=== PATIENT | male | born 1955 | race Caucasian/White ===

== ENCOUNTER 2017-11-23 18:38 | Inpatient (IN) | payer MEDICAID ==
[2017-11-23 19:18] LABS: MEAN PLATELET VOLUME 7.8 fl; RED BLOOD COUNT 3.59 Mil/cmm (4.30-5.70)
[2017-11-23 19:23] LABS: HEMATOCRIT 27.3 % (41.0-60); HEMOGLOBIN 8.9 gm/dL (12-16); MEAN CELL VOLUME 76.2 fl (80-99); MEAN CORPUSCULAR HEMOGLOBIN 24.8 pg (26.0-30.0); MEAN CORPUSCULAR HGB CONC 32.5 pg (28.0-36.0); PLATELET COUNT 473 Th/cmm (150-400); RED CELL DISTRIBUTION WIDTH 15.6 % (11.5-20.0)
--- NOTE | 2017-11-23 19:23 | ED Physician Chart ---
ED Chief Complaint/HPI - Patient Information Date Seen:: 11/23/17 Time Seen:: 18:55 Chief Complaint:: ALOC History of Present Illness:: onset x one day of ALOC, AMS, and weakness; no report of trauma, H/As, S/T, neck pain, C/P, SOB, Abd. Pain, A/N/V/D/C, fever, chills, or urinary s/s; pt's last tetanus shot: < 5 years; UTD Allergies:: Allergies Allergy/AdvReac Type Severity Reaction Status Date / Time UNOBTN - Unobtainable Allergy Verified 11/23/17 18:57 Vitals:: Vital Signs - 8 hr 11/23/17 18:57 Temp 97.9 F HR 80 RR 22 BP 109/49 O2 Sat % 96 Historian:: Patient, EMS Review:: Nurse's Note Reviewed, Old Chart Reviewed, EMS run form Reviewed <Alec Stout - Last Filed: 11/23/17 19:20> - Patient Information Allergies:: Allergies Allergy/AdvReac Type Severity Reaction Status Date / Time UNOBTN - Unobtainable Allergy Verified 11/23/17 18:57 Vitals:: Vital Signs - 8 hr 11/23/17 18:57 Temp 97.9 F HR 80 RR 22 BP 109/49 O2 Sat % 96 <Long Saini - Last Filed: 11/23/17 22:19> ED Review of Systems - Review of Systems General/Constitutional: Fever, No chills, No weight loss, Weakness, No diaphoresis, No edema, No loss of appetite Skin: No skin lesions, No rash, No bruising Head: No headache, No light-headedness Eyes: No loss of vision, No pain, No diplopia ENT: No earache, No nasal drainage, No sore throat, No tinnitus Neck: No neck pain, No swelling, No thyromegaly, No stiffness, No mass noted Cardio Vascular: No chest pain, No palpitations, No PND, No orthopnea, No edema Pulmonary: No SOB, No cough, No sputum, No wheezing GI: No nausea, No vomiting, No diarrhea, No pain, No melena, No hematochezia, No constipation, No hematemesis G/U: No dysuria, No frequency, No hematuria, No nacturia Musculoskeletal: No bone or joint pain, No back pain, No muscle pain Endocrine: No polyuria, No polydipsia Psychiatric: No prior psych history, No depression, No anxiety, No suicidal ideation, No homicidal ideation, No auditory hallucination, No visual hallucination Hematopoietic: No bruising, No lymphadenopathy Allergic/Immuno: No urticaria, No angioedema Neurological: No syncope, No focal symptoms, No weakness, No paresthesia, No headache, No seizure, No dizziness, Confusion, No vertigo <ElizabethkaylindennyAlec - Last Filed: 11/23/17 19:20> ED Past Medical History - Past Medical History Obtainable: Yes Past Medical History: HTN, Dyslipidemia, Dementia Family History: HTN Social History: Smoker, Alcohol, No Drug Use, Single Surgical History: None Psychiatricy History: Dementia Medication: Reviewed <ElizabethkaylindennyAlec - Last Filed: 11/23/17 19:20> ED Physical Exam - Physical Examination General/Constitutional: Awake, Well-developed, well-nourished, Alert, No distress, GCS 15, Non-toxic appearing, Ambulatory Head: Atraumatic Eyes: Lids, conjuctiva normal, PERRL, EOMI Skin: Nl inspection, No rash, No skin lesions, No ecchymosis, Well hydrated, No lymphadenopathy ENMT: External ears, nose nl, TM canals nl, Nasal exam nl, Lips, teeth, gums nl , Oropharynx nl, Tonsils nl Neck: Nontender, Full ROM w/o pain, No JVD, No nuchal rigidity, No bruit, No mass, No stridor Respiratory: Nl effort/Exclusion, Clear to Auscultation, No Wheeze/Rhonchi/Rales Cardio Vascular: RRR, No murmur, gallop, rubs, NL S1 S2, Carotid/Femoral/Distal pulses equal bilaterally GI: No tenderness/rebounding/guarding, No organomegaly, No hernia, Normal BS's, Nondistended, No mass/bruits, No McBurney tenderness, Rectum exam nl : No CVA tenderness Extremities: No tenderness or effusion, Full ROM, normal strength in all extremities, No edema, Normal digits & nails Neuro/Psych: Alert/oriented, DTR's symmetric, Normal sensory exam, Normal motor strength, Judgement/insight normal, Mood normal, Normal gait, No focal deficits Misc: Normal back, No paraspinal tenderness <Alec Stout - Last Filed: 11/23/17 19:20> ED Labs/Radiology/EKG Results - Lab Results Results: Laboratory Tests 11/23/17 11/23/17 11/23/17 19:05 19:05 19:05 WBC 16.3 H RBC 3.59 L Hgb 8.9 L Hct 27.3 L MCV 76.2 L MCH 24.8 L MCHC Differential 32.5 RDW 15.6 Plt Count 473 H MPV 7.8 Add Manual Diff YES Neutrophils % [employer] Band Neutrophils % 3 Lymphocytes % [employer] Monocytes % [employer] Eosinophils % [employer] Basophils % [employer] Neutrophils (Manual) 60 Lymphocytes 29 Monocytes 5 Eosinophils 3 Microcytosis 1+ PT 11.3 INR 1.09 Sodium 137 Potassium 3.9 Chloride 108 H Carbon Dioxide 20.2 L Anion Gap 12.7 BUN 21 Creatinine 0.9 Est GFR ( Amer) > 60.0 Est GFR (Non-Af Amer) > 60.0 BUN/Creatinine Ratio 23.3 Glucose 98 Calcium 8.8 Total Bilirubin 0.2 L AST 12 L ALT 8 Alkaline Phosphatase 55 Creatine Kinase 113 Troponin I B-Natriuretic Peptide Total Protein 8.7 H Albumin 3.4 L Globulin 5.3 Albumin/Globulin Ratio 0.6 L Triglycerides 68 Cholesterol 147 LDL Cholesterol Direct 98 HDL Cholesterol 36 Ethyl Alcohol 11/23/17 11/23/17 11/23/17 19:05 19:05 19:05 WBC RBC Hgb Hct MCV MCH MCHC Differential RDW Plt Count MPV Add Manual Diff Neutrophils % Band Neutrophils % Lymphocytes % Monocytes % Eosinophils % Basophils % Neutrophils (Manual) Lymphocytes Monocytes Eosinophils Microcytosis PT INR Sodium Potassium Chloride Carbon Dioxide Anion Gap BUN Creatinine Est GFR ( Amer) Est GFR (Non-Af Amer) BUN/Creatinine Ratio Glucose Calcium Total Bilirubin AST ALT Alkaline Phosphatase Creatine Kinase Troponin I < 0.01 L B-Natriuretic Peptide 168.0 H Total Protein Albumin Globulin Albumin/Globulin Ratio Triglycerides Cholesterol LDL Cholesterol Direct HDL Cholesterol Ethyl Alcohol 274 H - EKG Interpretations Rate & Rhythm: normal sinus rhythm with a rate of 87 [place]: normal Comments:: Premature atrial contractions <Long Saini - Last Filed: 11/23/17 22:19> ED Septic Shock - . Is Septic Shock (SBP<90, OR Lactate>4 mmol\L) present?: No - <6hrs of presentation: Vital Signs: Vital Signs - 8 hr 11/23/17 18:57 Temp 97.9 F HR 80 RR 22 BP 109/49 O2 Sat % 96 <Alec Stout - Last Filed: 11/23/17 19:20> - <6hrs of presentation: Vital Signs: Vital Signs - 8 hr 11/23/17 18:57 Temp 97.9 F HR 80 RR 22 BP 109/49 O2 Sat % 96 <Long Saini - Last Filed: 11/23/17 22:19> ED Reassessment (Disposition) - Reassessment Reassessment Condition:: Improved - Diagnosis Diagnosis:: ALOC; AMS; Weakness <Alec Stout - Last Filed: 11/23/17 19:20>
[2017-11-23 19:27] LABS: WHITE BLOOD COUNT 16.3 Th/cmm (4.8-10.8)
[2017-11-23 19:30] LABS: INR 1.09 (0.5-1.4); PROTHROMBIN TIME (TEST) 11.3 SECONDS (9.5-11.5)
[2017-11-23 19:35] LABS: ALB/GLOB RATIO 0.6 (1.0-1.8); ALBUMIN 3.4 gm/dL (4.2-5.5); ALKALINE PHOSPHATASE 55 U/L (34-104); ANION GAP 12.7 (7.0-16.0); BILIRUBIN,TOTAL 0.2 mg/dL (0.3-1.0); BUN - UREA NITROGEN 21 mg/dL (7-25); CALCIUM SERUM 8.8 mg/dL (8.6-10.3); CARBON DIOXIDE 20.2 mEq/L (21.0-31.0); CHLORIDE 108 mEq/L (98-107); CHOLESTEROL 147 mg/dL (<200); CREATININE - SERUM 0.9 mg/dL (0.7-1.3); CREATININE KINASE 113 U/L (30-223); GFR AFRICAN-AMERICAN > 60.0 ml/min (>90); GFR NON AFRICAN-AMERICAN > 60.0 ml/min; GLUCOSE 98 mg/dL (70-105); HDL -HIGH DENSITY LIPOPROTEIN 36 mg/dL (23-92); POTASSIUM SERUM 3.9 mEq/L (3.5-5.1); SGOT 12 U/L (13-39); SGPT/ALT 8 U/L (7-52); SODIUM SERUM 137 mEq/L (136-145); TOTAL PROTEIN,SERUM 8.7 gm/dL (6.0-8.3); TRIGLYCERIDES 68 mg/dL (<150)
[2017-11-23 19:40] LABS: BAND NEUTROPHILE 3 % (0-10); EOSINOPHIL 3 % (0-5); LYMPHOCYTE 29 % (20-50); MONOCYTE 5 % (2-10); NEUTROPHILS 60 % (40-80)
[2017-11-23] MEDS ORDERED: Sodium Chloride 0.9% 1,000 ML IV ONE (20:31)
[2017-11-24] MEDS ORDERED: D5-0.45NS 1,000 ML IV SCH (01:00)
[2017-11-24] MEDS ORDERED: Magnesium Sulfate 1 gm/2 mL 2mL Vial IV ONE (05:09)
[2017-11-24] MEDS ORDERED: Thiamine 100 mg/mL 2mL Vial ONE (05:13)
[2017-11-24] MEDS ORDERED: Multivitamin Inj 10 mL Vial IV ONE (05:14)
[2017-11-24] MEDS: Multivitamin Inj 10 ML, Thiamine HCL 100 MG, Magnesium Sulfate 2 GM, Folic Acid 1 MG in... IV SCH (05:34)
--- NOTE | 2017-11-24 05:45 | History and Physical ---
History of Present Illness - HPI Chief Complaint: ALOC HPI: 62 y/o male who presents to [facility] ER for ALOC. Patient was found unresponsive on a public transportation vehicle. Was bought here for evaluation and treatment. Patient had initial labwork done which revealed the following... WBC 16.3 H/H 8.9/27.3 platelets 473K Na 137 K 3.9 Bun 21 Cr 0.9 Glu 84 BNP 168 ETOH 274 Lactic Acid 1.85 Vital Signs: Last Vital Signs Temp 97.2 F 11/24/17 04:00 Pulse 76 11/24/17 05:00 Resp 21 11/24/17 05:00 BP 102/63 11/24/17 05:00 Pulse Ox 98 11/24/17 05:00 Past Medical History Cardiovascular: Report: HTN, Hyperlipidemia Pulmonary: Report: No Pertinent Hx FITNESS ASSISTANT: Report: Dementia GI: Report: No Pertinent Hx Psych: Report: No Pertinent Hx Musculoskeletal: Report: No Pertinent Hx Rheumatologic: Report: No pertinent Hx Infectious Disease: Report: No Pertinent Hx Renal/: Report: No Pertinent Hx Endocrine: Report: No Pertinent Hx Dermatology: Report: No Pertinent Hx - Past Surgical History Past Surgical History: No pertinent Hx Family Medical History - Family Member Mother History Unknown: Yes Social History Smoke: No Alcohol: Other (h/o ETOH abuse) Drugs: None Lives: Homeless - Medications Home Medications: Home Medication Medication Instructions Recorded Type Unobtainable 11/23/17 History - Allergies Allergies/Adverse Reactions: Allergies Allergy/AdvReac Type Severity Reaction Status Date / Time UNOBTN - Unobtainable Allergy Verified 11/23/17 18:57 Review of Systems - Review of Systems Review of Systems: unable to obtain due to patient's condition Constitutional: Report: No Significant Eyes: Report: No Significant ENT: Report: No Significant Respiratory: Report: No Significant Cardiovascular: Report: No Significant Gastrointestinal: Report: No Significant Genitourinary: Report: No Significant Musculoskeletal: Report: No Significant Skin: Report: No Significant Neurological: Report: Confusion Physical Exam - Physical Exam HEENT: Report: Ears Nose Throat within normal limits, Pharnyx within normal limits Neck: Report: Within normal limits Cardiovascular Systems: Report: +s1/s2 noted Respiratory: Report: Breath Sounds are within normal limits Abdomen: Report: Non-tender to palpation Back: Report: Inspection of back is within normal limits. Extremities: Report: Non-tender to palpation. Skin: Report: Color of skin is within normal limits Neuro/Psych: Report: Mood affect is within normal limits, A+Ox3 - Lab Results All Lab Results last 24 hours: Laboratory Results - last 24 hr 11/23/17 11/23/17 11/23/17 19:05 19:05 19:05 WBC 16.3 H RBC 3.59 L Hgb 8.9 L Hct 27.3 L MCV 76.2 L MCH 24.8 L MCHC Differential 32.5 RDW 15.6 Plt Count 473 H MPV 7.8 Add Manual Diff YES Neutrophils % RN CHRONIC Band Neutrophils % 3 Lymphocytes % RN CHRONIC Monocytes % RN CHRONIC Eosinophils % RN CHRONIC Basophils % RN CHRONIC Neutrophils (Manual) 60 Lymphocytes 29 Monocytes 5 Eosinophils 3 Microcytosis 1+ PT 11.3 INR 1.09 Sodium 137 Potassium 3.9 Chloride 108 H Carbon Dioxide 20.2 L Anion Gap 12.7 BUN 21 Creatinine 0.9 Est GFR ( Amer) > 60.0 Est GFR (Non-Af Amer) > 60.0 BUN/Creatinine Ratio 23.3 Glucose 98 POC Glucose Whole Bld Lactic Acid Calcium 8.8 Total Bilirubin 0.2 L AST 12 L ALT 8 Alkaline Phosphatase 55 Creatine Kinase 113 Troponin I B-Natriuretic Peptide Total Protein 8.7 H Albumin 3.4 L Globulin 5.3 Albumin/Globulin Ratio 0.6 L Triglycerides 68 Cholesterol 147 LDL Cholesterol Direct 98 HDL Cholesterol 36 Ethyl Alcohol 11/23/17 11/23/17 11/23/17 19:05 19:05 19:05 WBC RBC Hgb Hct MCV MCH MCHC Differential RDW Plt Count MPV Add Manual Diff Neutrophils % Band Neutrophils % Lymphocytes % Monocytes % Eosinophils % Basophils % Neutrophils (Manual) Lymphocytes Monocytes Eosinophils Microcytosis PT INR Sodium Potassium Chloride Carbon Dioxide Anion Gap BUN Creatinine Est GFR ( Amer) Est GFR (Non-Af Amer) BUN/Creatinine Ratio Glucose POC Glucose Whole Bld Lactic Acid Calcium Total Bilirubin AST ALT Alkaline Phosphatase Creatine Kinase Troponin I < 0.01 L B-Natriuretic Peptide 168.0 H Total Protein Albumin Globulin Albumin/Globulin Ratio Triglycerides Cholesterol LDL Cholesterol Direct HDL Cholesterol Ethyl Alcohol 274 H 11/23/17 11/23/17 11/24/17 20:20 23:15 00:22 WBC RBC Hgb Hct MCV MCH MCHC Differential RDW Plt Count MPV Add Manual Diff Neutrophils % Band Neutrophils % Lymphocytes % Monocytes % Eosinophils % Basophils % Neutrophils (Manual) Lymphocytes Monocytes Eosinophils Microcytosis PT INR Sodium Potassium Chloride Carbon Dioxide Anion Gap BUN Creatinine Est GFR ( Amer) Est GFR (Non-Af Amer) BUN/Creatinine Ratio Glucose POC Glucose 84 Whole Bld Lactic Acid 2.63 H* 1.85 Calcium Total Bilirubin AST ALT Alkaline Phosphatase Creatine Kinase Troponin I B-Natriuretic Peptide Total Protein Albumin Globulin Albumin/Globulin Ratio Triglycerides Cholesterol LDL Cholesterol Direct HDL Cholesterol Ethyl Alcohol - Assessment Assessment: Current Active Problems Problem Status Onset ALTERED MENTAL STATUS WITH OLD WOUNDS Acute ALOC ETOH abuse leukoctosis WBC 16K anemia hb 8.9 possible sepsis aspiration PNA elevated BNP hypotensive - Plan Plan: will order zosyn per pharmacy repeat CBC,CMP,lactic acid, BNP this AM chest xray NS keep NPO repeat ETOH level this AM
[2017-11-24] MEDS ORDERED: Piperacillin Sodium/Tazobact 3.375 gm Vial IV ONE (05:48)
[2017-11-24] MEDS ORDERED: Sodium Chloride 0.9% 1,000 ML IV SCH (06:00)
--- NOTE | 2017-11-24 08:42 | Diagnostic Imaging Report ---
CHEST X-RAY: AP view INDICATION: pain COMPARISON: None FINDINGS: Patient is rotated. Multiple chronic right rib fractures are noted. No focal consolidation pleural effusions or evidence of pneumothorax. Heart size is normal. Degenerative changes of the spine are noted. IMPRESSION: Limited exam due to rotation. Multiple old right rib fractures are noted. No evidence of pneumothorax Chronic lung changes with no focal consolidation identified.
--- NOTE | 2017-11-24 08:58 | Diagnostic Imaging Report ---
CHEST X-RAY: AP view INDICATION: pain COMPARISON: 11/23/2017 FINDINGS: Bilateral developing interstitial infiltrates are noted.. No consolidation or effusions heart size normal. Atherosclerosis is noted. IMPRESSION: Bilateral developing interstitial infiltrates. Clinical correlation recommended.
--- NOTE | 2017-11-24 09:07 | Diagnostic Imaging Report ---
Head CT without intravenous contrast Indication: Altered level of consciousness Comparison: None Technique: Axial images were obtained from the vertex to the skull base without IV contrast. Coronal reconstructions were made. Total DLP: 740, CTDI37 FINDINGS: Images of the brain obtained without contrast demonstrate no evidence of an acute hemorrhage. Atrophy is noted. The sheehan-white matter differentiation is preserved. The ventricles and basal cisterns are patent. No mass effect or midline shift. Note exam is limited due to motion. Nasal fractures are noted. Air-fluid levels are seen within the bilateral maxillary sinuses. There is irregularity of the lateral wall of the right orbit. No significant focal soft tissue swelling. IMPRESSION: Limited exam due to motion. No evidence of an acute intercranial hemorrhage. Nasal fractures. There are air-fluid levels in the paranasal sinuses which may be posttraumatic. There is slight irregularity of lateral wall of the right orbit which is probably due to suture line. A Nondisplaced fracture is considered less likely. Please correlate with the findings. If necessary follow-up CT facial bones may also be obtained for further assessment. Atrophy.
--- NOTE | 2017-11-24 09:15 | Diagnostic Imaging Report ---
CT cervical spine without IV contrast HISTORY: Trauma COMPARISON: None Technique: Axial images were obtained from the skull base to the upper thoracic spine without IV contrast. Multiplanar reconstructions were made. Total DLP: 356, CTDI16.8 FINDINGS: Exam is severely limited due to motion. Images of the cervical spine obtained without contrast multilevel degenerative changes advanced C4-C7. Multilevel facet degenerative changes are seen more pronounced on the left side. No gross fracture identified, however, assessment is limited due to motion. There is spinal scoliosis. No prevertebral soft tissue swelling. Biapical opacities are noted. IMPRESSION: Severely limited exam due to motion. No gross fracture identified, however, when clinically diffusible, repeat examination is recommended for further assessment. Multilevel advanced degenerative changes. Scoliosis. Biapical lung opacities probably due to scarring.
--- NOTE | 2017-11-24 10:16 | Consultation ---
Consult Note - Consult Note Service Date: 11/24/17 Referring Physician: Philip Mcqueen Consult Note: PHYSICIAN Consultation Note: Date of Admission: 11/23/17 Purpose of Consultation: Leukocytosis Chief Complaint: Patient MASHA BURK was admitted to location Intensive Care Unit with ALOC, POSSIBLE PNA ASPIRATION,ETOH. History of Present Illness: 62-year-old male with a past medical history of hyperlipidemia found unresponsive and one of the public transportation vehicle, breast. He was brought to the ER for further evaluation and management. He was found to have arm lysis and wound on left eyebrow with active bleeding. On initial evaluation his temperature was 97.9F and and WBC count was 16,300. Currently his responsive but sedated by Ativan. He is able to say his name but difficult to comprehend. Alcohol level was 274. Past Medical History: Hyperlipidemia, alcohol abuse. Allergies Allergy/AdvReac Type Severity Reaction Status Date / Time UNOBTN - Unobtainable Allergy Verified 11/23/17 18:57 Vital Signs Temp 97.5 F 11/24/17 08:00 Pulse 68 11/24/17 10:00 Resp 20 11/24/17 10:00 BP 91/57 11/24/17 10:00 Pulse Ox 99 11/24/17 10:00 Intake & Output 11/23/17 11/24/17 11/24/17 18:59 06:59 18:59 Intake Total 1050 Balance 1050 Weight (lbs) 63.503 kg 63.503 kg 60.872 kg Intake: Intake, IV Amount 1050 Piperacillin Sodium/ 50 Tazobact 3.375 gm In Dextrose 5% 50 ml @ 100 mls/hr IV Q6HR [facility] Rx#: [id number] Other: # Voids 3 # Bowel Movements 0 Weight Source Estimated Bedscale Bedscale Laboratory Results - last 24 hr 11/23/17 11/23/17 11/23/17 19:05 19:05 19:05 WBC 16.3 H RBC 3.59 L Hgb 8.9 L Hct 27.3 L MCV 76.2 L MCH 24.8 L MCHC Differential 32.5 RDW 15.6 Plt Count 473 H MPV 7.8 Add Manual Diff YES Neutrophils % [employer] Band Neutrophils % 3 Lymphocytes % [employer] Monocytes % [employer] Eosinophils % [employer] Basophils % [employer] Neutrophils (Manual) 60 Lymphocytes 29 Monocytes 5 Eosinophils 3 Microcytosis 1+ PT 11.3 INR 1.09 Sodium 137 Potassium 3.9 Chloride 108 H Carbon Dioxide 20.2 L Anion Gap 12.7 BUN 21 Creatinine 0.9 Est GFR ( Amer) > 60.0 Est GFR (Non-Af Amer) > 60.0 BUN/Creatinine Ratio 23.3 Glucose 98 POC Glucose Whole Bld Lactic Acid Calcium 8.8 Total Bilirubin 0.2 L AST 12 L ALT 8 Alkaline Phosphatase 55 Creatine Kinase 113 Troponin I B-Natriuretic Peptide Total Protein 8.7 H Albumin 3.4 L Globulin 5.3 Albumin/Globulin Ratio 0.6 L Triglycerides 68 Cholesterol 147 LDL Cholesterol Direct 98 HDL Cholesterol 36 Ethyl Alcohol 11/23/17 11/23/17 11/23/17 19:05 19:05 19:05 WBC RBC Hgb Hct MCV MCH MCHC Differential RDW Plt Count MPV Add Manual Diff Neutrophils % Band Neutrophils % Lymphocytes % Monocytes % Eosinophils % Basophils % Neutrophils (Manual) Lymphocytes Monocytes Eosinophils Microcytosis PT INR Sodium Potassium Chloride Carbon Dioxide Anion Gap BUN Creatinine Est GFR ( Amer) Est GFR (Non-Af Amer) BUN/Creatinine Ratio Glucose POC Glucose Whole Bld Lactic Acid Calcium Total Bilirubin AST ALT Alkaline Phosphatase Creatine Kinase Troponin I < 0.01 L B-Natriuretic Peptide 168.0 H Total Protein Albumin Globulin Albumin/Globulin Ratio Triglycerides Cholesterol LDL Cholesterol Direct HDL Cholesterol Ethyl Alcohol 274 H 11/23/17 11/23/17 11/24/17 20:20 23:15 00:22 WBC RBC Hgb Hct MCV MCH MCHC Differential RDW Plt Count MPV Add Manual Diff Neutrophils % Band Neutrophils % Lymphocytes % Monocytes % Eosinophils % Basophils % Neutrophils (Manual) Lymphocytes Monocytes Eosinophils Microcytosis PT INR Sodium Potassium Chloride Carbon Dioxide Anion Gap BUN Creatinine Est GFR ( Amer) Est GFR (Non-Af Amer) BUN/Creatinine Ratio Glucose POC Glucose 84 Whole Bld Lactic Acid 2.63 H* 1.85 Calcium Total Bilirubin AST ALT Alkaline Phosphatase Creatine Kinase Troponin I B-Natriuretic Peptide Total Protein Albumin Globulin Albumin/Globulin Ratio Triglycerides Cholesterol LDL Cholesterol Direct HDL Cholesterol Ethyl Alcohol 11/24/17 11/24/17 05:00 05:00 WBC RBC Hgb Hct MCV MCH MCHC Differential RDW Plt Count MPV Add Manual Diff Neutrophils % Band Neutrophils % Lymphocytes % Monocytes % Eosinophils % Basophils % Neutrophils (Manual) Lymphocytes Monocytes Eosinophils Microcytosis PT INR Sodium Potassium Chloride Carbon Dioxide Anion Gap BUN Creatinine Est GFR ( Amer) Est GFR (Non-Af Amer) BUN/Creatinine Ratio Glucose POC Glucose Whole Bld Lactic Acid 1.72 Calcium Total Bilirubin AST ALT Alkaline Phosphatase Creatine Kinase Troponin I B-Natriuretic Peptide Total Protein Albumin Globulin Albumin/Globulin Ratio Triglycerides Cholesterol LDL Cholesterol Direct HDL Cholesterol Ethyl Alcohol 71 H Home Medication Medication Instructions Recorded Type Unobtainable 11/23/17 History Current Medications Generic Name Dose Route Start Last Admin Trade Name Freq PRN Reason Stop Dose Admin Multivitamins/Minerals 10 ml/ 1,015.2 mls @ 100 mls/hr 11/24/17 06:00 05:34 Thiamine HCl 100 mg/ Magnesium IV 01/23/18 05:59 100 mls/hr Sulfate 2 gm/ Folic Acid 1 mg Q24H MOISES Administration / Sodium Chloride Piperacillin Sod/Tazobactam 50 mls @ 100 mls/hr 11/24/17 06:00 11/24/17 06:28 Sod 3.375 gm/ Dextrose IV 01/23/18 05:59 Infused Q6HR MOISES Infusion Dextrose/Sodium Chloride 1,000 mls @ 75 mls/hr 11/24/17 06:00 D5-0.9%Ns IV 01/23/18 05:59 .[id number] MOISES Lorazepam 0.5 mg 11/24/17 05:04 11/24/17 09:21 Ativan IVP 01/23/18 05:03 0.5 mg Q4HR PRN Administration Agitation Protocol Miscellaneous 1 ea 11/24/17 05:00 Zosyn Iv Per Pharmacy 01/23/18 04:59 PRN MOISES Pantoprazole Sodium 40 mg 11/24/17 09:00 11/24/17 09:20 Protonix IVP 01/23/18 08:59 40 mg DAILY MOISES Administration Review of Systems: A 12 point ROS was reviewed with the pertinent positive and negatives noted in the HPI. Social History Smoking Status Smoker, status unknown Drug Use No Alcohol Use Yes Family Medical History Family Medical History Start: 11/24/17 00: 18 Freq: ONCE Status: Active Protocol: Document 11/24/17 00:18 XHANG (Rec: 11/24/17 00:25 [id number] [id number]) Family Medical History Mother History Unknown Yes Physical Exam: General: Comfortable not in acute distress. HEENT: Head: NC NT. Face: Patient has laceration wound on and above the left eyebrow laterally. There is some active bleeding. Neck: Supple, no JVD. Cardio: S1 and S2 within normal limits. Respiratory: CTAP. Abdominal: Soft, nontender, nondistended bowel sounds present. Genital/Urinary: Deferred. Extremities: No cyanosis, no clubbing, no edema. Neurological: Alert and awake but upset and aggressive. Assessment: 1. Altered mental status due to alcohol abuse. 2. Leukocytosis or sepsis versus secondary aspiration pneumonia. 3. Laceration wound on left eyebrow/face. 4. Alcohol abuse. Plan: Check drug screen. Continue Zosyn. Thank you, Dr. Mcqueen for involving taking care of this patient. Signed, Ulices Tatum M.D. [id number]
[2017-11-24 15:42] LABS: AMPHETAMINE URINE NEGATIVE (NEGATIVE); BARBITURATES URINE NEGATIVE (NEGATIVE); BENZODIAZEPINES QUAL URINE POSITIVE (NEGATIVE); CANNABINOID THC NEGATIVE (NEGATIVE); COCAINE METABOLITE QUAL URINE NEGATIVE (NEGATIVE); METHADONE URINE NEGATIVE (NEGATIVE); METHAMPHETAMINES QUAL URINE NEGATIVE (NEGATIVE); OPIATES (MORPHINE) QUAL. URINE NEGATIVE (NEGATIVE); PHENCYCLIDINE (PCP) URINE NEGATIVE (NEGATIVE); TRICYCLICS (TCA) QUAL. URINE NEGATIVE (NEGATIVE)
[2017-11-25 05:27] LABS: ALB/GLOB RATIO 0.6 (1.0-1.8); ALBUMIN 2.5 gm/dL (4.2-5.5); ALKALINE PHOSPHATASE 43 U/L (34-104); ANION GAP 6.7 (7.0-16.0); BILIRUBIN,TOTAL 0.4 mg/dL (0.3-1.0); BUN - UREA NITROGEN 11 mg/dL (7-25); CALCIUM SERUM 8.1 mg/dL (8.6-10.3); CHLORIDE 108 mEq/L (98-107); CREATININE - SERUM 0.8 mg/dL (0.7-1.3); GFR AFRICAN-AMERICAN > 60.0 ml/min (>90); GFR NON AFRICAN-AMERICAN > 60.0 ml/min; GLUCOSE 104 mg/dL (70-105); POTASSIUM SERUM 3.7 mEq/L (3.5-5.1); SGOT 10 U/L (13-39); SGPT/ALT 6 U/L (7-52); SODIUM SERUM 134 mEq/L (136-145); TOTAL PROTEIN,SERUM 6.9 gm/dL (6.0-8.3)
--- NOTE | 2017-11-25 06:20 | General Progress Note ---
Subjective - Review of Systems Service Date: 11/25/17 Subjective: Patient is more awake and alert. Wants to eat. cooperative. less combative. Objective - Results Result Diagrams: 11/23/17 19:05 11/23/17 19:05 Recent Labs: Laboratory Last Values WBC 16.3 Th/cmm (4.8-10.8) H 11/23/17 19:05 RBC 3.59 Mil/cmm (4.30-5.70) L 11/23/17 19:05 Hgb 8.9 gm/dL (12-16) L 11/23/17 19:05 Hct 27.3 % (41.0-60) L 11/23/17 19:05 MCV 76.2 fl (80-99) L 11/23/17 19:05 MCH 24.8 pg (26.0-30.0) L 11/23/17 19:05 MCHC Differential 32.5 pg (28.0-36.0) 11/23/17 19:05 RDW 15.6 % (11.5-20.0) 11/23/17 19:05 Plt Count 473 Th/cmm (150-400) H 11/23/17 19:05 MPV 7.8 fl 11/23/17 19:05 Add Manual Diff YES 11/23/17 19:05 Neutrophils % MEDICAL TECHNOLOGIST CHEMISTRY 11/23/17 19:05 Band Neutrophils % 3 % (0-10) 11/23/17 19:05 Lymphocytes % MEDICAL TECHNOLOGIST CHEMISTRY 11/23/17 19:05 Monocytes % MEDICAL TECHNOLOGIST CHEMISTRY 11/23/17 19:05 Eosinophils % MEDICAL TECHNOLOGIST CHEMISTRY 11/23/17 19:05 Basophils % MEDICAL TECHNOLOGIST CHEMISTRY 11/23/17 19:05 Neutrophils (Manual) 60 % (40-80) 11/23/17 19:05 Lymphocytes 29 % (20-50) 11/23/17 19:05 Monocytes 5 % (2-10) 11/23/17 19:05 Eosinophils 3 % (0-5) 11/23/17 19:05 Microcytosis 1+ 11/23/17 19:05 PT 11.3 SECONDS (9.5-11.5) 11/23/17 19:05 INR 1.09 (0.5-1.4) 11/23/17 19:05 Sodium 137 mEq/L (136-145) 11/23/17 19:05 Potassium 3.9 mEq/L (3.5-5.1) 11/23/17 19:05 Chloride 108 mEq/L (98-107) H 11/23/17 19:05 Carbon Dioxide 20.2 mEq/L (21.0-31.0) L 11/23/17 19:05 Anion Gap 12.7 (7.0-16.0) 11/23/17 19:05 BUN 21 mg/dL (7-25) 11/23/17 19:05 Creatinine 0.9 mg/dL (0.7-1.3) 11/23/17 19:05 Est GFR ( Amer) > 60.0 ml/min (>90) 11/23/17 19:05 Est GFR (Non-Af Amer) > 60.0 ml/min 11/23/17 19:05 BUN/Creatinine Ratio 23.3 11/23/17 19:05 Glucose 98 mg/dL (70-105) 11/23/17 19:05 POC Glucose 84 MG/DL (70 - 105) 11/24/17 00:22 Whole Bld Lactic Acid 1.72 mmol/L (0.60-1.99) 11/24/17 05:00 Calcium 8.8 mg/dL (8.6-10.3) 11/23/17 19:05 Total Bilirubin 0.2 mg/dL (0.3-1.0) L 11/23/17 19:05 AST 12 U/L (13-39) L 11/23/17 19:05 ALT 8 U/L (7-52) 11/23/17 19:05 Alkaline Phosphatase 55 U/L (34-104) 11/23/17 19:05 Ammonia 63 umol/L (16-53) H 11/24/17 10:45 Creatine Kinase 113 U/L (30-223) 11/23/17 19:05 Troponin I < 0.01 ng/mL (0.01-0.05) L 11/23/17 19:05 B-Natriuretic Peptide 168.0 pg/mL (5.0-100.0) H 11/23/17 19:05 Total Protein 8.7 gm/dL (6.0-8.3) H 11/23/17 19:05 Albumin 3.4 gm/dL (4.2-5.5) L 11/23/17 19:05 Globulin 5.3 gm/dL 11/23/17 19:05 Albumin/Globulin Ratio 0.6 (1.0-1.8) L 11/23/17 19:05 Triglycerides 68 mg/dL (<150) 11/23/17 19:05 Cholesterol 147 mg/dL (<200) 11/23/17 19:05 LDL Cholesterol Direct 98 mg/dL (75-193) 11/23/17 19:05 HDL Cholesterol 36 mg/dL (23-92) 11/23/17 19:05 Urine Opiates Screen NEGATIVE (NEGATIVE) 11/24/17 15:00 Urine Methadone Screen NEGATIVE (NEGATIVE) 11/24/17 15:00 Ur Barbiturates Screen NEGATIVE (NEGATIVE) 11/24/17 15:00 Ur Tricyclics Screen NEGATIVE (NEGATIVE) 11/24/17 15:00 Ur Phencyclidine Scrn NEGATIVE (NEGATIVE) 11/24/17 15:00 Amphetamines Screen NEGATIVE (NEGATIVE) 11/24/17 15:00 U Methamphetamines Scrn NEGATIVE (NEGATIVE) 11/24/17 15:00 U Benzodiazepines Scrn POSITIVE (NEGATIVE) H 11/24/17 15:00 U Cocaine Metab Screen NEGATIVE (NEGATIVE) 11/24/17 15:00 U Cannabinoids Screen NEGATIVE (NEGATIVE) 11/24/17 15:00 Ethyl Alcohol 71 mg/dL (0-10) H 11/24/17 05:00 - Physical Exam Vitals and I&O: Vital Signs Temp 98.2 F 11/25/17 01:00 Pulse 56 11/25/17 02:00 Resp 17 11/25/17 02:00 BP 90/55 11/25/17 02:00 Pulse Ox 100 11/25/17 02:00 Intake & Output 11/24/17 11/24/17 11/25/17 06:59 18:59 06:59 Intake Total 1050 1115.2 50 Output Total 600 Balance 1050 515.2 50 Weight (lbs) 63.503 kg 58.876 kg Intake: Intake, IV Amount 1050 1115.2 50 Multivitamin Inj 10 ml 1015.2 Thiamine HCL 100 mg Magnesium Sulfate 2 gm Folic Acid 1 mg In Sodium Chloride 0.9% 1,000 ml @ 100 mls/hr IV Q24H [facility] Rx#:[id number] Piperacillin Sodium/ 50 100 50 Tazobact 3.375 gm In Dextrose 5% 50 ml @ 100 mls/hr IV Q6HR [facility] Rx#: [id number] Oral 0 Output: Urine 600 Other: # Voids 4 # Bowel Movements 0 Weight Source Bedscale Bedscale Active Medications: Current Medications [place] Oil/[place] Balsam/Trypsin (Venelex) 1 appl TP DAILY [facility] Stop: 01/24/18 08:59 Multivitamins/Minerals 10 ml/Thiamine HCl 100 mg/ Magnesium Sulfate 2 gm/ Folic Acid 1 mg / Sodium Chloride 1,015.2 mls @ 100 mls/hr IV Q24H [facility] Stop: 01/23/18 05:59 Last Infusion: 11/24/17 15:44 Dose: Infused Piperacillin Sod/Tazobactam (Sod 3.375 gm/ Dextrose) 50 mls @ 100 mls/hr IV Q6HR [facility] Stop: 01/23/18 05:59 Last Admin: 11/25/17 05:29 Dose: 100 mls/hr Dextrose/Sodium Chloride (D5-0.9%Ns) 1,000 mls @ 75 mls/hr IV .[id number] [facility] Stop: 01/23/18 05:59 Lorazepam (Ativan) 0.5 mg IVP Q4HR PRN; Protocol PRN Reason: Agitation Stop: 01/23/18 05:03 Last Admin: 11/24/17 09:21 Dose: 0.5 mg Miscellaneous (Zosyn Iv Per Pharmacy) 1 [facility] PRN [facility] Stop: 01/23/18 04:59 Pantoprazole Sodium (Protonix) 40 mg IVP DAILY [facility] Stop: 01/23/18 08:59 Last Admin: 11/24/17 09:20 Dose: 40 mg General: Alert, No acute distress HEENT: Atraumatic, PERRLA, EOMI Neck: Supple, no JVD Cardiovascular: Regular rate, Normal S1, Normal S2 Lungs: Other (rales) Abdomen: Bowel sounds, Soft Extremities: no Clubbing, no Cyanosis, no Edema Neurological: Normal gait, Normal speech Assessment/Plan - Problem List Patient Problems: All Active Problems ALTERED MENTAL STATUS WITH OLD WOUNDS (Acute) - Assessment Assessment: Current Active Problems Problem Status Onset ALTERED MENTAL STATUS WITH OLD WOUNDS Acute ALOC ETOH abuse leukoctosis WBC 16K anemia hb 8.9 possible sepsis aspiration PNA elevated BNP hypotensive hepatic encephalopathy - Plan Plan: will order zosyn per pharmacy repeat CBC,CMP,lactic acid, BNP this AM chest xray d5NS swallow eval repeat ETOH level this AM CBC add lactulose add flagyl IV
[2017-11-25 06:22] LABS: % BASOPHILS 0.3 % (0.0-2.0); % MONOCYTES 6.4 % (2.0-10.0); % NEUTROPHILS 70.3 % (40.0-80.0); EOSINOPHILE ABSOLUTE 0.7 Th/cmm (0.1-0.4); HEMATOCRIT 25.4 % (41.0-60); HEMOGLOBIN 8.2 gm/dL (12-16); LYMPHOCYTE ABSOLUTE 1.3 Th/cmm (1.5-3.0); MEAN CELL VOLUME 76.3 fl (80-99); MEAN CORPUSCULAR HEMOGLOBIN 24.7 pg (26.0-30.0); MEAN CORPUSCULAR HGB CONC 32.4 pg (28.0-36.0); MEAN PLATELET VOLUME 7.6 fl; MONOCYTE ABSOLUTE 0.6 Th/cmm (0.3-1.0); NEUTROPHILE ABSOLUTE 6.2 Th/cmm (1.8-8.0); PLATELET COUNT 406 Th/cmm (150-400); RED BLOOD COUNT 3.33 Mil/cmm (4.30-5.70); WHITE BLOOD COUNT 8.8 Th/cmm (4.8-10.8)
[2017-11-25] MEDS: Lactulose 10 Gm/15 mL 30mL UDC PO SCH (09:30)
[2017-11-25] MEDS: Multivitamin Inj 10 ML, Thiamine HCL 100 MG, Magnesium Sulfate 2 GM, Folic Acid 1 MG in... IV SCH (10:00)
[2017-11-25] MEDS: Venelex 60gm Tube TP SCH (12:00)
[2017-11-25] MEDS ORDERED: metroNIDAZOLE 500mg/NS 100mL 500 MG/100 ML BAG IV SCH (13:00)
--- NOTE | 2017-11-25 23:28 | Consultation ---
DATE OF CONSULTATION: 11/25/2017 NEUROLOGY CONSULT HISTORY OF PRESENT ILLNESS: The patient is a 62-year-old, found unresponsive in public transport brought here to [facility]. Initially, the patient is unresponsive, confused. Now, he is more awake, alert, and wants to eat. He is talking, but still confused. PAST MEDICAL HISTORY: Hypertension, hyperlipidemia, and question of dementia. MEDICATIONS: As per reconciliation. REVIEW OF SYSTEMS: Lesion over the left side of the eye, needs surgery. The patient is awake and alert. No marked chest pain. No abdominal pain. PHYSICAL EXAMINATION: VITAL SIGNS: Temperature 97.8, blood pressure 110/64, and pulse is 76. NECK: Supple, no bruits. HEART: Sounds S1 and S2. LUNGS: Clear. NEUROLOGIC: The patient is awake. He gives me his name and his age, but he does not know what day, what month or year. He did not even tell me where he lives. CRANIAL: Pupils react to light. Full eye movement, no nystagmus. No facial weakness. MOTOR: He will lift both arms up. Lift both legs up. Reflexes 1+ to 2. INVESTIGATIONS: CT scan of the head, there is some air fluid in the paranasal sinuses, could be posttraumatic. I will recommend ENT evaluation. There is question of possible nondisplaced fracture. The head shows no intracranial bleed. Cervical spine CT is limited because of movement. ASSESSMENT: 1. Encephalopathy. 2. Alcohol abuse. 3. Possible pneumonia. 4. Dementia. 5. Hypertension. 6. Hyperlipidemia. PLAN: Continue present treatment. Check labs. Give B1. JOB# [id number]
--- NOTE | 2017-11-25 23:43 | Infectious Disease Prog Note ---
Infectious Disease Subjective - Review of Systems Service Date: 11/25/17 Subjective: Still aggressive, no fever.ON THE VENTILATOR, NO FEVER. Infectious Disease Objective - Results Result Diagrams: 11/25/17 04:45 11/25/17 04:45 Recent Labs: Laboratory Last Values WBC 8.8 Th/cmm (4.8-10.8) 11/25/17 04:45 RBC 3.33 Mil/cmm (4.30-5.70) L 11/25/17 04:45 Hgb 8.2 gm/dL (12-16) L 11/25/17 04:45 Hct 25.4 % (41.0-60) L 11/25/17 04:45 MCV 76.3 fl (80-99) L 11/25/17 04:45 MCH 24.7 pg (26.0-30.0) L 11/25/17 04:45 MCHC Differential 32.4 pg (28.0-36.0) 11/25/17 04:45 RDW 16.0 % (11.5-20.0) 11/25/17 04:45 Plt Count 406 Th/cmm (150-400) H 11/25/17 04:45 MPV 7.6 fl 11/25/17 04:45 Add Manual Diff YES 11/23/17 19:05 Neutrophils % 70.3 % (40.0-80.0) 11/25/17 04:45 Band Neutrophils % 3 % (0-10) 11/23/17 19:05 Lymphocytes % 15.0 % (20.0-50.0) L 11/25/17 04:45 Monocytes % 6.4 % (2.0-10.0) 11/25/17 04:45 Eosinophils % 8.0 % (0.0-5.0) H 11/25/17 04:45 Basophils % 0.3 % (0.0-2.0) 11/25/17 04:45 Neutrophils (Manual) 60 % (40-80) 11/23/17 19:05 Lymphocytes 29 % (20-50) 11/23/17 19:05 Monocytes 5 % (2-10) 11/23/17 19:05 Eosinophils 3 % (0-5) 11/23/17 19:05 Microcytosis 1+ 11/23/17 19:05 PT 11.3 SECONDS (9.5-11.5) 11/23/17 19:05 INR 1.09 (0.5-1.4) 11/23/17 19:05 Sodium 134 mEq/L (136-145) L 11/25/17 04:45 Potassium 3.7 mEq/L (3.5-5.1) 11/25/17 04:45 Chloride 108 mEq/L (98-107) H 11/25/17 04:45 Carbon Dioxide 23.0 mEq/L (21.0-31.0) 11/25/17 04:45 Anion Gap 6.7 (7.0-16.0) L 11/25/17 04:45 BUN 11 mg/dL (7-25) 11/25/17 04:45 Creatinine 0.8 mg/dL (0.7-1.3) 11/25/17 04:45 Est GFR ( Amer) > 60.0 ml/min (>90) 11/25/17 04:45 Est GFR (Non-Af Amer) > 60.0 ml/min 11/25/17 04:45 BUN/Creatinine Ratio 13.8 11/25/17 04:45 Glucose 104 mg/dL (70-105) 11/25/17 04:45 POC Glucose 84 MG/DL (70 - 105) 11/24/17 00:22 Whole Bld Lactic Acid 1.72 mmol/L (0.60-1.99) 11/24/17 05:00 Calcium 8.1 mg/dL (8.6-10.3) L 11/25/17 04:45 Total Bilirubin 0.4 mg/dL (0.3-1.0) 11/25/17 04:45 AST 10 U/L (13-39) L 11/25/17 04:45 ALT 6 U/L (7-52) L 11/25/17 04:45 Alkaline Phosphatase 43 U/L (34-104) 11/25/17 04:45 Ammonia 63 umol/L (16-53) H 11/24/17 10:45 Creatine Kinase 113 U/L (30-223) 11/23/17 19:05 Troponin I < 0.01 ng/mL (0.01-0.05) L 11/23/17 19:05 B-Natriuretic Peptide 848.0 pg/mL (5.0-100.0) H 11/25/17 04:45 Total Protein 6.9 gm/dL (6.0-8.3) 11/25/17 04:45 Albumin 2.5 gm/dL (4.2-5.5) L 11/25/17 04:45 Globulin 4.4 gm/dL 11/25/17 04:45 Albumin/Globulin Ratio 0.6 (1.0-1.8) L 11/25/17 04:45 Triglycerides 68 mg/dL (<150) 11/23/17 19:05 Cholesterol 147 mg/dL (<200) 11/23/17 19:05 LDL Cholesterol Direct 98 mg/dL (75-193) 11/23/17 19:05 HDL Cholesterol 36 mg/dL (23-92) 11/23/17 19:05 Urine Opiates Screen NEGATIVE (NEGATIVE) 11/24/17 15:00 Urine Methadone Screen NEGATIVE (NEGATIVE) 11/24/17 15:00 Ur Barbiturates Screen NEGATIVE (NEGATIVE) 11/24/17 15:00 Ur Tricyclics Screen NEGATIVE (NEGATIVE) 11/24/17 15:00 Ur Phencyclidine Scrn NEGATIVE (NEGATIVE) 11/24/17 15:00 Amphetamines Screen NEGATIVE (NEGATIVE) 11/24/17 15:00 U Methamphetamines Scrn NEGATIVE (NEGATIVE) 11/24/17 15:00 U Benzodiazepines Scrn POSITIVE (NEGATIVE) H 11/24/17 15:00 U Cocaine Metab Screen NEGATIVE (NEGATIVE) 11/24/17 15:00 U Cannabinoids Screen NEGATIVE (NEGATIVE) 11/24/17 15:00 Ethyl Alcohol < 10 mg/dL (0-10) 11/25/17 04:45 - Physical Exam Vitals and I&O: Vital Signs Temp 99 F 11/25/17 16:00 Pulse 68 11/25/17 19:37 Resp 20 11/25/17 19:37 BP 96/63 11/25/17 19:00 Pulse Ox 98 11/25/17 22:00 Intake & Output 11/25/17 11/25/17 11/26/17 06:59 18:59 06:59 Intake Total 100 600 Output Total 700 800 Balance -600 -200 Weight (lbs) 58.876 kg 58.513 kg Intake: Intake, IV Amount 100 Piperacillin Sodium/ 100 Tazobact 3.375 gm In Dextrose 5% 50 ml @ 100 mls/hr IV Q6HR [facility] Rx#: [id number] Oral 600 Output: Urine 700 800 Other: # Voids 3 # Bowel Movements 0 0 Weight Source Bedscale Bedscale Active Medications: Current Medications [employer] Oil/[place] Balsam/Trypsin (Venelex) 1 appl TP DAILY [facility] Stop: 01/24/18 08:59 Last Admin: 11/25/17 12:00 Dose: 1 appl Chlordiazepoxide (Librium) 5 mg PO DAILY [facility]; Protocol Stop: 01/24/18 18:29 Multivitamins/Minerals 10 ml/Thiamine HCl 100 mg/ Magnesium Sulfate 2 gm/ Folic Acid 1 mg / Sodium Chloride 1,015.2 mls @ 100 mls/hr IV Q24H [facility] Stop: 01/23/18 05:59 Last Admin: 11/25/17 10:00 Dose: 100 mls/hr Piperacillin Sod/Tazobactam (Sod 3.375 gm/ Dextrose) 50 mls @ 100 mls/hr IV Q6HR [facility] Stop: 01/23/18 05:59 Last Admin: 11/25/17 13:00 Dose: 100 mls/hr Dextrose/Sodium Chloride (D5-0.9%Ns) 1,000 mls @ 75 mls/hr IV .[id number] [facility] Stop: 01/23/18 05:59 Lactulose (Cephulac) 30 gm PO DAILY [facility] Stop: 01/24/18 08:59 Last Admin: 11/25/17 09:30 Dose: 30 gm Lorazepam (Ativan) 0.5 mg IVP Q4HR PRN; Protocol PRN Reason: Agitation Stop: 01/23/18 05:03 Last Admin: 11/25/17 10:30 Dose: 0.5 mg Lorazepam (Ativan) 1 mg IVP Q4HR PRN; Protocol PRN Reason: Agitation Stop: 01/24/18 11:37 Miscellaneous (Zosyn Iv Per Pharmacy) 1 [facility] PRN [facility] Stop: 01/23/18 04:59 Pantoprazole Sodium (Protonix) 40 mg IVP DAILY [facility] Stop: 01/23/18 08:59 Last Admin: 11/25/17 09:30 Dose: 40 mg General: no acute distress, cachectic HEENT: atraumatic, normocephalic, PERRLA, EOMI, moist mucous membrane Neck: supple, no thyromegaly, no lymphadenopathy Cardiovascular: S1S2, regular Lungs: clear to auscultation bilaterally, clear to percussion Abdomen: soft, no tender, no distended, no mass Extremities: no cyanosis, no clubbing, no edema Neurological: awake, alert, other (confused.) Skin: intact Infectious Disease Assmt/Plan - Problem List Patient Problems: All Active Problems ALTERED MENTAL STATUS WITH OLD WOUNDS (Acute) - Assessment Assessment: 1. Altered mental status due to alcohol abuse. 2. Leukocytosis or sepsis versus secondary aspiration pneumonia. 3. Laceration wound on left eyebrow/face. 4. Alcohol abuse. - Plan Plan: Continue Zosyn Nutritional Asmnt/Malnutr-PDOC - Dietary Evaluation Malnutrition Findings (Please click <Entered> for more info): Nutritional Asmnt/Malnutrition Start: 11/25/17 17: 20 Text: Status: Complete Freq: Protocol: Document 11/25/17 17:20 [facility] (Rec: 11/25/17 17:36 [email or web address]) Nutritional Asmnt/Malnutrition Patient General Information Nutritional Screening Moderate Risk Consult Diagnosis ALOC, possible PNA aspiration, ETOH Pertinent Medical Hx/Surgical Hx HTN, dyslipidemia, dementia, Subjective Information Consult received for multiple wounds. Pt seen lying in bed at time of visit, awake and alert, on banana bag. Oral diet started from lunch today. Pt stated he was hungry. Per EMR, pt consumed 100% of lunch . Current Diet Order/ Nutrition Support [facility] soft ground Pertinent Medications D5-0.9%ns, banana bag, protonix, piperacillin Pertinent Labs 11/25 na 134, Cl 108, glucose 104, Ca 8.1, alb 2.5 Nutritional Hx/Data Height 1.68 m Height (Calculated Centimeters) 167.6 Current Weight (lbs) 58.967 kg Weight (Calculated Kilograms) 59.0 Weight (Calculated Grams) 32061.0 [place] Body Weight 142 Body Mass Index (BMI) 20.9 Weight Status Approriate GI Symptoms GI Symptoms None Last BM none Difficult in: None Skin Integrity/Comment: scars to left shoulder, left forehead and left foot skin tear to left upper back Current %PO Good (75-100%) Estimated Nutritional Goals BEE in Kcals: Using Current wt Calories/Kcals/Kg 27-32 Kcals Calculated [id number] Protein: Using Current wt Protein g/k-1.2 Protein Calculated 59-71 Fluid: ml 1593-1888ml (1ml/kcal) Nutritional Problem 1. Problem Problem altered nutrition related labs Etiology electrolytes imbalance Signs/Symptoms: na 134, Cl 108, Ca 8.1 Malnutrition Alert Is there a minimum of two criteria No selected? Query Text:Check all the applicable criteria. A minimum of two criteria are recommended for diagnosis of either severe or non-severe malnutrition. Malnutrition Related to Morbid Obesity Malnutrition related to morbid obesity No Intervention/Recommendation Comments 1. Continue with current diet as ordered. 2. Monitor PO intake, wt, labs and skin integrity 3. F/U as moderate risk in 3-5 days, 11/28-11/30 Expected Outcomes/Goals Expected Outcomes/Goals 1. PO intake to meet at least 75% of nutritional needs. 2. Wt stability, skin to remain intact, labs to approach WNL.
--- NOTE | 2017-11-26 05:14 | General Progress Note ---
Subjective - Review of Systems Service Date: 11/26/17 Subjective: Patient is more awake and alert but confused. Wants to eat. BNP elevated. still hypotensive. possible cardiomyopathy. Objective - Results Result Diagrams: 11/25/17 04:45 11/25/17 04:45 Recent Labs: Laboratory Last Values WBC 8.8 Th/cmm (4.8-10.8) 11/25/17 04:45 RBC 3.33 Mil/cmm (4.30-5.70) L 11/25/17 04:45 Hgb 8.2 gm/dL (12-16) L 11/25/17 04:45 Hct 25.4 % (41.0-60) L 11/25/17 04:45 MCV 76.3 fl (80-99) L 11/25/17 04:45 MCH 24.7 pg (26.0-30.0) L 11/25/17 04:45 MCHC Differential 32.4 pg (28.0-36.0) 11/25/17 04:45 RDW 16.0 % (11.5-20.0) 11/25/17 04:45 Plt Count 406 Th/cmm (150-400) H 11/25/17 04:45 MPV 7.6 fl 11/25/17 04:45 Add Manual Diff YES 11/23/17 19:05 Neutrophils % 70.3 % (40.0-80.0) 11/25/17 04:45 Band Neutrophils % 3 % (0-10) 11/23/17 19:05 Lymphocytes % 15.0 % (20.0-50.0) L 11/25/17 04:45 Monocytes % 6.4 % (2.0-10.0) 11/25/17 04:45 Eosinophils % 8.0 % (0.0-5.0) H 11/25/17 04:45 Basophils % 0.3 % (0.0-2.0) 11/25/17 04:45 Neutrophils (Manual) 60 % (40-80) 11/23/17 19:05 Lymphocytes 29 % (20-50) 11/23/17 19:05 Monocytes 5 % (2-10) 11/23/17 19:05 Eosinophils 3 % (0-5) 11/23/17 19:05 Microcytosis 1+ 11/23/17 19:05 PT 11.3 SECONDS (9.5-11.5) 11/23/17 19:05 INR 1.09 (0.5-1.4) 11/23/17 19:05 Sodium 134 mEq/L (136-145) L 11/25/17 04:45 Potassium 3.7 mEq/L (3.5-5.1) 11/25/17 04:45 Chloride 108 mEq/L (98-107) H 11/25/17 04:45 Carbon Dioxide 23.0 mEq/L (21.0-31.0) 11/25/17 04:45 Anion Gap 6.7 (7.0-16.0) L 11/25/17 04:45 BUN 11 mg/dL (7-25) 11/25/17 04:45 Creatinine 0.8 mg/dL (0.7-1.3) 11/25/17 04:45 Est GFR ( Amer) > 60.0 ml/min (>90) 11/25/17 04:45 Est GFR (Non-Af Amer) > 60.0 ml/min 11/25/17 04:45 BUN/Creatinine Ratio 13.8 11/25/17 04:45 Glucose 104 mg/dL (70-105) 11/25/17 04:45 POC Glucose 84 MG/DL (70 - 105) 11/24/17 00:22 Whole Bld Lactic Acid 1.72 mmol/L (0.60-1.99) 11/24/17 05:00 Calcium 8.1 mg/dL (8.6-10.3) L 11/25/17 04:45 Total Bilirubin 0.4 mg/dL (0.3-1.0) 11/25/17 04:45 AST 10 U/L (13-39) L 11/25/17 04:45 ALT 6 U/L (7-52) L 11/25/17 04:45 Alkaline Phosphatase 43 U/L (34-104) 11/25/17 04:45 Ammonia 63 umol/L (16-53) H 11/24/17 10:45 Creatine Kinase 113 U/L (30-223) 11/23/17 19:05 Troponin I < 0.01 ng/mL (0.01-0.05) L 11/23/17 19:05 B-Natriuretic Peptide 848.0 pg/mL (5.0-100.0) H 11/25/17 04:45 Total Protein 6.9 gm/dL (6.0-8.3) 11/25/17 04:45 Albumin 2.5 gm/dL (4.2-5.5) L 11/25/17 04:45 Globulin 4.4 gm/dL 11/25/17 04:45 Albumin/Globulin Ratio 0.6 (1.0-1.8) L 11/25/17 04:45 Triglycerides 68 mg/dL (<150) 11/23/17 19:05 Cholesterol 147 mg/dL (<200) 11/23/17 19:05 LDL Cholesterol Direct 98 mg/dL (75-193) 11/23/17 19:05 HDL Cholesterol 36 mg/dL (23-92) 11/23/17 19:05 Urine Opiates Screen NEGATIVE (NEGATIVE) 11/24/17 15:00 Urine Methadone Screen NEGATIVE (NEGATIVE) 11/24/17 15:00 Ur Barbiturates Screen NEGATIVE (NEGATIVE) 11/24/17 15:00 Ur Tricyclics Screen NEGATIVE (NEGATIVE) 11/24/17 15:00 Ur Phencyclidine Scrn NEGATIVE (NEGATIVE) 11/24/17 15:00 Amphetamines Screen NEGATIVE (NEGATIVE) 11/24/17 15:00 U Methamphetamines Scrn NEGATIVE (NEGATIVE) 11/24/17 15:00 U Benzodiazepines Scrn POSITIVE (NEGATIVE) H 11/24/17 15:00 U Cocaine Metab Screen NEGATIVE (NEGATIVE) 11/24/17 15:00 U Cannabinoids Screen NEGATIVE (NEGATIVE) 11/24/17 15:00 Ethyl Alcohol < 10 mg/dL (0-10) 11/25/17 04:45 - Physical Exam Vitals and I&O: Vital Signs Temp 97.8 F 11/25/17 23:00 Pulse 52 11/26/17 01:00 Resp 17 11/26/17 01:00 BP 88/51 11/26/17 01:00 Pulse Ox 98 11/26/17 02:00 Intake & Output 11/25/17 11/25/17 11/26/17 06:59 18:59 06:59 Intake Total 100 1715.2 Output Total 700 800 Balance -600 915.2 Weight (lbs) 58.876 kg 58.513 kg Intake: Intake, IV Amount 100 1115.2 Multivitamin Inj 10 ml 1015.2 Thiamine HCL 100 mg Magnesium Sulfate 2 gm Folic Acid 1 mg In Sodium Chloride 0.9% 1,000 ml @ 100 mls/hr IV Q24H [facility] Rx#:[id number] Piperacillin Sodium/ 100 100 Tazobact 3.375 gm In Dextrose 5% 50 ml @ 100 mls/hr IV Q6HR [facility] Rx#: [id number] Oral 600 Output: Urine 700 800 Other: # Voids 3 # Bowel Movements 0 0 Weight Source Bedscale Bedscale Active Medications: Current Medications [place] Oil/[place] Balsam/Trypsin (Venelex) 1 appl TP DAILY [facility] Stop: 01/24/18 08:59 Last Admin: 11/25/17 12:00 Dose: 1 appl Chlordiazepoxide (Librium) 5 mg PO DAILY [facility]; Protocol Stop: 01/24/18 18:29 Last Admin: 11/25/17 23:54 Dose: 5 mg Multivitamins/Minerals 10 ml/Thiamine HCl 100 mg/ Magnesium Sulfate 2 gm/ Folic Acid 1 mg / Sodium Chloride 1,015.2 mls @ 100 mls/hr IV Q24H [facility] Stop: 01/23/18 05:59 Last Infusion: 11/25/17 20:15 Dose: Infused Piperacillin Sod/Tazobactam (Sod 3.375 gm/ Dextrose) 50 mls @ 100 mls/hr IV Q6HR [facility] Stop: 01/23/18 05:59 Last Infusion: 11/26/17 00:28 Dose: Infused Dextrose/Sodium Chloride (D5-0.9%Ns) 1,000 mls @ 75 mls/hr IV .[id number] [facility] Stop: 01/23/18 05:59 Lactulose (Cephulac) 30 gm PO DAILY [facility] Stop: 01/24/18 08:59 Last Admin: 11/25/17 09:30 Dose: 30 gm Lorazepam (Ativan) 0.5 mg IVP Q4HR PRN; Protocol PRN Reason: Agitation Stop: 01/23/18 05:03 Last Admin: 11/25/17 10:30 Dose: 0.5 mg Lorazepam (Ativan) 1 mg IVP Q4HR PRN; Protocol PRN Reason: Agitation Stop: 01/24/18 11:37 Miscellaneous (Zosyn Iv Per Pharmacy) 1 ea MC PRN [facility] Stop: 01/23/18 04:59 Pantoprazole Sodium (Protonix) 40 mg IVP DAILY [facility] Stop: 01/23/18 08:59 Last Admin: 11/25/17 09:30 Dose: 40 mg General: Alert, No acute distress HEENT: Atraumatic, PERRLA, EOMI Neck: Supple, no JVD Cardiovascular: Regular rate, Normal S1, Normal S2 Lungs: Other (rales) Abdomen: Bowel sounds, Soft Extremities: no Clubbing, no Cyanosis, no Edema Neurological: Normal gait, Normal speech Assessment/Plan - Problem List Patient Problems: All Active Problems ALTERED MENTAL STATUS WITH OLD WOUNDS (Acute) - Assessment Assessment: Current Active Problems Problem Status Onset ALTERED MENTAL STATUS WITH OLD WOUNDS Acute ALOC ETOH abuse alcohol withdrawal ... on Librium leukoctosis now resolved anemia hb 8.2 possible sepsis aspiration PNA elevated BNP will order cardiac consult hypotensive hepatic encephalopathy elevated ammonia level ... on lactulose - Plan Plan: will order zosyn per pharmacy repeat CBC,CMP,lactic acid, BNP this AM chest xray d5NS swallow eval repeat ETOH level this AM CBC add lactulose add librium ECHO may transfer to medical floor Nutritional Asmnt/Malnutr-PDOC - Dietary Evaluation Malnutrition Findings (Please click <Entered> for more info): Nutritional Asmnt/Malnutrition Start: 11/25/17 17: 20 Text: Status: Complete Freq: Protocol: Document 11/25/17 17:20 LCDILANG (Rec: 11/25/17 17:36 BAILEY [email or web address]) Nutritional Asmnt/Malnutrition Patient General Information Nutritional Screening Moderate Risk Consult Diagnosis ALOC, possible PNA aspiration, ETOH Pertinent Medical Hx/Surgical Hx HTN, dyslipidemia, dementia, Subjective Information Consult received for multiple wounds. Pt seen lying in bed at time of visit, awake and alert, on banana bag. Oral diet started from lunch today. Pt stated he was hungry. Per EMR, pt consumed 100% of lunch . Current Diet Order/ Nutrition Support [facility] [place] soft [facility] Pertinent Medications D5-0.9%ns, banana bag, protonix, piperacillin Pertinent Labs 11/25 na 134, Cl 108, glucose 104, Ca 8.1, alb 2.5 Nutritional Hx/Data Height 1.68 m Height (Calculated Centimeters) 167.6 Current Weight (lbs) 58.967 kg Weight (Calculated Kilograms) 59.0 Weight (Calculated Grams) 24421.0 [place] Body Weight 142 Body Mass Index (BMI) 20.9 Weight Status Approriate GI Symptoms GI Symptoms None Last BM none Difficult in: None Skin Integrity/Comment: scars to left shoulder, left forehead and left foot skin tear to left upper back Current %PO Good (75-100%) Estimated Nutritional Goals BEE in Kcals: Using Current wt Calories/Kcals/Kg 27-32 Kcals Calculated 6912-1263 Protein: Using Current wt Protein g/k-1.2 Protein Calculated 59-71 Fluid: ml 1593-1888ml (1ml/kcal) Nutritional Problem 1. Problem Problem altered nutrition related labs Etiology electrolytes imbalance Signs/Symptoms: na 134, Cl 108, Ca 8.1 Malnutrition Alert Is there a minimum of two criteria No selected? Query Text:Check all the applicable criteria. A minimum of two criteria are recommended for diagnosis of either severe or non-severe malnutrition. Malnutrition Related to Morbid Obesity Malnutrition related to morbid obesity No Intervention/Recommendation Comments 1. Continue with current diet as ordered. 2. Monitor PO intake, wt, labs and skin integrity 3. F/U as moderate risk in 3-5 days, 11/28-11/30 Expected Outcomes/Goals Expected Outcomes/Goals 1. PO intake to meet at least 75% of nutritional needs. 2. Wt stability, skin to remain intact, labs to approach WNL.
[2017-11-26 05:32] LABS: % BASOPHILS 0.7 % (0.0-2.0); % EOSINOPHILS 6.8 % (0.0-5.0); % LYMPHOCYTES 22.1 % (20.0-50.0); % MONOCYTES 7.2 % (2.0-10.0); % NEUTROPHILS 63.2 % (40.0-80.0); BASOPHILE ABSOLUTE 0.1 Th/cumm (0-0.2); EOSINOPHILE ABSOLUTE 0.5 Th/cmm (0.1-0.4); LYMPHOCYTE ABSOLUTE 1.7 Th/cmm (1.5-3.0); MEAN CELL VOLUME 75.5 fl (80-99); MEAN CORPUSCULAR HEMOGLOBIN 24.6 pg (26.0-30.0); MEAN CORPUSCULAR HGB CONC 32.5 pg (28.0-36.0); MEAN PLATELET VOLUME 7.5 fl; MONOCYTE ABSOLUTE 0.5 Th/cmm (0.3-1.0); NEUTROPHILE ABSOLUTE 4.8 Th/cmm (1.8-8.0); PLATELET COUNT 372 Th/cmm (150-400); RED BLOOD COUNT 3.16 Mil/cmm (4.30-5.70); RED CELL DISTRIBUTION WIDTH 15.8 % (11.5-20.0); WHITE BLOOD COUNT 7.6 Th/cmm (4.8-10.8)
[2017-11-26 05:44] LABS: ANION GAP 7.8 (7.0-16.0); BUN - UREA NITROGEN 9 mg/dL (7-25); CALCIUM SERUM 8.2 mg/dL (8.6-10.3); CHLORIDE 109 mEq/L (98-107); CREATININE - SERUM 0.7 mg/dL (0.7-1.3); GFR AFRICAN-AMERICAN > 60.0 ml/min (>90); GFR NON AFRICAN-AMERICAN > 60.0 ml/min; GLUCOSE 104 mg/dL (70-105); POTASSIUM SERUM 3.8 mEq/L (3.5-5.1); SODIUM SERUM 135 mEq/L (136-145)
[2017-11-26 06:38] LABS: HEMATOCRIT 23.9 % (41.0-60); HEMOGLOBIN 7.8 gm/dL (12-16)
[2017-11-26] MEDS ORDERED: Multivitamin Inj 10 ML, Thiamine HCL 100 MG, Magnesium Sulfate 2 GM, Folic Acid 1 MG in... IV SCH (09:00)
--- NOTE | 2017-11-26 09:10 | Diagnostic Imaging Report ---
Exam: Portable chest x-ray HISTORY: Chest congestion. Findings: Portable upright examination of the chest at 0734 hours reviewed and compared to prior study of 11/24/2017. The study again demonstrates mild scoliotic convexity of thoracic spine to the right. No active pulmonic infiltrates or effusions are noted. Bony thorax is intact. IMPRESSION: No acute disease.
[2017-11-26] MEDS: Venelex 60gm Tube TP SCH (09:30)
[2017-11-26] MEDS: Lactulose 10 Gm/15 mL 30mL UDC PO SCH (09:30)
[2017-11-26] MEDS: D5-0.9%NS 1,000 ML IV SCH (12:07)
[2017-11-27] MEDS: D5-0.9%NS 1,000 ML IV SCH ×2 (04:21→23:18)
--- NOTE | 2017-11-27 05:32 | General Progress Note ---
Subjective - Review of Systems Service Date: 11/27/17 Subjective: Patient is more awake and alert afebrile. no new changes. bp better Objective - Results Result Diagrams: 11/26/17 04:50 11/26/17 04:50 Recent Labs: Laboratory Last Values WBC 7.6 Th/cmm (4.8-10.8) 11/26/17 04:50 RBC 3.16 Mil/cmm (4.30-5.70) L 11/26/17 04:50 Hgb 7.8 gm/dL (12-16) L* 11/26/17 04:50 Hct 23.9 % (41.0-60) L 11/26/17 04:50 MCV 75.5 fl (80-99) L 11/26/17 04:50 MCH 24.6 pg (26.0-30.0) L 11/26/17 04:50 MCHC Differential 32.5 pg (28.0-36.0) 11/26/17 04:50 RDW 15.8 % (11.5-20.0) 11/26/17 04:50 Plt Count 372 Th/cmm (150-400) 11/26/17 04:50 MPV 7.5 fl 11/26/17 04:50 Add Manual Diff YES 11/23/17 19:05 Neutrophils % 63.2 % (40.0-80.0) 11/26/17 04:50 Band Neutrophils % 3 % (0-10) 11/23/17 19:05 Lymphocytes % 22.1 % (20.0-50.0) 11/26/17 04:50 Monocytes % 7.2 % (2.0-10.0) 11/26/17 04:50 Eosinophils % 6.8 % (0.0-5.0) H 11/26/17 04:50 Basophils % 0.7 % (0.0-2.0) 11/26/17 04:50 Neutrophils (Manual) 60 % (40-80) 11/23/17 19:05 Lymphocytes 29 % (20-50) 11/23/17 19:05 Monocytes 5 % (2-10) 11/23/17 19:05 Eosinophils 3 % (0-5) 11/23/17 19:05 Microcytosis 1+ 11/23/17 19:05 ESR 127 mm/hr (0-20) H 11/26/17 04:50 PT 11.3 SECONDS (9.5-11.5) 11/23/17 19:05 INR 1.09 (0.5-1.4) 11/23/17 19:05 Sodium 135 mEq/L (136-145) L 11/26/17 04:50 Potassium 3.8 mEq/L (3.5-5.1) 11/26/17 04:50 Chloride 109 mEq/L (98-107) H 11/26/17 04:50 Carbon Dioxide 22.0 mEq/L (21.0-31.0) 11/26/17 04:50 Anion Gap 7.8 (7.0-16.0) 11/26/17 04:50 BUN 9 mg/dL (7-25) 11/26/17 04:50 Creatinine 0.7 mg/dL (0.7-1.3) 11/26/17 04:50 Est GFR ( Amer) > 60.0 ml/min (>90) 11/26/17 04:50 Est GFR (Non-Af Amer) > 60.0 ml/min 11/26/17 04:50 BUN/Creatinine Ratio 12.9 11/26/17 04:50 Glucose 104 mg/dL (70-105) 11/26/17 04:50 POC Glucose 84 MG/DL (70 - 105) 11/24/17 00:22 Whole Bld Lactic Acid 1.72 mmol/L (0.60-1.99) 11/24/17 05:00 Calcium 8.2 mg/dL (8.6-10.3) L 11/26/17 04:50 Total Bilirubin 0.4 mg/dL (0.3-1.0) 11/25/17 04:45 AST 10 U/L (13-39) L 11/25/17 04:45 ALT 6 U/L (7-52) L 11/25/17 04:45 Alkaline Phosphatase 43 U/L (34-104) 11/25/17 04:45 Ammonia 47 umol/L (16-53) 11/26/17 06:25 Creatine Kinase 113 U/L (30-223) 11/23/17 19:05 Troponin I < 0.01 ng/mL (0.01-0.05) L 11/23/17 19:05 B-Natriuretic Peptide 848.0 pg/mL (5.0-100.0) H 11/25/17 04:45 Total Protein 6.9 gm/dL (6.0-8.3) 11/25/17 04:45 Albumin 2.5 gm/dL (4.2-5.5) L 11/25/17 04:45 Globulin 4.4 gm/dL 11/25/17 04:45 Albumin/Globulin Ratio 0.6 (1.0-1.8) L 11/25/17 04:45 Triglycerides 68 mg/dL (<150) 11/23/17 19:05 Cholesterol 147 mg/dL (<200) 11/23/17 19:05 LDL Cholesterol Direct 98 mg/dL (75-193) 11/23/17 19:05 HDL Cholesterol 36 mg/dL (23-92) 11/23/17 19:05 TSH 0.97 uIU/ml (0.34-5.60) 11/26/17 04:50 Urine Opiates Screen NEGATIVE (NEGATIVE) 11/24/17 15:00 Urine Methadone Screen NEGATIVE (NEGATIVE) 11/24/17 15:00 Ur Barbiturates Screen NEGATIVE (NEGATIVE) 11/24/17 15:00 Ur Tricyclics Screen NEGATIVE (NEGATIVE) 11/24/17 15:00 Ur Phencyclidine Scrn NEGATIVE (NEGATIVE) 11/24/17 15:00 Amphetamines Screen NEGATIVE (NEGATIVE) 11/24/17 15:00 U Methamphetamines Scrn NEGATIVE (NEGATIVE) 11/24/17 15:00 U Benzodiazepines Scrn POSITIVE (NEGATIVE) H 11/24/17 15:00 U Cocaine Metab Screen NEGATIVE (NEGATIVE) 11/24/17 15:00 U Cannabinoids Screen NEGATIVE (NEGATIVE) 11/24/17 15:00 Ethyl Alcohol < 10 mg/dL (0-10) 11/25/17 04:45 Blood Type A POSITIVE 11/26/17 11:45 - Physical Exam Vitals and I&O: Vital Signs Temp 98.9 F 11/27/17 04:05 Pulse 57 11/27/17 04:05 Resp 16 11/27/17 04:05 BP 104/66 11/27/17 04:05 Pulse Ox 97 11/27/17 04:05 Intake & Output 11/26/17 11/26/17 11/27/17 06:59 18:59 06:59 Intake Total 2065.2 1250 1220 Output Total 800 450 Balance 1265.2 1250 770 Weight (lbs) 58.513 kg 63.82 kg 63.594 kg Intake: Intake, IV Amount 1165.2 50 1100 D5-0.9%Ns 1,000 ml @ 75 1000 mls/hr IV .[id number] [facility] Rx #:[id number] Multivitamin Inj 10 ml 1015.2 Thiamine HCL 100 mg Magnesium Sulfate 2 gm Folic Acid 1 mg In Sodium Chloride 0.9% 1,000 ml @ 100 mls/hr IV Q24H [facility] Rx#:[id number] Piperacillin Sodium/ 150 50 100 Tazobact 3.375 gm In Dextrose 5% 50 ml @ 100 mls/hr IV Q6HR [facility] Rx#: [id number] Oral 900 1200 120 Output: Urine 800 450 Other: # Voids 3 4 2 # Bowel Movements 0 4 0 Stool Characteristics Liquid Liquid Brown Brown Green Weight Source Bedscale Bedscale Bedscale Active Medications: Current Medications [place] Oil/[place] Balsam/Trypsin (Venelex) 1 appl TP DAILY [facility] Stop: 01/24/18 08:59 Last Admin: 11/26/17 09:30 Dose: 1 appl Chlordiazepoxide (Librium) 5 mg PO DAILY [facility]; Protocol Stop: 01/24/18 18:29 Last Admin: 11/26/17 09:30 Dose: 5 mg Piperacillin Sod/Tazobactam (Sod 3.375 gm/ Dextrose) 50 mls @ 100 mls/hr IV Q6HR [facility] Stop: 01/23/18 05:59 Last Admin: 11/27/17 05:17 Dose: 100 mls/hr Dextrose/Sodium Chloride (D5-0.9%Ns) 1,000 mls @ 75 mls/hr IV .[id number] [facility] Stop: 01/23/18 05:59 Last Admin: 11/27/17 04:21 Dose: 75 mls/hr Lactulose (Cephulac) 30 gm PO DAILY [facility] Stop: 01/24/18 08:59 Last Admin: 11/26/17 09:30 Dose: 30 gm Lorazepam (Ativan) 0.5 mg IVP Q4HR PRN; Protocol PRN Reason: Agitation Stop: 01/23/18 05:03 Last Admin: 11/25/17 10:30 Dose: 0.5 mg Lorazepam (Ativan) 1 mg IVP Q4HR PRN; Protocol PRN Reason: Agitation Stop: 01/24/18 11:37 Miscellaneous (Zosyn Iv Per Pharmacy) 1 ea MC PRN [facility] Stop: 01/23/18 04:59 Pantoprazole Sodium (Protonix) 40 mg IVP DAILY [facility] Stop: 01/23/18 08:59 Last Admin: 11/26/17 09:30 Dose: 40 mg General: Alert, No acute distress HEENT: Atraumatic, PERRLA, EOMI Neck: Supple, no JVD Cardiovascular: Regular rate, Normal S1, Normal S2 Lungs: Other (rales) Abdomen: Bowel sounds, Soft Extremities: no Clubbing, no Cyanosis, no Edema Neurological: Normal gait, Normal speech Assessment/Plan - Problem List Patient Problems: All Active Problems ALTERED MENTAL STATUS WITH OLD WOUNDS (Acute) - Assessment Assessment: Current Active Problems Problem Status Onset ALTERED MENTAL STATUS WITH OLD WOUNDS Acute ALOC ETOH abuse alcohol withdrawal ... on Librium leukoctosis now resolved anemia hb 8.2 possible sepsis aspiration PNA elevated BNP will order cardiac consult hypotensive improved hepatic encephalopathy elevated ammonia level ... on lactulose - Plan Plan: will order zosyn per pharmacy repeat CBC,CMP,lactic acid, BNP this AM chest xray d5NS swallow eval repeat ETOH level this AM CBC add lactulose add librium ECHO may transfer to medical floor Nutritional Asmnt/Malnutr-PDOC - Dietary Evaluation Malnutrition Findings (Please click <Entered> for more info): Nutritional Asmnt/Malnutrition Start: 11/25/17 17: 20 Text: Status: Complete Freq: Protocol: Document 11/25/17 17:20 LCHENG (Rec: 11/25/17 17:36 LCDILANG [email or web address]) Nutritional Asmnt/Malnutrition Patient General Information Nutritional Screening Moderate Risk Consult Diagnosis ALOC, possible PNA aspiration, ETOH Pertinent Medical Hx/Surgical Hx HTN, dyslipidemia, dementia, Subjective Information Consult received for multiple wounds. Pt seen lying in bed at time of visit, awake and alert, on banana bag. Oral diet started from lunch today. Pt stated he was hungry. Per EMR, pt consumed 100% of lunch . Current Diet Order/ Nutrition Support [facility] soft ground Pertinent Medications D5-0.9%ns, banana bag, protonix, piperacillin Pertinent Labs 11/25 na 134, Cl 108, glucose 104, Ca 8.1, alb 2.5 Nutritional Hx/Data Height 1.68 m Height (Calculated Centimeters) 167.6 Current Weight (lbs) 58.967 kg Weight (Calculated Kilograms) 59.0 Weight (Calculated Grams) 33638.0 [place] Body Weight 142 Body Mass Index (BMI) 20.9 Weight Status Approriate GI Symptoms GI Symptoms None Last BM none Difficult in: None Skin Integrity/Comment: scars to left shoulder, left forehead and left foot skin tear to left upper back Current %PO Good (75-100%) Estimated Nutritional Goals BEE in Kcals: Using Current wt Calories/Kcals/Kg 27-32 Kcals Calculated 9725-2057 Protein: Using Current wt Protein g/k-1.2 Protein Calculated 59-71 Fluid: ml 1593-1888ml (1ml/kcal) Nutritional Problem 1. Problem Problem altered nutrition related labs Etiology electrolytes imbalance Signs/Symptoms: na 134, Cl 108, Ca 8.1 Malnutrition Alert Is there a minimum of two criteria No selected? Query Text:Check all the applicable criteria. A minimum of two criteria are recommended for diagnosis of either severe or non-severe malnutrition. Malnutrition Related to Morbid Obesity Malnutrition related to morbid obesity No Intervention/Recommendation Comments 1. Continue with current diet as ordered. 2. Monitor PO intake, wt, labs and skin integrity 3. F/U as moderate risk in 3-5 days, 11/28-11/30 Expected Outcomes/Goals Expected Outcomes/Goals 1. PO intake to meet at least 75% of nutritional needs. 2. Wt stability, skin to remain intact, labs to approach WNL.
[2017-11-27 06:48] LABS: RED CELL DISTRIBUTION WIDTH 16.1 % (11.5-20.0)
[2017-11-27 06:58] LABS: HEMATOCRIT 25.1 % (41.0-60); HEMOGLOBIN 8.2 gm/dL (12-16); MEAN CELL VOLUME 74.9 fl (80-99); MEAN CORPUSCULAR HEMOGLOBIN 24.6 pg (26.0-30.0); MEAN CORPUSCULAR HGB CONC 32.8 pg (28.0-36.0); MEAN PLATELET VOLUME 7.7 fl; PLATELET COUNT 421 Th/cmm (150-400); RED BLOOD COUNT 3.34 Mil/cmm (4.30-5.70); WHITE BLOOD COUNT 6.7 Th/cmm (4.8-10.8)
[2017-11-27 07:06] LABS: ALB/GLOB RATIO 0.6 (1.0-1.8); ALBUMIN 2.9 gm/dL (4.2-5.5); ALKALINE PHOSPHATASE 45 U/L (34-104); ANION GAP 9.6 (7.0-16.0); BILIRUBIN,TOTAL 0.2 mg/dL (0.3-1.0); BUN - UREA NITROGEN 8 mg/dL (7-25); CALCIUM SERUM 8.7 mg/dL (8.6-10.3); CARBON DIOXIDE 22.1 mEq/L (21.0-31.0); CHLORIDE 108 mEq/L (98-107); CREATININE - SERUM 0.8 mg/dL (0.7-1.3); GFR AFRICAN-AMERICAN > 60.0 ml/min (>90); GFR NON AFRICAN-AMERICAN > 60.0 ml/min; GLUCOSE 104 mg/dL (70-105); POTASSIUM SERUM 3.7 mEq/L (3.5-5.1); SGOT 10 U/L (13-39); SGPT/ALT 6 U/L (7-52); SODIUM SERUM 136 mEq/L (136-145); TOTAL PROTEIN,SERUM 7.7 gm/dL (6.0-8.3)
[2017-11-27 07:56] LABS: BAND NEUTROPHILE 0 % (0-10); BASOPHIL 0 % (0-3); EOSINOPHIL 8 % (0-5); LYMPHOCYTE 23 % (20-50); MONOCYTE 4 % (2-10); NEUTROPHILS 65 % (40-80)
[2017-11-27] MEDS ORDERED: Multivitamin Inj 10 ML, Thiamine HCL 100 MG, Magnesium Sulfate 2 GM, Folic Acid 1 MG in... IV SCH (08:00)
[2017-11-27] MEDS: Lactulose 10 Gm/15 mL 30mL UDC PO SCH (10:06)
[2017-11-27] MEDS: Venelex 60gm Tube TP SCH (10:30)
--- NOTE | 2017-11-28 08:12 | General Progress Note ---
Subjective - Review of Systems Service Date: 11/28/17 Subjective: Patient is more awake and alert afebrile. no new changes. bp better Objective - Results Result Diagrams: 11/27/17 06:20 11/27/17 06:20 Recent Labs: Laboratory Last Values WBC 6.7 Th/cmm (4.8-10.8) 11/27/17 06:20 RBC 3.34 Mil/cmm (4.30-5.70) L 11/27/17 06:20 Hgb 8.2 gm/dL (12-16) L 11/27/17 06:20 Hct 25.1 % (41.0-60) L 11/27/17 06:20 MCV 74.9 fl (80-99) L 11/27/17 06:20 MCH 24.6 pg (26.0-30.0) L 11/27/17 06:20 MCHC Differential 32.8 pg (28.0-36.0) 11/27/17 06:20 RDW 16.1 % (11.5-20.0) 11/27/17 06:20 Plt Count 421 Th/cmm (150-400) H 11/27/17 06:20 MPV 7.7 fl 11/27/17 06:20 Add Manual Diff YES 11/27/17 06:20 Neutrophils % 63.2 % (40.0-80.0) 11/26/17 04:50 Band Neutrophils % 0 % (0-10) 11/27/17 06:20 Lymphocytes % 22.1 % (20.0-50.0) 11/26/17 04:50 Monocytes % 7.2 % (2.0-10.0) 11/26/17 04:50 Eosinophils % 6.8 % (0.0-5.0) H 11/26/17 04:50 Basophils % 0.7 % (0.0-2.0) 11/26/17 04:50 Neutrophils (Manual) 65 % (40-80) 11/27/17 06:20 Lymphocytes 23 % (20-50) 11/27/17 06:20 Monocytes 4 % (2-10) 11/27/17 06:20 Eosinophils 8 % (0-5) H 11/27/17 06:20 Basophils 0 % (0-3) 11/27/17 06:20 Microcytosis 2+ 11/27/17 06:20 ESR 127 mm/hr (0-20) H 11/26/17 04:50 PT 11.3 SECONDS (9.5-11.5) 11/23/17 19:05 INR 1.09 (0.5-1.4) 11/23/17 19:05 Sodium 136 mEq/L (136-145) 11/27/17 06:20 Potassium 3.7 mEq/L (3.5-5.1) 11/27/17 06:20 Chloride 108 mEq/L (98-107) H 11/27/17 06:20 Carbon Dioxide 22.1 mEq/L (21.0-31.0) 11/27/17 06:20 Anion Gap 9.6 (7.0-16.0) 11/27/17 06:20 BUN 8 mg/dL (7-25) 11/27/17 06:20 Creatinine 0.8 mg/dL (0.7-1.3) 11/27/17 06:20 Est GFR ( Amer) > 60.0 ml/min (>90) 11/27/17 06:20 Est GFR (Non-Af Amer) > 60.0 ml/min 11/27/17 06:20 BUN/Creatinine Ratio 10.0 11/27/17 06:20 Glucose 104 mg/dL (70-105) 11/27/17 06:20 POC Glucose 84 MG/DL (70 - 105) 11/24/17 00:22 Whole Bld Lactic Acid 1.72 mmol/L (0.60-1.99) 11/24/17 05:00 Calcium 8.7 mg/dL (8.6-10.3) 11/27/17 06:20 Total Bilirubin 0.2 mg/dL (0.3-1.0) L 11/27/17 06:20 AST 10 U/L (13-39) L 11/27/17 06:20 ALT 6 U/L (7-52) L 11/27/17 06:20 Alkaline Phosphatase 45 U/L (34-104) 11/27/17 06:20 Ammonia 47 umol/L (16-53) 11/26/17 06:25 Creatine Kinase 113 U/L (30-223) 11/23/17 19:05 Troponin I < 0.01 ng/mL (0.01-0.05) L 11/23/17 19:05 B-Natriuretic Peptide 848.0 pg/mL (5.0-100.0) H 11/25/17 04:45 Total Protein 7.7 gm/dL (6.0-8.3) 11/27/17 06:20 Albumin 2.9 gm/dL (4.2-5.5) L 11/27/17 06:20 Globulin 4.8 gm/dL 11/27/17 06:20 Albumin/Globulin Ratio 0.6 (1.0-1.8) L 11/27/17 06:20 Triglycerides 68 mg/dL (<150) 11/23/17 19:05 Cholesterol 147 mg/dL (<200) 11/23/17 19:05 LDL Cholesterol Direct 98 mg/dL (75-193) 11/23/17 19:05 HDL Cholesterol 36 mg/dL (23-92) 11/23/17 19:05 Free T4 1.08 ng/dL (0.82-1.77) 11/26/17 04:50 TSH 0.97 uIU/ml (0.34-5.60) 11/26/17 04:50 Stool Occult Blood NEGATIVE (NEGATIVE) 11/27/17 14:00 Urine Opiates Screen NEGATIVE (NEGATIVE) 11/24/17 15:00 Urine Methadone Screen NEGATIVE (NEGATIVE) 11/24/17 15:00 Ur Barbiturates Screen NEGATIVE (NEGATIVE) 11/24/17 15:00 Ur Tricyclics Screen NEGATIVE (NEGATIVE) 11/24/17 15:00 Ur Phencyclidine Scrn NEGATIVE (NEGATIVE) 11/24/17 15:00 Amphetamines Screen NEGATIVE (NEGATIVE) 11/24/17 15:00 U Methamphetamines Scrn NEGATIVE (NEGATIVE) 11/24/17 15:00 U Benzodiazepines Scrn POSITIVE (NEGATIVE) H 11/24/17 15:00 U Cocaine Metab Screen NEGATIVE (NEGATIVE) 11/24/17 15:00 U Cannabinoids Screen NEGATIVE (NEGATIVE) 11/24/17 15:00 Ethyl Alcohol < 10 mg/dL (0-10) 11/25/17 04:45 Blood Type A POSITIVE 11/26/17 11:45 - Physical Exam Vitals and I&O: Vital Signs Temp 98.3 F 11/28/17 04:00 Pulse 53 11/28/17 04:00 Resp 19 11/28/17 06:00 BP 109/75 11/28/17 04:00 Pulse Ox 100 11/28/17 04:00 Intake & Output 11/27/17 11/28/17 11/28/17 18:59 06:59 18:59 Intake Total 1100 340 Balance 1100 340 Weight (lbs) 63.594 kg Intake: Intake, IV Amount 1100 100 D5-0.9%Ns 1,000 ml @ 75 1000 mls/hr IV .[id number] [facility] Rx #:[id number] Piperacillin Sodium/ 100 100 Tazobact 3.375 gm In Dextrose 5% 50 ml @ 100 mls/hr IV Q6HR [facility] Rx#: [id number] Oral 240 Other: # Voids 4 # Bowel Movements 2 Stool Characteristics Liquid Liquid Brown Brown Green Green Weight Source Bedscale Active Medications: Current Medications [place] Oil/[place] Balsam/Trypsin (Venelex) 1 appl TP DAILY [facility] Stop: 01/24/18 08:59 Last Admin: 11/27/17 10:30 Dose: 1 appl Chlordiazepoxide (Librium) 5 mg PO DAILY MOISES; Protocol Stop: 01/24/18 18:29 Last Admin: 11/27/17 10:06 Dose: 5 mg Piperacillin Sod/Tazobactam (Sod 3.375 gm/ Dextrose) 50 mls @ 100 mls/hr IV Q6HR [facility] Stop: 01/23/18 05:59 Last Infusion: 11/28/17 05:51 Dose: Infused Dextrose/Sodium Chloride (D5-0.9%Ns) 1,000 mls @ 75 mls/hr IV .[id number] [facility] Stop: 01/23/18 05:59 Last Admin: 11/27/17 23:18 Dose: 75 mls/hr Lactulose (Cephulac) 30 gm PO DAILY [facility] Stop: 01/24/18 08:59 Last Admin: 11/27/17 10:06 Dose: 30 gm Lorazepam (Ativan) 0.5 mg IVP Q4HR PRN; Protocol PRN Reason: Agitation Stop: 01/23/18 05:03 Last Admin: 11/25/17 10:30 Dose: 0.5 mg Lorazepam (Ativan) 1 mg IVP Q4HR PRN; Protocol PRN Reason: Agitation Stop: 01/24/18 11:37 Miscellaneous (Zosyn Iv Per Pharmacy) 1 ea MC PRN MO[facility] Stop: 01/23/18 04:59 Pantoprazole Sodium (Protonix) 40 mg IVP DAILY MO[facility] Stop: 01/23/18 08:59 Last Admin: 11/27/17 10:06 Dose: 40 mg General: Alert, No acute distress HEENT: Atraumatic, PERRLA, EOMI Neck: Supple, no JVD Cardiovascular: Regular rate, Normal S1, Normal S2 Lungs: Other (rales) Abdomen: Bowel sounds, Soft Extremities: no Clubbing, no Cyanosis, no Edema Neurological: Normal gait, Normal speech Assessment/Plan - Problem List Patient Problems: All Active Problems ALTERED MENTAL STATUS WITH OLD WOUNDS (Acute) - Assessment Assessment: Current Active Problems Problem Status Onset ALTERED MENTAL STATUS WITH OLD WOUNDS Acute ALOC ETOH abuse alcohol withdrawal ... on Librium leukoctosis now resolved anemia hb 8.2 possible sepsis aspiration PNA elevated BNP will order cardiac consult hypotensive improved hepatic encephalopathy elevated ammonia level ... on lactulose - Plan Plan: will order zosyn per pharmacy repeat CBC,CMP,lactic acid, BNP this AM chest xray d5NS swallow eval repeat ETOH level this AM CBC add lactulose add librium ECHO may transfer to medical floor Nutritional Asmnt/Malnutr-PDOC - Dietary Evaluation Malnutrition Findings (Please click <Entered> for more info): Nutritional Asmnt/Malnutrition Start: 11/25/17 17: 20 Text: Status: Complete Freq: Protocol: Document 11/25/17 17:20 LCHENG (Rec: 11/25/17 17:36 DILANG [email or web address]) Nutritional Asmnt/Malnutrition Patient General Information Nutritional Screening Moderate Risk Consult Diagnosis ALOC, possible PNA aspiration, ETOH Pertinent Medical Hx/Surgical Hx HTN, dyslipidemia, dementia, Subjective Information Consult received for multiple wounds. Pt seen lying in bed at time of visit, awake and alert, on banana bag. Oral diet started from lunch today. Pt stated he was hungry. Per EMR, pt consumed 100% of lunch . Current Diet Order/ Nutrition Support [facility] soft ground Pertinent Medications D5-0.9%ns, banana bag, protonix, piperacillin Pertinent Labs 11/25 na 134, Cl 108, glucose 104, Ca 8.1, alb 2.5 Nutritional Hx/Data Height 1.68 m Height (Calculated Centimeters) 167.6 Current Weight (lbs) 58.967 kg Weight (Calculated Kilograms) 59.0 Weight (Calculated Grams) 83693.0 [place] Body Weight 142 Body Mass Index (BMI) 20.9 Weight Status Approriate GI Symptoms GI Symptoms None Last BM none Difficult in: None Skin Integrity/Comment: scars to left shoulder, left forehead and left foot skin tear to left upper back Current %PO Good (75-100%) Estimated Nutritional Goals BEE in Kcals: Using Current wt Calories/Kcals/Kg 27-32 Kcals Calculated 0438-3948 Protein: Using Current wt Protein g/k-1.2 Protein Calculated 59-71 Fluid: ml 1593-1888ml (1ml/kcal) Nutritional Problem 1. Problem Problem altered nutrition related labs Etiology electrolytes imbalance Signs/Symptoms: na 134, Cl 108, Ca 8.1 Malnutrition Alert Is there a minimum of two criteria No selected? Query Text:Check all the applicable criteria. A minimum of two criteria are recommended for diagnosis of either severe or non-severe malnutrition. Malnutrition Related to Morbid Obesity Malnutrition related to morbid obesity No Intervention/Recommendation Comments 1. Continue with current diet as ordered. 2. Monitor PO intake, wt, labs and skin integrity 3. F/U as moderate risk in 3-5 days, 11/28-11/30 Expected Outcomes/Goals Expected Outcomes/Goals 1. PO intake to meet at least 75% of nutritional needs. 2. Wt stability, skin to remain intact, labs to approach WNL.
[2017-11-28] MEDS: Lactulose 10 Gm/15 mL 30mL UDC PO SCH (08:17)
[2017-11-28] MEDS: Venelex 60gm Tube TP SCH (12:08)
--- NOTE | 2017-11-28 12:37 | Infectious Disease Prog Note ---
Infectious Disease Subjective - Review of Systems Service Date: 12/05/17 Subjective: Still aggressive, no fever.. Infectious Disease Objective - Results Result Diagrams: 11/27/17 06:20 11/27/17 06:20 Recent Labs: Laboratory Last Values WBC 6.7 Th/cmm (4.8-10.8) 11/27/17 06:20 RBC 3.34 Mil/cmm (4.30-5.70) L 11/27/17 06:20 Hgb 8.2 gm/dL (12-16) L 11/27/17 06:20 Hct 25.1 % (41.0-60) L 11/27/17 06:20 MCV 74.9 fl (80-99) L 11/27/17 06:20 MCH 24.6 pg (26.0-30.0) L 11/27/17 06:20 MCHC Differential 32.8 pg (28.0-36.0) 11/27/17 06:20 RDW 16.1 % (11.5-20.0) 11/27/17 06:20 Plt Count 421 Th/cmm (150-400) H 11/27/17 06:20 MPV 7.7 fl 11/27/17 06:20 Add Manual Diff YES 11/27/17 06:20 Neutrophils % 63.2 % (40.0-80.0) 11/26/17 04:50 Band Neutrophils % 0 % (0-10) 11/27/17 06:20 Lymphocytes % 22.1 % (20.0-50.0) 11/26/17 04:50 Monocytes % 7.2 % (2.0-10.0) 11/26/17 04:50 Eosinophils % 6.8 % (0.0-5.0) H 11/26/17 04:50 Basophils % 0.7 % (0.0-2.0) 11/26/17 04:50 Neutrophils (Manual) 65 % (40-80) 11/27/17 06:20 Lymphocytes 23 % (20-50) 11/27/17 06:20 Monocytes 4 % (2-10) 11/27/17 06:20 Eosinophils 8 % (0-5) H 11/27/17 06:20 Basophils 0 % (0-3) 11/27/17 06:20 Microcytosis 2+ 11/27/17 06:20 ESR 127 mm/hr (0-20) H 11/26/17 04:50 PT 11.3 SECONDS (9.5-11.5) 11/23/17 19:05 INR 1.09 (0.5-1.4) 11/23/17 19:05 Sodium 136 mEq/L (136-145) 11/27/17 06:20 Potassium 3.7 mEq/L (3.5-5.1) 11/27/17 06:20 Chloride 108 mEq/L (98-107) H 11/27/17 06:20 Carbon Dioxide 22.1 mEq/L (21.0-31.0) 11/27/17 06:20 Anion Gap 9.6 (7.0-16.0) 11/27/17 06:20 BUN 8 mg/dL (7-25) 11/27/17 06:20 Creatinine 0.8 mg/dL (0.7-1.3) 11/27/17 06:20 Est GFR ( Amer) > 60.0 ml/min (>90) 11/27/17 06:20 Est GFR (Non-Af Amer) > 60.0 ml/min 11/27/17 06:20 BUN/Creatinine Ratio 10.0 11/27/17 06:20 Glucose 104 mg/dL (70-105) 11/27/17 06:20 POC Glucose 84 MG/DL (70 - 105) 11/24/17 00:22 Whole Bld Lactic Acid 1.72 mmol/L (0.60-1.99) 11/24/17 05:00 Calcium 8.7 mg/dL (8.6-10.3) 11/27/17 06:20 Total Bilirubin 0.2 mg/dL (0.3-1.0) L 11/27/17 06:20 AST 10 U/L (13-39) L 11/27/17 06:20 ALT 6 U/L (7-52) L 11/27/17 06:20 Alkaline Phosphatase 45 U/L (34-104) 11/27/17 06:20 Ammonia 47 umol/L (16-53) 11/26/17 06:25 Creatine Kinase 113 U/L (30-223) 11/23/17 19:05 Troponin I < 0.01 ng/mL (0.01-0.05) L 11/23/17 19:05 B-Natriuretic Peptide 848.0 pg/mL (5.0-100.0) H 11/25/17 04:45 Total Protein 7.7 gm/dL (6.0-8.3) 11/27/17 06:20 Albumin 2.9 gm/dL (4.2-5.5) L 11/27/17 06:20 Globulin 4.8 gm/dL 11/27/17 06:20 Albumin/Globulin Ratio 0.6 (1.0-1.8) L 11/27/17 06:20 Triglycerides 68 mg/dL (<150) 11/23/17 19:05 Cholesterol 147 mg/dL (<200) 11/23/17 19:05 LDL Cholesterol Direct 98 mg/dL (75-193) 11/23/17 19:05 HDL Cholesterol 36 mg/dL (23-92) 11/23/17 19:05 Free T4 1.08 ng/dL (0.82-1.77) 11/26/17 04:50 TSH 0.97 uIU/ml (0.34-5.60) 11/26/17 04:50 Stool Occult Blood NEGATIVE (NEGATIVE) 11/27/17 14:00 Urine Opiates Screen NEGATIVE (NEGATIVE) 11/24/17 15:00 Urine Methadone Screen NEGATIVE (NEGATIVE) 11/24/17 15:00 Ur Barbiturates Screen NEGATIVE (NEGATIVE) 11/24/17 15:00 Ur Tricyclics Screen NEGATIVE (NEGATIVE) 11/24/17 15:00 Ur Phencyclidine Scrn NEGATIVE (NEGATIVE) 11/24/17 15:00 Amphetamines Screen NEGATIVE (NEGATIVE) 11/24/17 15:00 U Methamphetamines Scrn NEGATIVE (NEGATIVE) 11/24/17 15:00 U Benzodiazepines Scrn POSITIVE (NEGATIVE) H 11/24/17 15:00 U Cocaine Metab Screen NEGATIVE (NEGATIVE) 11/24/17 15:00 U Cannabinoids Screen NEGATIVE (NEGATIVE) 11/24/17 15:00 Ethyl Alcohol < 10 mg/dL (0-10) 11/25/17 04:45 Blood Type A POSITIVE 11/26/17 11:45 - Physical Exam Vitals and I&O: Vital Signs Temp 98.3 F 11/28/17 04:00 Pulse 59 11/28/17 07:00 Resp 20 11/28/17 10:00 BP 109/75 11/28/17 04:00 Pulse Ox 98 11/28/17 07:00 Intake & Output 11/27/17 11/28/17 11/28/17 18:59 06:59 18:59 Intake Total 1100 340 Balance 1100 340 Weight (lbs) 63.594 kg Intake: Intake, IV Amount 1100 100 D5-0.9%Ns 1,000 ml @ 75 1000 mls/hr IV .[id number] [facility] Rx #:[id number] Piperacillin Sodium/ 100 100 Tazobact 3.375 gm In Dextrose 5% 50 ml @ 100 mls/hr IV Q6HR [facility] Rx#: [id number] Oral 240 Other: # Voids 4 # Bowel Movements 2 Stool Characteristics Liquid Liquid Brown Brown Green Green Weight Source Bedscale Active Medications: Current Medications [place] Oil/[place] Balsam/Trypsin (Venelex) 1 appl TP DAILY [facility] Stop: 01/24/18 08:59 Last Admin: 11/28/17 12:08 Dose: 1 appl Chlordiazepoxide (Librium) 5 mg PO DAILY MOISES; Protocol Stop: 01/24/18 18:29 Last Admin: 11/28/17 08:17 Dose: 5 mg Piperacillin Sod/Tazobactam (Sod 3.375 gm/ Dextrose) 50 mls @ 100 mls/hr IV Q6HR MO[facility] Stop: 01/23/18 05:59 Last Admin: 11/28/17 12:06 Dose: 100 mls/hr Dextrose/Sodium Chloride (D5-0.9%Ns) 1,000 mls @ 75 mls/hr IV .[id number] [facility] Stop: 01/23/18 05:59 Last Admin: 11/27/17 23:18 Dose: 75 mls/hr Lactulose (Cephulac) 30 gm PO DAILY [facility] Stop: 01/24/18 08:59 Last Admin: 11/28/17 08:17 Dose: 30 gm Lorazepam (Ativan) 0.5 mg IVP Q4HR PRN; Protocol PRN Reason: Agitation Stop: 01/23/18 05:03 Last Admin: 11/25/17 10:30 Dose: 0.5 mg Lorazepam (Ativan) 1 mg IVP Q4HR PRN; Protocol PRN Reason: Agitation Stop: 01/24/18 11:37 Miscellaneous (Zosyn Iv Per Pharmacy) 1 ea MC PRN MO[facility] Stop: 01/23/18 04:59 Pantoprazole Sodium (Protonix) 40 mg IVP DAILY [facility] Stop: 01/23/18 08:59 Last Admin: 11/28/17 08:17 Dose: 40 mg General: no acute distress, well developed, well nourished HEENT: atraumatic, normocephalic, PERRLA Neck: supple, no thyromegaly Cardiovascular: S1S2, regular Lungs: clear to auscultation bilaterally, clear to percussion Abdomen: soft, no tender, no distended Extremities: no cyanosis, no clubbing, no edema Neurological: awake, alert, oriented Skin: intact Infectious Disease Assmt/Plan - Problem List Patient Problems: All Active Problems ALTERED MENTAL STATUS WITH OLD WOUNDS (Acute) - Assessment Assessment: 1. Altered mental status due to alcohol abuse. 2. Leukocytosis or sepsis versus secondary aspiration pneumonia. 3. Laceration wound on left eyebrow/face. 4. Alcohol abuse. - Plan Plan: Continue Zosyn, it can be changed to levaquin po and flagyl po for 7 more days. Nutritional Asmnt/Malnutr-PDOC - Dietary Evaluation Malnutrition Findings (Please click <Entered> for more info): Nutritional Asmnt/Malnutrition Start: 11/25/17 17: 20 Text: Status: Complete Freq: Protocol: Document 11/25/17 17:20 LCHENG (Rec: 11/25/17 17:36 DILANG [email or web address]) Nutritional Asmnt/Malnutrition Patient General Information Nutritional Screening Moderate Risk Consult Diagnosis ALOC, possible PNA aspiration, ETOH Pertinent Medical Hx/Surgical Hx HTN, dyslipidemia, dementia, Subjective Information Consult received for multiple wounds. Pt seen lying in bed at time of visit, awake and alert, on banana bag. Oral diet started from lunch today. Pt stated he was hungry. Per EMR, pt consumed 100% of lunch . Current Diet Order/ Nutrition Support [facility] soft ground Pertinent Medications D5-0.9%ns, banana bag, protonix, piperacillin Pertinent Labs 11/25 na 134, Cl 108, glucose 104, Ca 8.1, alb 2.5 Nutritional Hx/Data Height 1.68 m Height (Calculated Centimeters) 167.6 Current Weight (lbs) 58.967 kg Weight (Calculated Kilograms) 59.0 Weight (Calculated Grams) 90378.0 [place] Body Weight 142 Body Mass Index (BMI) 20.9 Weight Status Approriate GI Symptoms GI Symptoms None Last BM none Difficult in: None Skin Integrity/Comment: scars to left shoulder, left forehead and left foot skin tear to left upper back Current %PO Good (75-100%) Estimated Nutritional Goals BEE in Kcals: Using Current wt Calories/Kcals/Kg 27-32 Kcals Calculated 6557-6404 Protein: Using Current wt Protein g/k-1.2 Protein Calculated 59-71 Fluid: ml 1593-1888ml (1ml/kcal) Nutritional Problem 1. Problem Problem altered nutrition related labs Etiology electrolytes imbalance Signs/Symptoms: na 134, Cl 108, Ca 8.1 Malnutrition Alert Is there a minimum of two criteria No selected? Query Text:Check all the applicable criteria. A minimum of two criteria are recommended for diagnosis of either severe or non-severe malnutrition. Malnutrition Related to Morbid Obesity Malnutrition related to morbid obesity No Intervention/Recommendation Comments 1. Continue with current diet as ordered. 2. Monitor PO intake, wt, labs and skin integrity 3. F/U as moderate risk in 3-5 days, 11/28-11/30 Expected Outcomes/Goals Expected Outcomes/Goals 1. PO intake to meet at least 75% of nutritional needs. 2. Wt stability, skin to remain intact, labs to approach WNL.
--- NOTE | 2017-11-28 18:03 | Cardiology ---
The patient Dr. Charlesald Charisse. ____ M-MODE ECHOCARDIOGRAM: Mitral valve, anterior leaflet of mitral valve shows normal excursion, EF velocity. Posterior leaflet of mitral valve shows normal excursion. Left ventricular posterior wall shows increased thickness, normal excursion. Interventricular septum shows increased thickness, normal excursion, hypertrophy of the left ventricle, ejection fraction 58%. Left atrium normal. Aortic root shows normal dimension, normal excursion of aortic leaflets. CONCLUSION: Hypertrophy of the left ventricle, ejection fraction 58%. 2D ECHO: Long axis view shows normal-sized left ventricle with hypertrophy of the left ventricle. Left atrium normal. Aortic root shows normal dimension, normal excursion of aortic leaflets. Short axis view of mitral valve normal. Short axis view of aortic valve normal. Apical four chamber view showed normal sized left ventricle with hypertrophy of the left ventricle. Left atrium normal. Right ventricular cavity, right atrium normal, no pericardial effusion. CONCLUSION: Hypertrophy of the left ventricle, ejection fraction 58%. Doppler study shows trace mitral regurgitation, mild tricuspid regurgitation, right ventricular systolic pressure 33 mmHg. JOB# [id number]
--- NOTE | 2017-11-28 23:30 | Consultation ---
DATE OF CONSULTATION: 11/28/[address] Philip Mcqueen HISTORY AND PHYSICAL: This 62-year-old male patient who was found unresponsive in the public transport. Following this, the patient was brought to the hospital and the patient is here for evaluation. PAST MEDICAL HISTORY: Hypertension, hyperlipidemia, dementia, alcohol intoxication. FAMILY HISTORY: Unremarkable. SOCIAL HISTORY: The patient has a history of alcohol abuse. ALLERGIES: No known allergies. PHYSICAL EXAMINATION: VITAL SIGNS: Blood pressure 130/80, pulse 70, respirations 20. HEAD: Normocephalic. No lumps or bumps. EYES: Pupils equal, reactive to light. Fundi show AV nicking, sclerae white, conjunctivae pink. NECK: Carotid 2+. Normal upstroke. JVD flat. Thyroid not palpable. Lymph nodes not palpable. CHEST: Shows increased AP diameter. No kyphosis, scoliosis. LUNGS: Bilateral bronchovesicular breath sounds. Occasional wheeze. No rales. HEART: PMI fifth intercostal space with lateral to midclavicular line. S1, S2, S3, S4, soft systolic murmur. ABDOMEN: Soft. Liver and spleen not palpable. No organomegaly. Bowel sounds active. NEUROLOGIC: No focal neurological deficit. EXTREMITIES: Peripheral pulses 1+. No pedal edema. CLINICAL IMPRESSION: Alcohol intoxication, alcohol withdrawal, dementia, hypertension, hyperlipidemia, bradycardia. PLAN: We will monitor the patient closely. JOB# [id number]
[2017-11-29 06:12] LABS: FOLIC ACID 14.9 ng/mL (>3.0)
--- NOTE | 2017-11-29 08:08 | General Progress Note ---
Subjective - Review of Systems Service Date: 11/29/17 Subjective: Patient is more awake and alert afebrile. no new changes. bp better. EF 58%. Patient complaining of diarrhea Objective - Results Result Diagrams: 11/27/17 06:20 11/27/17 06:20 Recent Labs: Laboratory Last Values WBC 6.7 Th/cmm (4.8-10.8) 11/27/17 06:20 RBC 3.34 Mil/cmm (4.30-5.70) L 11/27/17 06:20 Hgb 8.2 gm/dL (12-16) L 11/27/17 06:20 Hct 25.1 % (41.0-60) L 11/27/17 06:20 MCV 74.9 fl (80-99) L 11/27/17 06:20 MCH 24.6 pg (26.0-30.0) L 11/27/17 06:20 MCHC Differential 32.8 pg (28.0-36.0) 11/27/17 06:20 RDW 16.1 % (11.5-20.0) 11/27/17 06:20 Plt Count 421 Th/cmm (150-400) H 11/27/17 06:20 MPV 7.7 fl 11/27/17 06:20 Add Manual Diff YES 11/27/17 06:20 Neutrophils % 63.2 % (40.0-80.0) 11/26/17 04:50 Band Neutrophils % 0 % (0-10) 11/27/17 06:20 Lymphocytes % 22.1 % (20.0-50.0) 11/26/17 04:50 Monocytes % 7.2 % (2.0-10.0) 11/26/17 04:50 Eosinophils % 6.8 % (0.0-5.0) H 11/26/17 04:50 Basophils % 0.7 % (0.0-2.0) 11/26/17 04:50 Neutrophils (Manual) 65 % (40-80) 11/27/17 06:20 Lymphocytes 23 % (20-50) 11/27/17 06:20 Monocytes 4 % (2-10) 11/27/17 06:20 Eosinophils 8 % (0-5) H 11/27/17 06:20 Basophils 0 % (0-3) 11/27/17 06:20 Microcytosis 2+ 11/27/17 06:20 ESR 127 mm/hr (0-20) H 11/26/17 04:50 PT 11.3 SECONDS (9.5-11.5) 11/23/17 19:05 INR 1.09 (0.5-1.4) 11/23/17 19:05 Sodium 136 mEq/L (136-145) 11/27/17 06:20 Potassium 3.7 mEq/L (3.5-5.1) 11/27/17 06:20 Chloride 108 mEq/L (98-107) H 11/27/17 06:20 Carbon Dioxide 22.1 mEq/L (21.0-31.0) 11/27/17 06:20 Anion Gap 9.6 (7.0-16.0) 11/27/17 06:20 BUN 8 mg/dL (7-25) 11/27/17 06:20 Creatinine 0.8 mg/dL (0.7-1.3) 11/27/17 06:20 Est GFR ( Amer) > 60.0 ml/min (>90) 11/27/17 06:20 Est GFR (Non-Af Amer) > 60.0 ml/min 11/27/17 06:20 BUN/Creatinine Ratio 10.0 11/27/17 06:20 Glucose 104 mg/dL (70-105) 11/27/17 06:20 POC Glucose 84 MG/DL (70 - 105) 11/24/17 00:22 Whole Bld Lactic Acid 1.72 mmol/L (0.60-1.99) 11/24/17 05:00 Calcium 8.7 mg/dL (8.6-10.3) 11/27/17 06:20 Total Bilirubin 0.2 mg/dL (0.3-1.0) L 11/27/17 06:20 AST 10 U/L (13-39) L 11/27/17 06:20 ALT 6 U/L (7-52) L 11/27/17 06:20 Alkaline Phosphatase 45 U/L (34-104) 11/27/17 06:20 Ammonia 47 umol/L (16-53) 11/26/17 06:25 Creatine Kinase 113 U/L (30-223) 11/23/17 19:05 Troponin I < 0.01 ng/mL (0.01-0.05) L 11/23/17 19:05 B-Natriuretic Peptide 848.0 pg/mL (5.0-100.0) H 11/25/17 04:45 Total Protein 7.7 gm/dL (6.0-8.3) 11/27/17 06:20 Albumin 2.9 gm/dL (4.2-5.5) L 11/27/17 06:20 Globulin 4.8 gm/dL 11/27/17 06:20 Albumin/Globulin Ratio 0.6 (1.0-1.8) L 11/27/17 06:20 Triglycerides 68 mg/dL (<150) 11/23/17 19:05 Cholesterol 147 mg/dL (<200) 11/23/17 19:05 LDL Cholesterol Direct 98 mg/dL (75-193) 11/23/17 19:05 HDL Cholesterol 36 mg/dL (23-92) 11/23/17 19:05 Vitamin B12 740 pg/mL (232-1245) 11/26/17 04:50 Folic Acid 14.9 ng/mL (>3.0) 11/26/17 04:50 Free T4 1.08 ng/dL (0.82-1.77) 11/26/17 04:50 TSH 0.97 uIU/ml (0.34-5.60) 11/26/17 04:50 Stool Occult Blood NEGATIVE (NEGATIVE) 11/27/17 14:00 Urine Opiates Screen NEGATIVE (NEGATIVE) 11/24/17 15:00 Urine Methadone Screen NEGATIVE (NEGATIVE) 11/24/17 15:00 Ur Barbiturates Screen NEGATIVE (NEGATIVE) 11/24/17 15:00 Ur Tricyclics Screen NEGATIVE (NEGATIVE) 11/24/17 15:00 Ur Phencyclidine Scrn NEGATIVE (NEGATIVE) 11/24/17 15:00 Amphetamines Screen NEGATIVE (NEGATIVE) 11/24/17 15:00 U Methamphetamines Scrn NEGATIVE (NEGATIVE) 11/24/17 15:00 U Benzodiazepines Scrn POSITIVE (NEGATIVE) H 11/24/17 15:00 U Cocaine Metab Screen NEGATIVE (NEGATIVE) 11/24/17 15:00 U Cannabinoids Screen NEGATIVE (NEGATIVE) 11/24/17 15:00 Ethyl Alcohol < 10 mg/dL (0-10) 11/25/17 04:45 Blood Type A POSITIVE 11/26/17 11:45 - Physical Exam Vitals and I&O: Vital Signs Temp 98.1 F 11/29/17 04:00 Pulse 52 11/29/17 04:00 Resp 20 11/29/17 05:54 BP 101/54 11/29/17 04:00 Pulse Ox 97 11/29/17 04:00 Intake & Output 11/28/17 11/29/17 11/29/17 18:59 06:59 18:59 Intake Total 100 100 Balance 100 100 Weight (lbs) 63.503 kg Intake: Intake, IV Amount 100 100 Piperacillin Sodium/ 100 100 Tazobact 3.375 gm In Dextrose 5% 50 ml @ 100 mls/hr IV Q6HR [facility] Rx#: [id number] Other: # Voids 3 Weight Source Bedscale Active Medications: Current Medications [place] Oil/[place] Balsam/Trypsin (Venelex) 1 appl TP DAILY MOISES Stop: 01/24/18 08:59 Last Admin: 11/28/17 12:08 Dose: 1 appl Chlordiazepoxide (Librium) 5 mg PO DAILY MOISES; Protocol Stop: 01/24/18 18:29 Last Admin: 11/28/17 08:17 Dose: 5 mg Dextrose/Sodium Chloride (D5-0.9%Ns) 1,000 mls @ 75 mls/hr IV .[id number] MOISES Stop: 01/23/18 05:59 Last Admin: 11/27/17 23:18 Dose: 75 mls/hr Lactulose (Cephulac) 30 gm PO DAILY MOISES Stop: 01/24/18 08:59 Last Admin: 11/28/17 08:17 Dose: 30 gm Lorazepam (Ativan) 0.5 mg IVP Q4HR PRN; Protocol PRN Reason: Agitation Stop: 01/23/18 05:03 Last Admin: 11/25/17 10:30 Dose: 0.5 mg Lorazepam (Ativan) 1 mg IVP Q4HR PRN; Protocol PRN Reason: Agitation Stop: 01/24/18 11:37 Pantoprazole Sodium (Protonix) 40 mg IVP DAILY MOISES Stop: 01/23/18 08:59 Last Admin: 11/28/17 08:17 Dose: 40 mg General: Alert, No acute distress HEENT: Atraumatic, PERRLA, EOMI Neck: Supple, no JVD Cardiovascular: Regular rate, Normal S1, Normal S2 Lungs: Other (rales) Abdomen: Bowel sounds, Soft Extremities: no Clubbing, no Cyanosis, no Edema Neurological: Normal gait, Normal speech Assessment/Plan - Problem List Patient Problems: All Active Problems ALTERED MENTAL STATUS WITH OLD WOUNDS (Acute) - Assessment Assessment: Current Active Problems Problem Status Onset ALTERED MENTAL STATUS WITH OLD WOUNDS Acute ALOC ETOH abuse alcohol withdrawal ... on Librium leukoctosis now resolved anemia hb 8.2 possible sepsis elevated BNP will order cardiac consult hypotensive improved hepatic encephalopathy elevated ammonia level ... on lactulose - Plan Plan: dc zosyn repeat CBC,CMP,lactic acid, BNP this AM chest xray d5NS swallow eval repeat ETOH level this AM CBC add lactulose add librium ECHO licensed clinical social worker consult Nutritional Asmnt/Malnutr-PDOC - Dietary Evaluation Malnutrition Findings (Please click <Entered> for more info): Nutritional Asmnt/Malnutrition Start: 11/25/17 17: 20 Text: Status: Complete Freq: Protocol: Document 11/25/17 17:20 LCHENG (Rec: 11/25/17 17:36 [email or web address]) Nutritional Asmnt/Malnutrition Patient General Information Nutritional Screening Moderate Risk Consult Diagnosis ALOC, possible PNA aspiration, ETOH Pertinent Medical Hx/Surgical Hx HTN, dyslipidemia, dementia, Subjective Information Consult received for multiple wounds. Pt seen lying in bed at time of visit, awake and alert, on banana bag. Oral diet started from lunch today. Pt stated he was hungry. Per EMR, pt consumed 100% of lunch . Current Diet Order/ Nutrition Support [facility] soft ground Pertinent Medications D5-0.9%ns, banana bag, protonix, piperacillin Pertinent Labs 11/25 na 134, Cl 108, glucose 104, Ca 8.1, alb 2.5 Nutritional Hx/Data Height 1.68 m Height (Calculated Centimeters) 167.6 Current Weight (lbs) 58.967 kg Weight (Calculated Kilograms) 59.0 Weight (Calculated Grams) 66190.0 [place] Body Weight 142 Body Mass Index (BMI) 20.9 Weight Status Approriate GI Symptoms GI Symptoms None Last BM none Difficult in: None Skin Integrity/Comment: scars to left shoulder, left forehead and left foot skin tear to left upper back Current %PO Good (75-100%) Estimated Nutritional Goals BEE in Kcals: Using Current wt Calories/Kcals/Kg 27-32 Kcals Calculated 7186-0557 Protein: Using Current wt Protein g/k-1.2 Protein Calculated 59-71 Fluid: ml 1593-1888ml (1ml/kcal) Nutritional Problem 1. Problem Problem altered nutrition related labs Etiology electrolytes imbalance Signs/Symptoms: na 134, Cl 108, Ca 8.1 Malnutrition Alert Is there a minimum of two criteria No selected? Query Text:Check all the applicable criteria. A minimum of two criteria are recommended for diagnosis of either severe or non-severe malnutrition. Malnutrition Related to Morbid Obesity Malnutrition related to morbid obesity No Intervention/Recommendation Comments 1. Continue with current diet as ordered. 2. Monitor PO intake, wt, labs and skin integrity 3. F/U as moderate risk in 3-5 days, 11/28-11/30 Expected Outcomes/Goals Expected Outcomes/Goals 1. PO intake to meet at least 75% of nutritional needs. 2. Wt stability, skin to remain intact, labs to approach WNL.
[2017-11-29] MEDS: Venelex 60gm Tube TP SCH (08:13)
[2017-11-29] MEDS ORDERED: Probiotic Screen MC PRN (10:15)
--- NOTE | 2017-11-29 12:29 | Infectious Disease Prog Note ---
Infectious Disease Subjective - Review of Systems Service Date: 11/29/17 Events since last encounter: No events. Subjective: Feeling better. Comfortable, calm. Communicates well now. No fever.. Infectious Disease Objective - Results Result Diagrams: 11/27/17 06:20 11/27/17 06:20 Recent Labs: Laboratory Last Values WBC 6.7 Th/cmm (4.8-10.8) 11/27/17 06:20 RBC 3.34 Mil/cmm (4.30-5.70) L 11/27/17 06:20 Hgb 8.2 gm/dL (12-16) L 11/27/17 06:20 Hct 25.1 % (41.0-60) L 11/27/17 06:20 MCV 74.9 fl (80-99) L 11/27/17 06:20 MCH 24.6 pg (26.0-30.0) L 11/27/17 06:20 MCHC Differential 32.8 pg (28.0-36.0) 11/27/17 06:20 RDW 16.1 % (11.5-20.0) 11/27/17 06:20 Plt Count 421 Th/cmm (150-400) H 11/27/17 06:20 MPV 7.7 fl 11/27/17 06:20 Add Manual Diff YES 11/27/17 06:20 Neutrophils % 63.2 % (40.0-80.0) 11/26/17 04:50 Band Neutrophils % 0 % (0-10) 11/27/17 06:20 Lymphocytes % 22.1 % (20.0-50.0) 11/26/17 04:50 Monocytes % 7.2 % (2.0-10.0) 11/26/17 04:50 Eosinophils % 6.8 % (0.0-5.0) H 11/26/17 04:50 Basophils % 0.7 % (0.0-2.0) 11/26/17 04:50 Neutrophils (Manual) 65 % (40-80) 11/27/17 06:20 Lymphocytes 23 % (20-50) 11/27/17 06:20 Monocytes 4 % (2-10) 11/27/17 06:20 Eosinophils 8 % (0-5) H 11/27/17 06:20 Basophils 0 % (0-3) 11/27/17 06:20 Microcytosis 2+ 11/27/17 06:20 ESR 127 mm/hr (0-20) H 11/26/17 04:50 PT 11.3 SECONDS (9.5-11.5) 11/23/17 19:05 INR 1.09 (0.5-1.4) 11/23/17 19:05 Sodium 136 mEq/L (136-145) 11/27/17 06:20 Potassium 3.7 mEq/L (3.5-5.1) 11/27/17 06:20 Chloride 108 mEq/L (98-107) H 11/27/17 06:20 Carbon Dioxide 22.1 mEq/L (21.0-31.0) 11/27/17 06:20 Anion Gap 9.6 (7.0-16.0) 11/27/17 06:20 BUN 8 mg/dL (7-25) 11/27/17 06:20 Creatinine 0.8 mg/dL (0.7-1.3) 11/27/17 06:20 Est GFR ( Amer) > 60.0 ml/min (>90) 11/27/17 06:20 Est GFR (Non-Af Amer) > 60.0 ml/min 11/27/17 06:20 BUN/Creatinine Ratio 10.0 11/27/17 06:20 Glucose 104 mg/dL (70-105) 11/27/17 06:20 POC Glucose 84 MG/DL (70 - 105) 11/24/17 00:22 Whole Bld Lactic Acid 1.72 mmol/L (0.60-1.99) 11/24/17 05:00 Calcium 8.7 mg/dL (8.6-10.3) 11/27/17 06:20 Total Bilirubin 0.2 mg/dL (0.3-1.0) L 11/27/17 06:20 AST 10 U/L (13-39) L 11/27/17 06:20 ALT 6 U/L (7-52) L 11/27/17 06:20 Alkaline Phosphatase 45 U/L (34-104) 11/27/17 06:20 Ammonia 47 umol/L (16-53) 11/26/17 06:25 Creatine Kinase 113 U/L (30-223) 11/23/17 19:05 Troponin I < 0.01 ng/mL (0.01-0.05) L 11/23/17 19:05 B-Natriuretic Peptide 848.0 pg/mL (5.0-100.0) H 11/25/17 04:45 Total Protein 7.7 gm/dL (6.0-8.3) 11/27/17 06:20 Albumin 2.9 gm/dL (4.2-5.5) L 11/27/17 06:20 Globulin 4.8 gm/dL 11/27/17 06:20 Albumin/Globulin Ratio 0.6 (1.0-1.8) L 11/27/17 06:20 Triglycerides 68 mg/dL (<150) 11/23/17 19:05 Cholesterol 147 mg/dL (<200) 11/23/17 19:05 LDL Cholesterol Direct 98 mg/dL (75-193) 11/23/17 19:05 HDL Cholesterol 36 mg/dL (23-92) 11/23/17 19:05 Vitamin B12 740 pg/mL (232-1245) 11/26/17 04:50 Folic Acid 14.9 ng/mL (>3.0) 11/26/17 04:50 Free T4 1.08 ng/dL (0.82-1.77) 11/26/17 04:50 TSH 0.97 uIU/ml (0.34-5.60) 11/26/17 04:50 Stool Occult Blood NEGATIVE (NEGATIVE) 11/27/17 14:00 Urine Opiates Screen NEGATIVE (NEGATIVE) 11/24/17 15:00 Urine Methadone Screen NEGATIVE (NEGATIVE) 11/24/17 15:00 Ur Barbiturates Screen NEGATIVE (NEGATIVE) 11/24/17 15:00 Ur Tricyclics Screen NEGATIVE (NEGATIVE) 11/24/17 15:00 Ur Phencyclidine Scrn NEGATIVE (NEGATIVE) 11/24/17 15:00 Amphetamines Screen NEGATIVE (NEGATIVE) 11/24/17 15:00 U Methamphetamines Scrn NEGATIVE (NEGATIVE) 11/24/17 15:00 U Benzodiazepines Scrn POSITIVE (NEGATIVE) H 11/24/17 15:00 U Cocaine Metab Screen NEGATIVE (NEGATIVE) 11/24/17 15:00 U Cannabinoids Screen NEGATIVE (NEGATIVE) 11/24/17 15:00 Ethyl Alcohol < 10 mg/dL (0-10) 11/25/17 04:45 Blood Type A POSITIVE 11/26/17 11:45 - Physical Exam Vitals and I&O: Vital Signs Temp 97.4 F 11/29/17 12:00 Pulse 56 11/29/17 12:00 Resp 17 11/29/17 12:00 BP 101/67 11/29/17 12:00 Pulse Ox 97 11/29/17 12:00 Intake & Output 11/28/17 11/29/17 11/29/17 18:59 06:59 18:59 Intake Total 100 100 Balance 100 100 Weight (lbs) 63.503 kg Intake: Intake, IV Amount 100 100 Piperacillin Sodium/ 100 100 Tazobact 3.375 gm In Dextrose 5% 50 ml @ 100 mls/hr IV Q6HR [facility] Rx#: [id number] Other: # Voids 3 Weight Source Bedscale Active Medications: Current Medications [place] Oil/[place] Balsam/Trypsin (Venelex) 1 appl TP DAILY MOISES Stop: 01/24/18 08:59 Last Admin: 11/29/17 08:13 Dose: 1 appl Chlordiazepoxide (Librium) 5 mg PO DAILY MOISES; Protocol Stop: 01/24/18 18:29 Last Admin: 11/29/17 08:12 Dose: 5 mg Dextrose/Sodium Chloride (D5-0.9%Ns) 1,000 mls @ 75 mls/hr IV .[id number] MOISES Stop: 01/23/18 05:59 Last Admin: 11/27/17 23:18 Dose: 75 mls/hr Lactobacillus Rhamnosus (Culturelle 15b) 1 each PO DAILY MOISES Stop: 01/29/18 08:59 Lorazepam (Ativan) 1 mg IVP Q4HR PRN; Protocol PRN Reason: Agitation Stop: 01/24/18 11:37 Miscellaneous (Probiotic Screen) 1 ea MC PRN PRN PRN Reason: PROTOCOL Stop: 01/28/18 10:14 Pantoprazole Sodium (Protonix) 40 mg IVP DAILY MOISES Stop: 01/23/18 08:59 Last Admin: 11/29/17 08:12 Dose: 40 mg General: no acute distress, cachectic HEENT: atraumatic, normocephalic, PERRLA Neck: supple, no thyromegaly Cardiovascular: S1S2, regular Lungs: clear to auscultation bilaterally, clear to percussion Abdomen: soft, no tender Extremities: no cyanosis, no clubbing, no edema Neurological: awake, alert, oriented Skin: intact Infectious Disease Assmt/Plan - Problem List Patient Problems: All Active Problems ALTERED MENTAL STATUS WITH OLD WOUNDS (Acute) - Assessment Assessment: 1. Altered mental status due to alcohol abuse. 2. Leukocytosis or sepsis versus secondary aspiration pneumonia. Improved. 3. Laceration wound on left eyebrow/face. 4. Alcohol abuse. - Plan Plan: Continue Zosyn, it can be changed to levaquin po and flagyl po for 7 more days. Nutritional Asmnt/Malnutr-PDOC - Dietary Evaluation Malnutrition Findings (Please click <Entered> for more info): Nutritional Asmnt/Malnutrition Start: 11/25/17 17: 20 Text: Status: Complete Freq: Protocol: Document 11/25/17 17:20 LCHENG (Rec: 11/25/17 17:36 DILANG [email or web address]) Nutritional Asmnt/Malnutrition Patient General Information Nutritional Screening Moderate Risk Consult Diagnosis ALOC, possible PNA aspiration, ETOH Pertinent Medical Hx/Surgical Hx HTN, dyslipidemia, dementia, Subjective Information Consult received for multiple wounds. Pt seen lying in bed at time of visit, awake and alert, on banana bag. Oral diet started from lunch today. Pt stated he was hungry. Per EMR, pt consumed 100% of lunch . Current Diet Order/ Nutrition Support [facility] soft ground Pertinent Medications D5-0.9%ns, banana bag, protonix, piperacillin Pertinent Labs 11/25 na 134, Cl 108, glucose 104, Ca 8.1, alb 2.5 Nutritional Hx/Data Height 1.68 m Height (Calculated Centimeters) 167.6 Current Weight (lbs) 58.967 kg Weight (Calculated Kilograms) 59.0 Weight (Calculated Grams) 87150.0 [place] Body Weight 142 Body Mass Index (BMI) 20.9 Weight Status Approriate GI Symptoms GI Symptoms None Last BM none Difficult in: None Skin Integrity/Comment: scars to left shoulder, left forehead and left foot skin tear to left upper back Current %PO Good (75-100%) Estimated Nutritional Goals BEE in Kcals: Using Current wt Calories/Kcals/Kg 27-32 Kcals Calculated 2483-3507 Protein: Using Current wt Protein g/k-1.2 Protein Calculated 59-71 Fluid: ml 1593-1888ml (1ml/kcal) Nutritional Problem 1. Problem Problem altered nutrition related labs Etiology electrolytes imbalance Signs/Symptoms: na 134, Cl 108, Ca 8.1 Malnutrition Alert Is there a minimum of two criteria No selected? Query Text:Check all the applicable criteria. A minimum of two criteria are recommended for diagnosis of either severe or non-severe malnutrition. Malnutrition Related to Morbid Obesity Malnutrition related to morbid obesity No Intervention/Recommendation Comments 1. Continue with current diet as ordered. 2. Monitor PO intake, wt, labs and skin integrity 3. F/U as moderate risk in 3-5 days, 11/28-11/30 Expected Outcomes/Goals Expected Outcomes/Goals 1. PO intake to meet at least 75% of nutritional needs. 2. Wt stability, skin to remain intact, labs to approach WNL.
--- NOTE | 2017-11-30 08:13 | General Progress Note ---
Subjective - Review of Systems Service Date: 11/30/17 Subjective: Patient is more awake and alert afebrile but confused. no new changes. bp better. EF 58%. diarrhea improved. Objective - Results Result Diagrams: 11/27/17 06:20 11/27/17 06:20 Recent Labs: Laboratory Last Values WBC 6.7 Th/cmm (4.8-10.8) 11/27/17 06:20 RBC 3.34 Mil/cmm (4.30-5.70) L 11/27/17 06:20 Hgb 8.2 gm/dL (12-16) L 11/27/17 06:20 Hct 25.1 % (41.0-60) L 11/27/17 06:20 MCV 74.9 fl (80-99) L 11/27/17 06:20 MCH 24.6 pg (26.0-30.0) L 11/27/17 06:20 MCHC Differential 32.8 pg (28.0-36.0) 11/27/17 06:20 RDW 16.1 % (11.5-20.0) 11/27/17 06:20 Plt Count 421 Th/cmm (150-400) H 11/27/17 06:20 MPV 7.7 fl 11/27/17 06:20 Add Manual Diff YES 11/27/17 06:20 Neutrophils % 63.2 % (40.0-80.0) 11/26/17 04:50 Band Neutrophils % 0 % (0-10) 11/27/17 06:20 Lymphocytes % 22.1 % (20.0-50.0) 11/26/17 04:50 Monocytes % 7.2 % (2.0-10.0) 11/26/17 04:50 Eosinophils % 6.8 % (0.0-5.0) H 11/26/17 04:50 Basophils % 0.7 % (0.0-2.0) 11/26/17 04:50 Neutrophils (Manual) 65 % (40-80) 11/27/17 06:20 Lymphocytes 23 % (20-50) 11/27/17 06:20 Monocytes 4 % (2-10) 11/27/17 06:20 Eosinophils 8 % (0-5) H 11/27/17 06:20 Basophils 0 % (0-3) 11/27/17 06:20 Microcytosis 2+ 11/27/17 06:20 ESR 127 mm/hr (0-20) H 11/26/17 04:50 PT 11.3 SECONDS (9.5-11.5) 11/23/17 19:05 INR 1.09 (0.5-1.4) 11/23/17 19:05 Sodium 136 mEq/L (136-145) 11/27/17 06:20 Potassium 3.7 mEq/L (3.5-5.1) 11/27/17 06:20 Chloride 108 mEq/L (98-107) H 11/27/17 06:20 Carbon Dioxide 22.1 mEq/L (21.0-31.0) 11/27/17 06:20 Anion Gap 9.6 (7.0-16.0) 11/27/17 06:20 BUN 8 mg/dL (7-25) 11/27/17 06:20 Creatinine 0.8 mg/dL (0.7-1.3) 11/27/17 06:20 Est GFR ( Amer) > 60.0 ml/min (>90) 11/27/17 06:20 Est GFR (Non-Af Amer) > 60.0 ml/min 11/27/17 06:20 BUN/Creatinine Ratio 10.0 11/27/17 06:20 Glucose 104 mg/dL (70-105) 11/27/17 06:20 POC Glucose 84 MG/DL (70 - 105) 11/24/17 00:22 Whole Bld Lactic Acid 1.72 mmol/L (0.60-1.99) 11/24/17 05:00 Calcium 8.7 mg/dL (8.6-10.3) 11/27/17 06:20 Total Bilirubin 0.2 mg/dL (0.3-1.0) L 11/27/17 06:20 AST 10 U/L (13-39) L 11/27/17 06:20 ALT 6 U/L (7-52) L 11/27/17 06:20 Alkaline Phosphatase 45 U/L (34-104) 11/27/17 06:20 Ammonia 47 umol/L (16-53) 11/26/17 06:25 Creatine Kinase 113 U/L (30-223) 11/23/17 19:05 Troponin I < 0.01 ng/mL (0.01-0.05) L 11/23/17 19:05 B-Natriuretic Peptide 848.0 pg/mL (5.0-100.0) H 11/25/17 04:45 Total Protein 7.7 gm/dL (6.0-8.3) 11/27/17 06:20 Albumin 2.9 gm/dL (4.2-5.5) L 11/27/17 06:20 Globulin 4.8 gm/dL 11/27/17 06:20 Albumin/Globulin Ratio 0.6 (1.0-1.8) L 11/27/17 06:20 Triglycerides 68 mg/dL (<150) 11/23/17 19:05 Cholesterol 147 mg/dL (<200) 11/23/17 19:05 LDL Cholesterol Direct 98 mg/dL (75-193) 11/23/17 19:05 HDL Cholesterol 36 mg/dL (23-92) 11/23/17 19:05 Vitamin B12 740 pg/mL (232-1245) 11/26/17 04:50 Folic Acid 14.9 ng/mL (>3.0) 11/26/17 04:50 Free T4 1.08 ng/dL (0.82-1.77) 11/26/17 04:50 TSH 0.97 uIU/ml (0.34-5.60) 11/26/17 04:50 Stool Occult Blood NEGATIVE (NEGATIVE) 11/27/17 14:00 Urine Opiates Screen NEGATIVE (NEGATIVE) 11/24/17 15:00 Urine Methadone Screen NEGATIVE (NEGATIVE) 11/24/17 15:00 Ur Barbiturates Screen NEGATIVE (NEGATIVE) 11/24/17 15:00 Ur Tricyclics Screen NEGATIVE (NEGATIVE) 11/24/17 15:00 Ur Phencyclidine Scrn NEGATIVE (NEGATIVE) 11/24/17 15:00 Amphetamines Screen NEGATIVE (NEGATIVE) 11/24/17 15:00 U Methamphetamines Scrn NEGATIVE (NEGATIVE) 11/24/17 15:00 U Benzodiazepines Scrn POSITIVE (NEGATIVE) H 11/24/17 15:00 U Cocaine Metab Screen NEGATIVE (NEGATIVE) 11/24/17 15:00 U Cannabinoids Screen NEGATIVE (NEGATIVE) 11/24/17 15:00 Ethyl Alcohol < 10 mg/dL (0-10) 11/25/17 04:45 Blood Type A POSITIVE 11/26/17 11:45 - Physical Exam Vitals and I&O: Vital Signs Temp 98.6 F 11/30/17 04:00 Pulse 56 11/30/17 04:00 Resp 18 11/30/17 04:00 BP 100/61 11/30/17 04:00 Pulse Ox 96 11/30/17 04:00 Intake & Output 11/29/17 11/30/17 11/30/17 18:59 06:59 18:59 Intake Total 820 Balance 820 Weight (lbs) 63.503 kg 63.56 kg Intake: Oral 820 Other: # Voids 3 4 # Bowel Movements 2 0 Weight Source Bedscale Bedscale Active Medications: Current Medications [place] Oil/[place] Balsam/Trypsin (Venelex) 1 appl TP DAILY MOISES Stop: 01/24/18 08:59 Last Admin: 11/29/17 08:13 Dose: 1 appl Chlordiazepoxide (Librium) 5 mg PO DAILY MOISES; Protocol Stop: 01/24/18 18:29 Last Admin: 11/29/17 08:12 Dose: 5 mg Dextrose/Sodium Chloride (D5-0.9%Ns) 1,000 mls @ 75 mls/hr IV .[id number] MOISES Stop: 01/23/18 05:59 Last Admin: 11/27/17 23:18 Dose: 75 mls/hr Lactobacillus Rhamnosus (Culturelle 15b) 1 each PO DAILY MOISES Stop: 01/29/18 08:59 Lorazepam (Ativan) 1 mg IVP Q4HR PRN; Protocol PRN Reason: Agitation Stop: 01/24/18 11:37 Last Admin: 11/30/17 00:20 Dose: 1 mg Miscellaneous (Probiotic Screen) 1 ea MC PRN PRN PRN Reason: PROTOCOL Stop: 01/28/18 10:14 Pantoprazole Sodium (Protonix) 40 mg IVP DAILY MOISES Stop: 01/23/18 08:59 Last Admin: 11/29/17 08:12 Dose: 40 mg General: Alert, No acute distress HEENT: Atraumatic, PERRLA, EOMI Neck: Supple, no JVD Cardiovascular: Regular rate, Normal S1, Normal S2 Lungs: Other (rales) Abdomen: Bowel sounds, Soft Extremities: no Clubbing, no Cyanosis, no Edema Neurological: Normal gait, Normal speech Assessment/Plan - Problem List Patient Problems: All Active Problems ALTERED MENTAL STATUS WITH OLD WOUNDS (Acute) - Assessment Assessment: Current Active Problems Problem Status Onset ALTERED MENTAL STATUS WITH OLD WOUNDS Acute ALOC improved ETOH abuse alcohol withdrawal ... on Librium leukoctosis now resolved anemia hb 8.2 possible sepsis pna improved. blood culture negative elevated BNP will order cardiac consult hypotensive improved hepatic encephalopathy improved ... off lactulose - Plan Plan: dc zosyn repeat CBC,CMP,lactic acid, BNP this AM chest xray d5NS swallow eval repeat ETOH level this AM CBC add lactulose add librium ECHO social work case manager consult longterm placement. Nutritional Asmnt/Malnutr-PDOC - Dietary Evaluation Malnutrition Findings (Please click <Entered> for more info): Nutritional Asmnt/Malnutrition Start: 11/25/17 17: 20 Text: Status: Complete Freq: Protocol: Document 11/25/17 17:20 DILAN (Rec: 11/25/17 17:36 [facility] [email or web address]) Nutritional Asmnt/Malnutrition Patient General Information Nutritional Screening Moderate Risk Consult Diagnosis ALOC, possible PNA aspiration, ETOH Pertinent Medical Hx/Surgical Hx HTN, dyslipidemia, dementia, Subjective Information Consult received for multiple wounds. Pt seen lying in bed at time of visit, awake and alert, on banana bag. Oral diet started from lunch today. Pt stated he was hungry. Per EMR, pt consumed 100% of lunch . Current Diet Order/ Nutrition Support [facility] soft ground Pertinent Medications D5-0.9%ns, banana bag, protonix, piperacillin Pertinent Labs 11/25 na 134, Cl 108, glucose 104, Ca 8.1, alb 2.5 Nutritional Hx/Data Height 1.68 m Height (Calculated Centimeters) 167.6 Current Weight (lbs) 58.967 kg Weight (Calculated Kilograms) 59.0 Weight (Calculated Grams) 60861.0 [place] Body Weight 142 Body Mass Index (BMI) 20.9 Weight Status Approriate GI Symptoms GI Symptoms None Last BM none Difficult in: None Skin Integrity/Comment: scars to left shoulder, left forehead and left foot skin tear to left upper back Current %PO Good (75-100%) Estimated Nutritional Goals BEE in Kcals: Using Current wt Calories/Kcals/Kg 27-32 Kcals Calculated 8724-5959 Protein: Using Current wt Protein g/k-1.2 Protein Calculated 59-71 Fluid: ml 1593-1888ml (1ml/kcal) Nutritional Problem 1. Problem Problem altered nutrition related labs Etiology electrolytes imbalance Signs/Symptoms: na 134, Cl 108, Ca 8.1 Malnutrition Alert Is there a minimum of two criteria No selected? Query Text:Check all the applicable criteria. A minimum of two criteria are recommended for diagnosis of either severe or non-severe malnutrition. Malnutrition Related to Morbid Obesity Malnutrition related to morbid obesity No Intervention/Recommendation Comments 1. Continue with current diet as ordered. 2. Monitor PO intake, wt, labs and skin integrity 3. F/U as moderate risk in 3-5 days, 11/28-11/30 Expected Outcomes/Goals Expected Outcomes/Goals 1. PO intake to meet at least 75% of nutritional needs. 2. Wt stability, skin to remain intact, labs to approach WNL.
[2017-11-30] MEDS: Lactobacillus Rhamnosus GG 15 Billion CFU CAP.SPRINK PO SCH (08:45)
--- NOTE | 2017-11-30 10:32 | Progress Notes ---
DATE: 11/30/2017 IDENTIFYING INFORMATION: The patient is 62 years old male. HISTORY OF PRESENT ILLNESS: The patient apparently was admitted on 11/23/2017. He was found unresponsive in a public transportation. Following this, the patient was brought to the hospital and the patient was here for an evaluation. The patient has a history of hypertension, hyperlipidemia, dementia and alcohol intoxication. The patient himself was a poor historian. He believes that he is in a camp and that this is Tuesday. In reality, it is Tuesday, unable to tell me the date ____ unable to give information, though he told me he was seen by a psychiatrist before, but no prior suicide attempt, but he was not a reliable historian. [place] He denies any intent to harm himself or anybody. He was very slow to respond and taking time to collect his thoughts. The patient has been treated for alcohol intoxication withdrawal with a history of dementia. PAST PSYCHIATRIC HISTORY: The patient reported that he was seen by psychiatrist many times, but he was unable to tell me why. He denies prior suicide attempt. He gave me vague answers about it, but then he said no. He denies any auditory or visual hallucinations. When asked about use of alcohol and drugs, he said he used to, but he would not tell me that he was using any alcohol. MEDICAL HISTORY: The patient is with history of hyperlipidemia, bradycardia, hypertension. He is unable to tell if he has any allergies. He is on Librium for detoxification as well as Ativan. The patient is also on pantoprazole. He has wound care. FAMILY AND SOCIAL HISTORY: The patient is single, never , no children, but took a long time to tell me that though he is not reliable, unable to tell what he did for work, unable to tell me there is any family psychiatric disorders, suicide or substance abuse. Long and short term is poor. Unable to tell his age or date of or why he is here or any history. His insight about his illness is poor. Judgment is poor. He denies any auditory or visual or paranoia. Denies any intent to harm himself or anybody. He believes that he sleeps well, eats well. However, all this is an unreliable information. IMPRESSION: Chronic alcohol intoxication withdrawal, possible dementia. MEDICAL DIAGNOSES: As per medical doctor recommend to continue detox and we do not know about any allergy. I would refrain from giving him to now any new medications to help with his dementia may be. I will continue to follow the patient. Thank you very much for allowing me to participate in the care of this most interesting gentleman. JOB# [id number]
[2017-11-30] MEDS: Venelex 60gm Tube TP SCH (11:45)
--- NOTE | 2017-11-30 13:48 | Infectious Disease Prog Note ---
Infectious Disease Subjective - Review of Systems Service Date: 11/30/17 Subjective: Feeling better. Comfortable, calm. Communicates well now. No fever.. Infectious Disease Objective - Results Result Diagrams: 11/27/17 06:20 11/27/17 06:20 Recent Labs: Laboratory Last Values WBC 6.7 Th/cmm (4.8-10.8) 11/27/17 06:20 RBC 3.34 Mil/cmm (4.30-5.70) L 11/27/17 06:20 Hgb 8.2 gm/dL (12-16) L 11/27/17 06:20 Hct 25.1 % (41.0-60) L 11/27/17 06:20 MCV 74.9 fl (80-99) L 11/27/17 06:20 MCH 24.6 pg (26.0-30.0) L 11/27/17 06:20 MCHC Differential 32.8 pg (28.0-36.0) 11/27/17 06:20 RDW 16.1 % (11.5-20.0) 11/27/17 06:20 Plt Count 421 Th/cmm (150-400) H 11/27/17 06:20 MPV 7.7 fl 11/27/17 06:20 Add Manual Diff YES 11/27/17 06:20 Neutrophils % 63.2 % (40.0-80.0) 11/26/17 04:50 Band Neutrophils % 0 % (0-10) 11/27/17 06:20 Lymphocytes % 22.1 % (20.0-50.0) 11/26/17 04:50 Monocytes % 7.2 % (2.0-10.0) 11/26/17 04:50 Eosinophils % 6.8 % (0.0-5.0) H 11/26/17 04:50 Basophils % 0.7 % (0.0-2.0) 11/26/17 04:50 Neutrophils (Manual) 65 % (40-80) 11/27/17 06:20 Lymphocytes 23 % (20-50) 11/27/17 06:20 Monocytes 4 % (2-10) 11/27/17 06:20 Eosinophils 8 % (0-5) H 11/27/17 06:20 Basophils 0 % (0-3) 11/27/17 06:20 Microcytosis 2+ 11/27/17 06:20 ESR 127 mm/hr (0-20) H 11/26/17 04:50 PT 11.3 SECONDS (9.5-11.5) 11/23/17 19:05 INR 1.09 (0.5-1.4) 11/23/17 19:05 Sodium 136 mEq/L (136-145) 11/27/17 06:20 Potassium 3.7 mEq/L (3.5-5.1) 11/27/17 06:20 Chloride 108 mEq/L (98-107) H 11/27/17 06:20 Carbon Dioxide 22.1 mEq/L (21.0-31.0) 11/27/17 06:20 Anion Gap 9.6 (7.0-16.0) 11/27/17 06:20 BUN 8 mg/dL (7-25) 11/27/17 06:20 Creatinine 0.8 mg/dL (0.7-1.3) 11/27/17 06:20 Est GFR ( Amer) > 60.0 ml/min (>90) 11/27/17 06:20 Est GFR (Non-Af Amer) > 60.0 ml/min 11/27/17 06:20 BUN/Creatinine Ratio 10.0 11/27/17 06:20 Glucose 104 mg/dL (70-105) 11/27/17 06:20 POC Glucose 84 MG/DL (70 - 105) 11/24/17 00:22 Whole Bld Lactic Acid 1.72 mmol/L (0.60-1.99) 11/24/17 05:00 Calcium 8.7 mg/dL (8.6-10.3) 11/27/17 06:20 Total Bilirubin 0.2 mg/dL (0.3-1.0) L 11/27/17 06:20 AST 10 U/L (13-39) L 11/27/17 06:20 ALT 6 U/L (7-52) L 11/27/17 06:20 Alkaline Phosphatase 45 U/L (34-104) 11/27/17 06:20 Ammonia 47 umol/L (16-53) 11/26/17 06:25 Creatine Kinase 113 U/L (30-223) 11/23/17 19:05 Troponin I < 0.01 ng/mL (0.01-0.05) L 11/23/17 19:05 B-Natriuretic Peptide 848.0 pg/mL (5.0-100.0) H 11/25/17 04:45 Total Protein 7.7 gm/dL (6.0-8.3) 11/27/17 06:20 Albumin 2.9 gm/dL (4.2-5.5) L 11/27/17 06:20 Globulin 4.8 gm/dL 11/27/17 06:20 Albumin/Globulin Ratio 0.6 (1.0-1.8) L 11/27/17 06:20 Triglycerides 68 mg/dL (<150) 11/23/17 19:05 Cholesterol 147 mg/dL (<200) 11/23/17 19:05 LDL Cholesterol Direct 98 mg/dL (75-193) 11/23/17 19:05 HDL Cholesterol 36 mg/dL (23-92) 11/23/17 19:05 Vitamin B12 740 pg/mL (232-1245) 11/26/17 04:50 Folic Acid 14.9 ng/mL (>3.0) 11/26/17 04:50 Free T4 1.08 ng/dL (0.82-1.77) 11/26/17 04:50 TSH 0.97 uIU/ml (0.34-5.60) 11/26/17 04:50 Stool Occult Blood NEGATIVE (NEGATIVE) 11/27/17 14:00 Urine Opiates Screen NEGATIVE (NEGATIVE) 11/24/17 15:00 Urine Methadone Screen NEGATIVE (NEGATIVE) 11/24/17 15:00 Ur Barbiturates Screen NEGATIVE (NEGATIVE) 11/24/17 15:00 Ur Tricyclics Screen NEGATIVE (NEGATIVE) 11/24/17 15:00 Ur Phencyclidine Scrn NEGATIVE (NEGATIVE) 11/24/17 15:00 Amphetamines Screen NEGATIVE (NEGATIVE) 11/24/17 15:00 U Methamphetamines Scrn NEGATIVE (NEGATIVE) 11/24/17 15:00 U Benzodiazepines Scrn POSITIVE (NEGATIVE) H 11/24/17 15:00 U Cocaine Metab Screen NEGATIVE (NEGATIVE) 11/24/17 15:00 U Cannabinoids Screen NEGATIVE (NEGATIVE) 11/24/17 15:00 Ethyl Alcohol < 10 mg/dL (0-10) 11/25/17 04:45 Blood Type A POSITIVE 11/26/17 11:45 - Physical Exam Vitals and I&O: Vital Signs Temp 97.8 F 11/30/17 11:18 Pulse 76 11/30/17 11:18 Resp 18 11/30/17 11:18 BP 112/72 11/30/17 11:18 Pulse Ox 100 11/30/17 11:18 Intake & Output 11/29/17 11/30/17 11/30/17 18:59 06:59 18:59 Intake Total 820 Balance 820 Weight (lbs) 63.503 kg 63.56 kg Intake: Oral 820 Other: # Voids 3 4 # Bowel Movements 2 0 Weight Source Bedscale Bedscale Active Medications: Current Medications [place] Oil/[place] Balsam/Trypsin (Venelex) 1 appl TP DAILY MOISES Stop: 01/24/18 08:59 Last Admin: 11/30/17 11:45 Dose: 1 appl Chlordiazepoxide (Librium) 5 mg PO DAILY MOISES; Protocol Stop: 01/24/18 18:29 Last Admin: 11/30/17 08:45 Dose: 5 mg Lactobacillus Rhamnosus (Culturelle 15b) 1 each PO DAILY MOISES Stop: 01/29/18 08:59 Last Admin: 11/30/17 08:45 Dose: 1 each Lorazepam (Ativan) 1 mg IVP Q4HR PRN; Protocol PRN Reason: Agitation Stop: 01/24/18 11:37 Last Admin: 11/30/17 00:20 Dose: 1 mg Miscellaneous (Probiotic Screen) 1 ea MC PRN PRN PRN Reason: PROTOCOL Stop: 01/28/18 10:14 Pantoprazole Sodium (Protonix) 40 mg IVP DAILY MOISES Stop: 01/23/18 08:59 Last Admin: 11/30/17 10:26 Dose: 40 mg General: no acute distress, cachectic HEENT: atraumatic, normocephalic, PERRLA Neck: supple, no thyromegaly Cardiovascular: S1S2, regular Lungs: clear to auscultation bilaterally, clear to percussion Abdomen: soft, no tender Extremities: no cyanosis, no clubbing, no edema Neurological: awake, alert, oriented Skin: intact Infectious Disease Assmt/Plan - Problem List Patient Problems: All Active Problems ALTERED MENTAL STATUS WITH OLD WOUNDS (Acute) - Assessment Assessment: 1. Altered mental status due to alcohol abuse. 2. Leukocytosis or sepsis versus secondary aspiration pneumonia. Improved. 3. Laceration wound on left eyebrow/face. 4. Alcohol abuse. - Plan Plan: Continue Zosyn, it can be changed to levaquin po and flagyl po for 6 more days. Nutritional Asmnt/Malnutr-PDOC - Dietary Evaluation Malnutrition Findings (Please click <Entered> for more info): Nutritional Asmnt/Malnutrition Start: 11/25/17 17: 20 Text: Status: Complete Freq: Protocol: Document 11/25/17 17:20 CONNOR (Rec: 11/25/17 17:36 CONNOR [email or web address]) Nutritional Asmnt/Malnutrition Patient General Information Nutritional Screening Moderate Risk Consult Diagnosis ALOC, possible PNA aspiration, ETOH Pertinent Medical Hx/Surgical Hx HTN, dyslipidemia, dementia, Subjective Information Consult received for multiple wounds. Pt seen lying in bed at time of visit, awake and alert, on banana bag. Oral diet started from lunch today. Pt stated he was hungry. Per EMR, pt consumed 100% of lunch . Current Diet Order/ Nutrition Support [facility] soft ground Pertinent Medications D5-0.9%ns, banana bag, protonix, piperacillin Pertinent Labs 11/25 na 134, Cl 108, glucose 104, Ca 8.1, alb 2.5 Nutritional Hx/Data Height 1.68 m Height (Calculated Centimeters) 167.6 Current Weight (lbs) 58.967 kg Weight (Calculated Kilograms) 59.0 Weight (Calculated Grams) 50011.0 [place] Body Weight 142 Body Mass Index (BMI) 20.9 Weight Status Approriate GI Symptoms GI Symptoms None Last BM none Difficult in: None Skin Integrity/Comment: scars to left shoulder, left forehead and left foot skin tear to left upper back Current %PO Good (75-100%) Estimated Nutritional Goals BEE in Kcals: Using Current wt Calories/Kcals/Kg 27-32 Kcals Calculated 9343-3858 Protein: Using Current wt Protein g/k-1.2 Protein Calculated 59-71 Fluid: ml 1593-1888ml (1ml/kcal) Nutritional Problem 1. Problem Problem altered nutrition related labs Etiology electrolytes imbalance Signs/Symptoms: na 134, Cl 108, Ca 8.1 Malnutrition Alert Is there a minimum of two criteria No selected? Query Text:Check all the applicable criteria. A minimum of two criteria are recommended for diagnosis of either severe or non-severe malnutrition. Malnutrition Related to Morbid Obesity Malnutrition related to morbid obesity No Intervention/Recommendation Comments 1. Continue with current diet as ordered. 2. Monitor PO intake, wt, labs and skin integrity 3. F/U as moderate risk in 3-5 days, 11/28-11/30 Expected Outcomes/Goals Expected Outcomes/Goals 1. PO intake to meet at least 75% of nutritional needs. 2. Wt stability, skin to remain intact, labs to approach WNL.
[2017-12-01] MEDS ORDERED: Permethrin 1% Rinse 60 mL Bottle TP ONE ×2 (07:37→19:20)
--- NOTE | 2017-12-01 08:08 | General Progress Note ---
Subjective - Review of Systems Service Date: 12/01/17 Subjective: Patient is more awake and alert afebrile but confused. no new changes. bp better. EF 58%. diarrhea improved. Found to have head lice Objective - Results Result Diagrams: 11/27/17 06:20 11/27/17 06:20 Recent Labs: Laboratory Last Values WBC 6.7 Th/cmm (4.8-10.8) 11/27/17 06:20 RBC 3.34 Mil/cmm (4.30-5.70) L 11/27/17 06:20 Hgb 8.2 gm/dL (12-16) L 11/27/17 06:20 Hct 25.1 % (41.0-60) L 11/27/17 06:20 MCV 74.9 fl (80-99) L 11/27/17 06:20 MCH 24.6 pg (26.0-30.0) L 11/27/17 06:20 MCHC Differential 32.8 pg (28.0-36.0) 11/27/17 06:20 RDW 16.1 % (11.5-20.0) 11/27/17 06:20 Plt Count 421 Th/cmm (150-400) H 11/27/17 06:20 MPV 7.7 fl 11/27/17 06:20 Add Manual Diff YES 11/27/17 06:20 Neutrophils % 63.2 % (40.0-80.0) 11/26/17 04:50 Band Neutrophils % 0 % (0-10) 11/27/17 06:20 Lymphocytes % 22.1 % (20.0-50.0) 11/26/17 04:50 Monocytes % 7.2 % (2.0-10.0) 11/26/17 04:50 Eosinophils % 6.8 % (0.0-5.0) H 11/26/17 04:50 Basophils % 0.7 % (0.0-2.0) 11/26/17 04:50 Neutrophils (Manual) 65 % (40-80) 11/27/17 06:20 Lymphocytes 23 % (20-50) 11/27/17 06:20 Monocytes 4 % (2-10) 11/27/17 06:20 Eosinophils 8 % (0-5) H 11/27/17 06:20 Basophils 0 % (0-3) 11/27/17 06:20 Microcytosis 2+ 11/27/17 06:20 ESR 127 mm/hr (0-20) H 11/26/17 04:50 PT 11.3 SECONDS (9.5-11.5) 11/23/17 19:05 INR 1.09 (0.5-1.4) 11/23/17 19:05 Sodium 136 mEq/L (136-145) 11/27/17 06:20 Potassium 3.7 mEq/L (3.5-5.1) 11/27/17 06:20 Chloride 108 mEq/L (98-107) H 11/27/17 06:20 Carbon Dioxide 22.1 mEq/L (21.0-31.0) 11/27/17 06:20 Anion Gap 9.6 (7.0-16.0) 11/27/17 06:20 BUN 8 mg/dL (7-25) 11/27/17 06:20 Creatinine 0.8 mg/dL (0.7-1.3) 11/27/17 06:20 Est GFR ( Amer) > 60.0 ml/min (>90) 11/27/17 06:20 Est GFR (Non-Af Amer) > 60.0 ml/min 11/27/17 06:20 BUN/Creatinine Ratio 10.0 11/27/17 06:20 Glucose 104 mg/dL (70-105) 11/27/17 06:20 POC Glucose 84 MG/DL (70 - 105) 11/24/17 00:22 Whole Bld Lactic Acid 1.72 mmol/L (0.60-1.99) 11/24/17 05:00 Calcium 8.7 mg/dL (8.6-10.3) 11/27/17 06:20 Total Bilirubin 0.2 mg/dL (0.3-1.0) L 11/27/17 06:20 AST 10 U/L (13-39) L 11/27/17 06:20 ALT 6 U/L (7-52) L 11/27/17 06:20 Alkaline Phosphatase 45 U/L (34-104) 11/27/17 06:20 Ammonia 47 umol/L (16-53) 11/26/17 06:25 Creatine Kinase 113 U/L (30-223) 11/23/17 19:05 Troponin I < 0.01 ng/mL (0.01-0.05) L 11/23/17 19:05 B-Natriuretic Peptide 848.0 pg/mL (5.0-100.0) H 11/25/17 04:45 Total Protein 7.7 gm/dL (6.0-8.3) 11/27/17 06:20 Albumin 2.9 gm/dL (4.2-5.5) L 11/27/17 06:20 Globulin 4.8 gm/dL 11/27/17 06:20 Albumin/Globulin Ratio 0.6 (1.0-1.8) L 11/27/17 06:20 Triglycerides 68 mg/dL (<150) 11/23/17 19:05 Cholesterol 147 mg/dL (<200) 11/23/17 19:05 LDL Cholesterol Direct 98 mg/dL (75-193) 11/23/17 19:05 HDL Cholesterol 36 mg/dL (23-92) 11/23/17 19:05 Vitamin B12 740 pg/mL (232-1245) 11/26/17 04:50 Folic Acid 14.9 ng/mL (>3.0) 11/26/17 04:50 Free T4 1.08 ng/dL (0.82-1.77) 11/26/17 04:50 TSH 0.97 uIU/ml (0.34-5.60) 11/26/17 04:50 Stool Occult Blood NEGATIVE (NEGATIVE) 11/27/17 14:00 Urine Opiates Screen NEGATIVE (NEGATIVE) 11/24/17 15:00 Urine Methadone Screen NEGATIVE (NEGATIVE) 11/24/17 15:00 Ur Barbiturates Screen NEGATIVE (NEGATIVE) 11/24/17 15:00 Ur Tricyclics Screen NEGATIVE (NEGATIVE) 11/24/17 15:00 Ur Phencyclidine Scrn NEGATIVE (NEGATIVE) 11/24/17 15:00 Amphetamines Screen NEGATIVE (NEGATIVE) 11/24/17 15:00 U Methamphetamines Scrn NEGATIVE (NEGATIVE) 11/24/17 15:00 U Benzodiazepines Scrn POSITIVE (NEGATIVE) H 11/24/17 15:00 U Cocaine Metab Screen NEGATIVE (NEGATIVE) 11/24/17 15:00 U Cannabinoids Screen NEGATIVE (NEGATIVE) 11/24/17 15:00 Ethyl Alcohol < 10 mg/dL (0-10) 11/25/17 04:45 Blood Type A POSITIVE 11/26/17 11:45 - Physical Exam Vitals and I&O: Vital Signs Temp 97.1 F 12/01/17 04:00 Pulse 64 12/01/17 04:00 Resp 17 12/01/17 04:00 BP 105/67 12/01/17 04:00 Pulse Ox 100 12/01/17 04:00 Intake & Output 11/30/17 12/01/17 12/01/17 18:59 06:59 18:59 Intake Total 350 Balance 350 Weight (lbs) 63.56 kg 63.588 kg Intake: Oral 350 Other: # Voids 4 4 # Bowel Movements 0 0 Weight Source Bedscale Bedscale Active Medications: Current Medications [place] Oil/[place] Balsam/Trypsin (Venelex) 1 appl TP DAILY MOISES Stop: 01/24/18 08:59 Last Admin: 11/30/17 11:45 Dose: 1 appl Chlordiazepoxide (Librium) 5 mg PO DAILY MOISES; Protocol Stop: 01/24/18 18:29 Last Admin: 11/30/17 08:45 Dose: 5 mg Lactobacillus Rhamnosus (Culturelle 15b) 1 each PO DAILY MOISES Stop: 01/29/18 08:59 Last Admin: 11/30/17 08:45 Dose: 1 each Lorazepam (Ativan) 1 mg IVP Q4HR PRN; Protocol PRN Reason: Agitation Stop: 01/24/18 11:37 Last Admin: 11/30/17 15:49 Dose: 1 mg Miscellaneous (Probiotic Screen) 1 ea MC PRN PRN PRN Reason: PROTOCOL Stop: 01/28/18 10:14 Pantoprazole Sodium (Protonix) 40 mg IVP DAILY MOISES Stop: 01/23/18 08:59 Last Admin: 11/30/17 10:26 Dose: 40 mg General: Alert, No acute distress HEENT: Atraumatic, PERRLA, EOMI Neck: Supple, no JVD Cardiovascular: Regular rate, Normal S1, Normal S2 Lungs: Other (rales) Abdomen: Bowel sounds, Soft Extremities: no Clubbing, no Cyanosis, no Edema Neurological: Normal gait, Normal speech Assessment/Plan - Problem List Patient Problems: All Active Problems ALTERED MENTAL STATUS WITH OLD WOUNDS (Acute) - Assessment Assessment: Current Active Problems Problem Status Onset ALTERED MENTAL STATUS WITH OLD WOUNDS Acute ALOC improved ETOH abuse alcohol withdrawal ... on Librium leukoctosis now resolved anemia hb 8.2 possible sepsis pna improved. blood culture negative elevated BNP will order cardiac consult hypotensive improved hepatic encephalopathy improved ... off lactulose Head Lice - Plan Plan: dc zosyn repeat CBC,CMP,lactic acid, BNP this AM chest xray d5NS swallow eval repeat ETOH level this AM CBC add lactulose add librium ECHO social work faculty member consult half-way placement. Permethrin topical PT eval Nutritional Asmnt/Malnutr-PDOC - Dietary Evaluation Malnutrition Findings (Please click <Entered> for more info): Nutritional Asmnt/Malnutrition Start: 11/25/17 17: 20 Text: Status: Complete Freq: Protocol: Document 11/25/17 17:20 LCHENG (Rec: 11/25/17 17:36 [email or web address]) Nutritional Asmnt/Malnutrition Patient General Information Nutritional Screening Moderate Risk Consult Diagnosis ALOC, possible PNA aspiration, ETOH Pertinent Medical Hx/Surgical Hx HTN, dyslipidemia, dementia, Subjective Information Consult received for multiple wounds. Pt seen lying in bed at time of visit, awake and alert, on banana bag. Oral diet started from lunch today. Pt stated he was hungry. Per EMR, pt consumed 100% of lunch . Current Diet Order/ Nutrition Support [facility] soft ground Pertinent Medications D5-0.9%ns, banana bag, protonix, piperacillin Pertinent Labs 11/25 na 134, Cl 108, glucose 104, Ca 8.1, alb 2.5 Nutritional Hx/Data Height 1.68 m Height (Calculated Centimeters) 167.6 Current Weight (lbs) 58.967 kg Weight (Calculated Kilograms) 59.0 Weight (Calculated Grams) 77947.0 [place] Body Weight 142 Body Mass Index (BMI) 20.9 Weight Status Approriate GI Symptoms GI Symptoms None Last BM none Difficult in: None Skin Integrity/Comment: scars to left shoulder, left forehead and left foot skin tear to left upper back Current %PO Good (75-100%) Estimated Nutritional Goals BEE in Kcals: Using Current wt Calories/Kcals/Kg 27-32 Kcals Calculated 6274-5119 Protein: Using Current wt Protein g/k-1.2 Protein Calculated 59-71 Fluid: ml 1593-1888ml (1ml/kcal) Nutritional Problem 1. Problem Problem altered nutrition related labs Etiology electrolytes imbalance Signs/Symptoms: na 134, Cl 108, Ca 8.1 Malnutrition Alert Is there a minimum of two criteria No selected? Query Text:Check all the applicable criteria. A minimum of two criteria are recommended for diagnosis of either severe or non-severe malnutrition. Malnutrition Related to Morbid Obesity Malnutrition related to morbid obesity No Intervention/Recommendation Comments 1. Continue with current diet as ordered. 2. Monitor PO intake, wt, labs and skin integrity 3. F/U as moderate risk in 3-5 days, 11/28-11/30 Expected Outcomes/Goals Expected Outcomes/Goals 1. PO intake to meet at least 75% of nutritional needs. 2. Wt stability, skin to remain intact, labs to approach WNL.
[2017-12-01] MEDS: Lactobacillus Rhamnosus GG 15 Billion CFU CAP.SPRINK PO SCH (08:59)
[2017-12-01] MEDS: Venelex 60gm Tube TP SCH (09:00)
--- NOTE | 2017-12-01 13:42 | Infectious Disease Prog Note ---
Infectious Disease Subjective - Review of Systems Service Date: 12/01/17 Subjective: Feeling better. Comfortable, calm. Communicates well now. No fever.. Infectious Disease Objective - Results Result Diagrams: 11/27/17 06:20 11/27/17 06:20 Recent Labs: Laboratory Last Values WBC 6.7 Th/cmm (4.8-10.8) 11/27/17 06:20 RBC 3.34 Mil/cmm (4.30-5.70) L 11/27/17 06:20 Hgb 8.2 gm/dL (12-16) L 11/27/17 06:20 Hct 25.1 % (41.0-60) L 11/27/17 06:20 MCV 74.9 fl (80-99) L 11/27/17 06:20 MCH 24.6 pg (26.0-30.0) L 11/27/17 06:20 MCHC Differential 32.8 pg (28.0-36.0) 11/27/17 06:20 RDW 16.1 % (11.5-20.0) 11/27/17 06:20 Plt Count 421 Th/cmm (150-400) H 11/27/17 06:20 MPV 7.7 fl 11/27/17 06:20 Add Manual Diff YES 11/27/17 06:20 Neutrophils % 63.2 % (40.0-80.0) 11/26/17 04:50 Band Neutrophils % 0 % (0-10) 11/27/17 06:20 Lymphocytes % 22.1 % (20.0-50.0) 11/26/17 04:50 Monocytes % 7.2 % (2.0-10.0) 11/26/17 04:50 Eosinophils % 6.8 % (0.0-5.0) H 11/26/17 04:50 Basophils % 0.7 % (0.0-2.0) 11/26/17 04:50 Neutrophils (Manual) 65 % (40-80) 11/27/17 06:20 Lymphocytes 23 % (20-50) 11/27/17 06:20 Monocytes 4 % (2-10) 11/27/17 06:20 Eosinophils 8 % (0-5) H 11/27/17 06:20 Basophils 0 % (0-3) 11/27/17 06:20 Microcytosis 2+ 11/27/17 06:20 ESR 127 mm/hr (0-20) H 11/26/17 04:50 PT 11.3 SECONDS (9.5-11.5) 11/23/17 19:05 INR 1.09 (0.5-1.4) 11/23/17 19:05 Sodium 136 mEq/L (136-145) 11/27/17 06:20 Potassium 3.7 mEq/L (3.5-5.1) 11/27/17 06:20 Chloride 108 mEq/L (98-107) H 11/27/17 06:20 Carbon Dioxide 22.1 mEq/L (21.0-31.0) 11/27/17 06:20 Anion Gap 9.6 (7.0-16.0) 11/27/17 06:20 BUN 8 mg/dL (7-25) 11/27/17 06:20 Creatinine 0.8 mg/dL (0.7-1.3) 11/27/17 06:20 Est GFR ( Amer) > 60.0 ml/min (>90) 11/27/17 06:20 Est GFR (Non-Af Amer) > 60.0 ml/min 11/27/17 06:20 BUN/Creatinine Ratio 10.0 11/27/17 06:20 Glucose 104 mg/dL (70-105) 11/27/17 06:20 POC Glucose 84 MG/DL (70 - 105) 11/24/17 00:22 Whole Bld Lactic Acid 1.72 mmol/L (0.60-1.99) 11/24/17 05:00 Calcium 8.7 mg/dL (8.6-10.3) 11/27/17 06:20 Total Bilirubin 0.2 mg/dL (0.3-1.0) L 11/27/17 06:20 AST 10 U/L (13-39) L 11/27/17 06:20 ALT 6 U/L (7-52) L 11/27/17 06:20 Alkaline Phosphatase 45 U/L (34-104) 11/27/17 06:20 Ammonia 47 umol/L (16-53) 11/26/17 06:25 Creatine Kinase 113 U/L (30-223) 11/23/17 19:05 Troponin I < 0.01 ng/mL (0.01-0.05) L 11/23/17 19:05 B-Natriuretic Peptide 848.0 pg/mL (5.0-100.0) H 11/25/17 04:45 Total Protein 7.7 gm/dL (6.0-8.3) 11/27/17 06:20 Albumin 2.9 gm/dL (4.2-5.5) L 11/27/17 06:20 Globulin 4.8 gm/dL 11/27/17 06:20 Albumin/Globulin Ratio 0.6 (1.0-1.8) L 11/27/17 06:20 Triglycerides 68 mg/dL (<150) 11/23/17 19:05 Cholesterol 147 mg/dL (<200) 11/23/17 19:05 LDL Cholesterol Direct 98 mg/dL (75-193) 11/23/17 19:05 HDL Cholesterol 36 mg/dL (23-92) 11/23/17 19:05 Vitamin B12 740 pg/mL (232-1245) 11/26/17 04:50 Folic Acid 14.9 ng/mL (>3.0) 11/26/17 04:50 Free T4 1.08 ng/dL (0.82-1.77) 11/26/17 04:50 TSH 0.97 uIU/ml (0.34-5.60) 11/26/17 04:50 Stool Occult Blood NEGATIVE (NEGATIVE) 11/27/17 14:00 Urine Opiates Screen NEGATIVE (NEGATIVE) 11/24/17 15:00 Urine Methadone Screen NEGATIVE (NEGATIVE) 11/24/17 15:00 Ur Barbiturates Screen NEGATIVE (NEGATIVE) 11/24/17 15:00 Ur Tricyclics Screen NEGATIVE (NEGATIVE) 11/24/17 15:00 Ur Phencyclidine Scrn NEGATIVE (NEGATIVE) 11/24/17 15:00 Amphetamines Screen NEGATIVE (NEGATIVE) 11/24/17 15:00 U Methamphetamines Scrn NEGATIVE (NEGATIVE) 11/24/17 15:00 U Benzodiazepines Scrn POSITIVE (NEGATIVE) H 11/24/17 15:00 U Cocaine Metab Screen NEGATIVE (NEGATIVE) 11/24/17 15:00 U Cannabinoids Screen NEGATIVE (NEGATIVE) 11/24/17 15:00 Ethyl Alcohol < 10 mg/dL (0-10) 11/25/17 04:45 Blood Type A POSITIVE 11/26/17 11:45 - Physical Exam Vitals and I&O: Vital Signs Temp 97.4 F 12/01/17 12:00 Pulse 65 12/01/17 12:00 Resp 17 12/01/17 12:00 BP 123/72 12/01/17 12:00 Pulse Ox 99 12/01/17 12:00 Intake & Output 11/30/17 12/01/17 12/01/17 18:59 06:59 18:59 Intake Total 350 Balance 350 Weight (lbs) 63.56 kg 63.588 kg Intake: Oral 350 Other: # Voids 4 4 # Bowel Movements 0 0 Weight Source Bedscale Bedscale Active Medications: Current Medications [place] Oil/[place] Balsam/Trypsin (Venelex) 1 appl TP DAILY MOISES Stop: 01/24/18 08:59 Last Admin: 12/01/17 09:00 Dose: 1 appl Chlordiazepoxide (Librium) 5 mg PO DAILY MOISES; Protocol Stop: 01/24/18 18:29 Last Admin: 12/01/17 08:59 Dose: 5 mg Lactobacillus Rhamnosus (Culturelle 15b) 1 each PO DAILY MOISES Stop: 01/29/18 08:59 Last Admin: 12/01/17 08:59 Dose: 1 each Lorazepam (Ativan) 1 mg IVP Q4HR PRN; Protocol PRN Reason: Agitation Stop: 01/24/18 11:37 Last Admin: 11/30/17 15:49 Dose: 1 mg Miscellaneous (Probiotic Screen) 1 ea MC PRN PRN PRN Reason: PROTOCOL Stop: 01/28/18 10:14 Pantoprazole Sodium (Protonix) 40 mg IVP DAILY MOISES Stop: 01/23/18 08:59 Last Admin: 12/01/17 08:59 Dose: 40 mg General: no acute distress, cachectic HEENT: atraumatic, normocephalic, PERRLA, EOMI Neck: supple, no thyromegaly Cardiovascular: S1S2, regular Lungs: clear to auscultation bilaterally, clear to percussion Abdomen: soft, no tender, no distended Extremities: no cyanosis, no clubbing, no edema Neurological: awake, alert, oriented Skin: intact Infectious Disease Assmt/Plan - Problem List Patient Problems: All Active Problems ALTERED MENTAL STATUS WITH OLD WOUNDS (Acute) - Assessment Assessment: 1. Altered mental status due to alcohol abuse. 2. Leukocytosis or sepsis versus secondary aspiration pneumonia. Improved. 3. Laceration wound on left eyebrow/face. 4. Alcohol abuse. - Plan Plan: off antibiotics. I will s/o please call me as needed. thank you. Nutritional Asmnt/Malnutr-PDOC - Dietary Evaluation Malnutrition Findings (Please click <Entered> for more info): Nutritional Asmnt/Malnutrition Start: 11/25/17 17: 20 Text: Status: Complete Freq: Protocol: Document 11/25/17 17:20 CONNOR (Rec: 11/25/17 17:36 CONNOR [email or web address]) Nutritional Asmnt/Malnutrition Patient General Information Nutritional Screening Moderate Risk Consult Diagnosis ALOC, possible PNA aspiration, ETOH Pertinent Medical Hx/Surgical Hx HTN, dyslipidemia, dementia, Subjective Information Consult received for multiple wounds. Pt seen lying in bed at time of visit, awake and alert, on banana bag. Oral diet started from lunch today. Pt stated he was hungry. Per EMR, pt consumed 100% of lunch . Current Diet Order/ Nutrition Support [facility] soft ground Pertinent Medications D5-0.9%ns, banana bag, protonix, piperacillin Pertinent Labs 11/25 na 134, Cl 108, glucose 104, Ca 8.1, alb 2.5 Nutritional Hx/Data Height 1.68 m Height (Calculated Centimeters) 167.6 Current Weight (lbs) 58.967 kg Weight (Calculated Kilograms) 59.0 Weight (Calculated Grams) 50411.0 [place] Body Weight 142 Body Mass Index (BMI) 20.9 Weight Status Approriate GI Symptoms GI Symptoms None Last BM none Difficult in: None Skin Integrity/Comment: scars to left shoulder, left forehead and left foot skin tear to left upper back Current %PO Good (75-100%) Estimated Nutritional Goals BEE in Kcals: Using Current wt Calories/Kcals/Kg 27-32 Kcals Calculated 4150-6968 Protein: Using Current wt Protein g/k-1.2 Protein Calculated 59-71 Fluid: ml 1593-1888ml (1ml/kcal) Nutritional Problem 1. Problem Problem altered nutrition related labs Etiology electrolytes imbalance Signs/Symptoms: na 134, Cl 108, Ca 8.1 Malnutrition Alert Is there a minimum of two criteria No selected? Query Text:Check all the applicable criteria. A minimum of two criteria are recommended for diagnosis of either severe or non-severe malnutrition. Malnutrition Related to Morbid Obesity Malnutrition related to morbid obesity No Intervention/Recommendation Comments 1. Continue with current diet as ordered. 2. Monitor PO intake, wt, labs and skin integrity 3. F/U as moderate risk in 3-5 days, 11/28-11/30 Expected Outcomes/Goals Expected Outcomes/Goals 1. PO intake to meet at least 75% of nutritional needs. 2. Wt stability, skin to remain intact, labs to approach WNL.
--- NOTE | 2017-12-01 22:09 | Progress Notes ---
DATE: 12/01/2017 Case was discussed with staff of the patient, reviewed records. The patient is still unpredictable, impulsive, unable to carry on a conversation. Continues to have poor insight. Continues to be unable to make appropriate treatment and he is detoxing from alcohol. No side effects with the medication, no sedation, no nausea. Still unable to tell us if he is allergic to any medication and will continue outpatient group therapy, milieu therapy, adjust medication as needed. JOB# [id number]
--- NOTE | 2017-12-02 08:09 | General Progress Note ---
Subjective - Review of Systems Service Date: 12/02/17 Subjective: Patient is more awake and alert afebrile but confused. no new changes. bp better. EF 58%. diarrhea improved. Found to have head lice VS T 98.1 P 70 R 18 BP 120/80 Objective - Results Result Diagrams: 11/27/17 06:20 11/27/17 06:20 Recent Labs: Laboratory Last Values WBC 6.7 Th/cmm (4.8-10.8) 11/27/17 06:20 RBC 3.34 Mil/cmm (4.30-5.70) L 11/27/17 06:20 Hgb 8.2 gm/dL (12-16) L 11/27/17 06:20 Hct 25.1 % (41.0-60) L 11/27/17 06:20 MCV 74.9 fl (80-99) L 11/27/17 06:20 MCH 24.6 pg (26.0-30.0) L 11/27/17 06:20 MCHC Differential 32.8 pg (28.0-36.0) 11/27/17 06:20 RDW 16.1 % (11.5-20.0) 11/27/17 06:20 Plt Count 421 Th/cmm (150-400) H 11/27/17 06:20 MPV 7.7 fl 11/27/17 06:20 Add Manual Diff YES 11/27/17 06:20 Neutrophils % 63.2 % (40.0-80.0) 11/26/17 04:50 Band Neutrophils % 0 % (0-10) 11/27/17 06:20 Lymphocytes % 22.1 % (20.0-50.0) 11/26/17 04:50 Monocytes % 7.2 % (2.0-10.0) 11/26/17 04:50 Eosinophils % 6.8 % (0.0-5.0) H 11/26/17 04:50 Basophils % 0.7 % (0.0-2.0) 11/26/17 04:50 Neutrophils (Manual) 65 % (40-80) 11/27/17 06:20 Lymphocytes 23 % (20-50) 11/27/17 06:20 Monocytes 4 % (2-10) 11/27/17 06:20 Eosinophils 8 % (0-5) H 11/27/17 06:20 Basophils 0 % (0-3) 11/27/17 06:20 Microcytosis 2+ 11/27/17 06:20 ESR 127 mm/hr (0-20) H 11/26/17 04:50 PT 11.3 SECONDS (9.5-11.5) 11/23/17 19:05 INR 1.09 (0.5-1.4) 11/23/17 19:05 Sodium 136 mEq/L (136-145) 11/27/17 06:20 Potassium 3.7 mEq/L (3.5-5.1) 11/27/17 06:20 Chloride 108 mEq/L (98-107) H 11/27/17 06:20 Carbon Dioxide 22.1 mEq/L (21.0-31.0) 11/27/17 06:20 Anion Gap 9.6 (7.0-16.0) 11/27/17 06:20 BUN 8 mg/dL (7-25) 11/27/17 06:20 Creatinine 0.8 mg/dL (0.7-1.3) 11/27/17 06:20 Est GFR ( Amer) > 60.0 ml/min (>90) 11/27/17 06:20 Est GFR (Non-Af Amer) > 60.0 ml/min 11/27/17 06:20 BUN/Creatinine Ratio 10.0 11/27/17 06:20 Glucose 104 mg/dL (70-105) 11/27/17 06:20 POC Glucose 84 MG/DL (70 - 105) 11/24/17 00:22 Whole Bld Lactic Acid 1.72 mmol/L (0.60-1.99) 11/24/17 05:00 Calcium 8.7 mg/dL (8.6-10.3) 11/27/17 06:20 Total Bilirubin 0.2 mg/dL (0.3-1.0) L 11/27/17 06:20 AST 10 U/L (13-39) L 11/27/17 06:20 ALT 6 U/L (7-52) L 11/27/17 06:20 Alkaline Phosphatase 45 U/L (34-104) 11/27/17 06:20 Ammonia 47 umol/L (16-53) 11/26/17 06:25 Creatine Kinase 113 U/L (30-223) 11/23/17 19:05 Troponin I < 0.01 ng/mL (0.01-0.05) L 11/23/17 19:05 B-Natriuretic Peptide 848.0 pg/mL (5.0-100.0) H 11/25/17 04:45 Total Protein 7.7 gm/dL (6.0-8.3) 11/27/17 06:20 Albumin 2.9 gm/dL (4.2-5.5) L 11/27/17 06:20 Globulin 4.8 gm/dL 11/27/17 06:20 Albumin/Globulin Ratio 0.6 (1.0-1.8) L 11/27/17 06:20 Triglycerides 68 mg/dL (<150) 11/23/17 19:05 Cholesterol 147 mg/dL (<200) 11/23/17 19:05 LDL Cholesterol Direct 98 mg/dL (75-193) 11/23/17 19:05 HDL Cholesterol 36 mg/dL (23-92) 11/23/17 19:05 Vitamin B12 740 pg/mL (232-1245) 11/26/17 04:50 Folic Acid 14.9 ng/mL (>3.0) 11/26/17 04:50 Free T4 1.08 ng/dL (0.82-1.77) 11/26/17 04:50 TSH 0.97 uIU/ml (0.34-5.60) 11/26/17 04:50 Stool Occult Blood NEGATIVE (NEGATIVE) 11/27/17 14:00 Urine Opiates Screen NEGATIVE (NEGATIVE) 11/24/17 15:00 Urine Methadone Screen NEGATIVE (NEGATIVE) 11/24/17 15:00 Ur Barbiturates Screen NEGATIVE (NEGATIVE) 11/24/17 15:00 Ur Tricyclics Screen NEGATIVE (NEGATIVE) 11/24/17 15:00 Ur Phencyclidine Scrn NEGATIVE (NEGATIVE) 11/24/17 15:00 Amphetamines Screen NEGATIVE (NEGATIVE) 11/24/17 15:00 U Methamphetamines Scrn NEGATIVE (NEGATIVE) 11/24/17 15:00 U Benzodiazepines Scrn POSITIVE (NEGATIVE) H 11/24/17 15:00 U Cocaine Metab Screen NEGATIVE (NEGATIVE) 11/24/17 15:00 U Cannabinoids Screen NEGATIVE (NEGATIVE) 11/24/17 15:00 Ethyl Alcohol < 10 mg/dL (0-10) 11/25/17 04:45 Blood Type A POSITIVE 11/26/17 11:45 - Physical Exam Vitals and I&O: Vital Signs Temp 98.1 F 12/01/17 16:10 Pulse 70 12/01/17 16:10 Resp 20 12/01/17 20:00 BP 120/80 12/01/17 16:10 Pulse Ox 99 12/01/17 16:10 Intake & Output 12/01/17 12/02/17 12/02/17 18:59 06:59 18:59 Intake Total 1800 Balance 1800 Weight (lbs) 63.588 kg 63.049 kg Intake: Oral 1800 Other: # Voids 4 # Bowel Movements 1 Weight Source Bedscale Bedscale Active Medications: Current Medications [place] Oil/[place] Balsam/Trypsin (Venelex) 1 appl TP DAILY MOISES Stop: 01/24/18 08:59 Last Admin: 12/01/17 09:00 Dose: 1 appl Chlordiazepoxide (Librium) 5 mg PO DAILY MOISES; Protocol Stop: 01/24/18 18:29 Last Admin: 12/01/17 08:59 Dose: 5 mg Lactobacillus Rhamnosus (Culturelle 15b) 1 each PO DAILY MOISES Stop: 01/29/18 08:59 Last Admin: 12/01/17 08:59 Dose: 1 each Lorazepam (Ativan) 1 mg IVP Q4HR PRN; Protocol PRN Reason: Agitation Stop: 01/24/18 11:37 Last Admin: 12/01/17 16:10 Dose: 1 mg Miscellaneous (Probiotic Screen) 1 ea MC PRN PRN PRN Reason: PROTOCOL Stop: 01/28/18 10:14 Pantoprazole Sodium (Protonix) 40 mg IVP DAILY MOISES Stop: 01/23/18 08:59 Last Admin: 12/01/17 08:59 Dose: 40 mg General: Alert, No acute distress HEENT: Atraumatic, PERRLA, EOMI Neck: Supple, no JVD Cardiovascular: Regular rate, Normal S1, Normal S2 Lungs: Other (rales) Abdomen: Bowel sounds, Soft Extremities: no Clubbing, no Cyanosis, no Edema Neurological: Normal gait, Normal speech Assessment/Plan - Problem List Patient Problems: All Active Problems ALTERED MENTAL STATUS WITH OLD WOUNDS (Acute) - Assessment Assessment: Current Active Problems Problem Status Onset ALTERED MENTAL STATUS WITH OLD WOUNDS Acute ALOC improved ETOH abuse alcohol withdrawal ... on Librium leukoctosis now resolved anemia hb 8.2 possible sepsis pna improved. blood culture negative elevated BNP will order cardiac consult hypotensive improved hepatic encephalopathy improved ... off lactulose Head Lice - Plan Plan: dc zosyn repeat CBC,CMP,lactic acid, BNP this AM chest xray d5NS swallow eval repeat ETOH level this AM CBC add lactulose add librium ECHO geriatric social worker consult senior care placement. Permethrin topical PT eval Nutritional Asmnt/Malnutr-PDOC - Dietary Evaluation Malnutrition Findings (Please click <Entered> for more info): Nutritional Asmnt/Malnutrition Start: 11/25/17 17: 20 Text: Status: Complete Freq: Protocol: Document 11/25/17 17:20 LCDILANG (Rec: 11/25/17 17:36 [email or web address]) Nutritional Asmnt/Malnutrition Patient General Information Nutritional Screening Moderate Risk Consult Diagnosis ALOC, possible PNA aspiration, ETOH Pertinent Medical Hx/Surgical Hx HTN, dyslipidemia, dementia, Subjective Information Consult received for multiple wounds. Pt seen lying in bed at time of visit, awake and alert, on banana bag. Oral diet started from lunch today. Pt stated he was hungry. Per EMR, pt consumed 100% of lunch . Current Diet Order/ Nutrition Support [facility] soft ground Pertinent Medications D5-0.9%ns, banana bag, protonix, piperacillin Pertinent Labs 11/25 na 134, Cl 108, glucose 104, Ca 8.1, alb 2.5 Nutritional Hx/Data Height 1.68 m Height (Calculated Centimeters) 167.6 Current Weight (lbs) 58.967 kg Weight (Calculated Kilograms) 59.0 Weight (Calculated Grams) 84368.0 [place] Body Weight 142 Body Mass Index (BMI) 20.9 Weight Status Approriate GI Symptoms GI Symptoms None Last BM none Difficult in: None Skin Integrity/Comment: scars to left shoulder, left forehead and left foot skin tear to left upper back Current %PO Good (75-100%) Estimated Nutritional Goals BEE in Kcals: Using Current wt Calories/Kcals/Kg 27-32 Kcals Calculated 1302-7342 Protein: Using Current wt Protein g/k-1.2 Protein Calculated 59-71 Fluid: ml 1593-1888ml (1ml/kcal) Nutritional Problem 1. Problem Problem altered nutrition related labs Etiology electrolytes imbalance Signs/Symptoms: na 134, Cl 108, Ca 8.1 Malnutrition Alert Is there a minimum of two criteria No selected? Query Text:Check all the applicable criteria. A minimum of two criteria are recommended for diagnosis of either severe or non-severe malnutrition. Malnutrition Related to Morbid Obesity Malnutrition related to morbid obesity No Intervention/Recommendation Comments 1. Continue with current diet as ordered. 2. Monitor PO intake, wt, labs and skin integrity 3. F/U as moderate risk in 3-5 days, 11/28-11/30 Expected Outcomes/Goals Expected Outcomes/Goals 1. PO intake to meet at least 75% of nutritional needs. 2. Wt stability, skin to remain intact, labs to approach WNL.
[2017-12-02] MEDS: Lactobacillus Rhamnosus GG 15 Billion CFU CAP.SPRINK PO SCH (08:57)
[2017-12-02] MEDS: Venelex 60gm Tube TP SCH (08:58)
--- NOTE | 2017-12-03 01:57 | Progress Notes ---
DATE: 12/02/2017 Case was discussed with staff of the patient, reviewed records. The patient continues to be very confused and has been detoxed. He is unable to tell me the date. He knew this is Tuesday. He was feeding himself. He continues to be unpredictable, unable to get from him any information such as his allergies unobtainable. He continues to be withdrawing from alcohol, but he is able to eat and sleep well. He denies any current intent to harm self or anybody. Denies any auditory or visual hallucination; however, he is not a reliable historian. Thank you very much for allowing me to participate in the care of this most interesting lady. JOB# [id number]
--- NOTE | 2017-12-03 05:57 | General Progress Note ---
Subjective - Review of Systems Service Date: 12/03/17 Subjective: Patient is more awake and alert afebrile but confused. no new changes. bp better. EF 58%. diarrhea improved. Found to have head lice VS T 97.6 P 78 R 20 BP 128/73 Objective - Results Result Diagrams: 11/27/17 06:20 11/27/17 06:20 Recent Labs: Laboratory Last Values WBC 6.7 Th/cmm (4.8-10.8) 11/27/17 06:20 RBC 3.34 Mil/cmm (4.30-5.70) L 11/27/17 06:20 Hgb 8.2 gm/dL (12-16) L 11/27/17 06:20 Hct 25.1 % (41.0-60) L 11/27/17 06:20 MCV 74.9 fl (80-99) L 11/27/17 06:20 MCH 24.6 pg (26.0-30.0) L 11/27/17 06:20 MCHC Differential 32.8 pg (28.0-36.0) 11/27/17 06:20 RDW 16.1 % (11.5-20.0) 11/27/17 06:20 Plt Count 421 Th/cmm (150-400) H 11/27/17 06:20 MPV 7.7 fl 11/27/17 06:20 Add Manual Diff YES 11/27/17 06:20 Neutrophils % 63.2 % (40.0-80.0) 11/26/17 04:50 Band Neutrophils % 0 % (0-10) 11/27/17 06:20 Lymphocytes % 22.1 % (20.0-50.0) 11/26/17 04:50 Monocytes % 7.2 % (2.0-10.0) 11/26/17 04:50 Eosinophils % 6.8 % (0.0-5.0) H 11/26/17 04:50 Basophils % 0.7 % (0.0-2.0) 11/26/17 04:50 Neutrophils (Manual) 65 % (40-80) 11/27/17 06:20 Lymphocytes 23 % (20-50) 11/27/17 06:20 Monocytes 4 % (2-10) 11/27/17 06:20 Eosinophils 8 % (0-5) H 11/27/17 06:20 Basophils 0 % (0-3) 11/27/17 06:20 Microcytosis 2+ 11/27/17 06:20 ESR 127 mm/hr (0-20) H 11/26/17 04:50 PT 11.3 SECONDS (9.5-11.5) 11/23/17 19:05 INR 1.09 (0.5-1.4) 11/23/17 19:05 Sodium 136 mEq/L (136-145) 11/27/17 06:20 Potassium 3.7 mEq/L (3.5-5.1) 11/27/17 06:20 Chloride 108 mEq/L (98-107) H 11/27/17 06:20 Carbon Dioxide 22.1 mEq/L (21.0-31.0) 11/27/17 06:20 Anion Gap 9.6 (7.0-16.0) 11/27/17 06:20 BUN 8 mg/dL (7-25) 11/27/17 06:20 Creatinine 0.8 mg/dL (0.7-1.3) 11/27/17 06:20 Est GFR ( Amer) > 60.0 ml/min (>90) 11/27/17 06:20 Est GFR (Non-Af Amer) > 60.0 ml/min 11/27/17 06:20 BUN/Creatinine Ratio 10.0 11/27/17 06:20 Glucose 104 mg/dL (70-105) 11/27/17 06:20 POC Glucose 84 MG/DL (70 - 105) 11/24/17 00:22 Whole Bld Lactic Acid 1.72 mmol/L (0.60-1.99) 11/24/17 05:00 Calcium 8.7 mg/dL (8.6-10.3) 11/27/17 06:20 Total Bilirubin 0.2 mg/dL (0.3-1.0) L 11/27/17 06:20 AST 10 U/L (13-39) L 11/27/17 06:20 ALT 6 U/L (7-52) L 11/27/17 06:20 Alkaline Phosphatase 45 U/L (34-104) 11/27/17 06:20 Ammonia 47 umol/L (16-53) 11/26/17 06:25 Creatine Kinase 113 U/L (30-223) 11/23/17 19:05 Troponin I < 0.01 ng/mL (0.01-0.05) L 11/23/17 19:05 B-Natriuretic Peptide 848.0 pg/mL (5.0-100.0) H 11/25/17 04:45 Total Protein 7.7 gm/dL (6.0-8.3) 11/27/17 06:20 Albumin 2.9 gm/dL (4.2-5.5) L 11/27/17 06:20 Globulin 4.8 gm/dL 11/27/17 06:20 Albumin/Globulin Ratio 0.6 (1.0-1.8) L 11/27/17 06:20 Triglycerides 68 mg/dL (<150) 11/23/17 19:05 Cholesterol 147 mg/dL (<200) 11/23/17 19:05 LDL Cholesterol Direct 98 mg/dL (75-193) 11/23/17 19:05 HDL Cholesterol 36 mg/dL (23-92) 11/23/17 19:05 Vitamin B12 740 pg/mL (232-1245) 11/26/17 04:50 Folic Acid 14.9 ng/mL (>3.0) 11/26/17 04:50 Free T4 1.08 ng/dL (0.82-1.77) 11/26/17 04:50 TSH 0.97 uIU/ml (0.34-5.60) 11/26/17 04:50 Stool Occult Blood NEGATIVE (NEGATIVE) 11/27/17 14:00 Urine Opiates Screen NEGATIVE (NEGATIVE) 11/24/17 15:00 Urine Methadone Screen NEGATIVE (NEGATIVE) 11/24/17 15:00 Ur Barbiturates Screen NEGATIVE (NEGATIVE) 11/24/17 15:00 Ur Tricyclics Screen NEGATIVE (NEGATIVE) 11/24/17 15:00 Ur Phencyclidine Scrn NEGATIVE (NEGATIVE) 11/24/17 15:00 Amphetamines Screen NEGATIVE (NEGATIVE) 11/24/17 15:00 U Methamphetamines Scrn NEGATIVE (NEGATIVE) 11/24/17 15:00 U Benzodiazepines Scrn POSITIVE (NEGATIVE) H 11/24/17 15:00 U Cocaine Metab Screen NEGATIVE (NEGATIVE) 11/24/17 15:00 U Cannabinoids Screen NEGATIVE (NEGATIVE) 11/24/17 15:00 Ethyl Alcohol < 10 mg/dL (0-10) 11/25/17 04:45 Blood Type A POSITIVE 11/26/17 11:45 - Physical Exam Vitals and I&O: Vital Signs Temp 97.6 F 12/02/17 16:00 Pulse 78 12/02/17 16:00 Resp 19 12/02/17 20:00 BP 128/73 12/02/17 16:00 Pulse Ox 98 12/02/17 16:00 Intake & Output 12/02/17 12/02/17 12/03/17 06:59 18:59 06:59 Intake Total 400 Balance 400 Weight (lbs) 63.049 kg 64.41 kg Intake: Oral 400 Other: # Voids 3 Weight Source Bedscale Bedscale Active Medications: Current Medications [place] Oil/[place] Balsam/Trypsin (Venelex) 1 appl TP DAILY MOISES Stop: 01/24/18 08:59 Last Admin: 12/02/17 08:58 Dose: 1 appl Chlordiazepoxide (Librium) 5 mg PO DAILY MOISES; Protocol Stop: 01/24/18 18:29 Last Admin: 12/02/17 08:57 Dose: 5 mg Lactobacillus Rhamnosus (Culturelle 15b) 1 each PO DAILY MOISES Stop: 01/29/18 08:59 Last Admin: 12/02/17 08:57 Dose: 1 each Lorazepam (Ativan) 1 mg IVP Q4HR PRN; Protocol PRN Reason: Agitation Stop: 01/24/18 11:37 Last Admin: 12/01/17 16:10 Dose: 1 mg Miscellaneous (Probiotic Screen) 1 ea MC PRN PRN PRN Reason: PROTOCOL Stop: 01/28/18 10:14 Pantoprazole Sodium (Protonix) 40 mg IVP DAILY MOISES Stop: 01/23/18 08:59 Last Admin: 12/02/17 08:57 Dose: 40 mg General: Alert, No acute distress HEENT: Atraumatic, PERRLA, EOMI Neck: Supple, no JVD Cardiovascular: Regular rate, Normal S1, Normal S2 Lungs: Other (rales) Abdomen: Bowel sounds, Soft Extremities: no Clubbing, no Cyanosis, no Edema Neurological: Normal gait, Normal speech Assessment/Plan - Problem List Patient Problems: All Active Problems ALTERED MENTAL STATUS WITH OLD WOUNDS (Acute) - Assessment Assessment: Current Active Problems Problem Status Onset ALTERED MENTAL STATUS WITH OLD WOUNDS Acute ALOC improved ETOH abuse alcohol withdrawal ... on Librium leukoctosis now resolved anemia hb 8.2 possible sepsis pna improved. blood culture negative elevated BNP will order cardiac consult hypotensive improved hepatic encephalopathy improved ... off lactulose Head Lice - Plan Plan: dc zosyn repeat CBC,CMP,lactic acid, BNP this AM chest xray d5NS swallow eval repeat ETOH level this AM CBC add lactulose add librium ECHO social group worker consult [facility] placement. Permethrin topical PT eval Nutritional Asmnt/Malnutr-PDOC - Dietary Evaluation Malnutrition Findings (Please click <Entered> for more info): Nutritional Asmnt/Malnutrition Start: 11/25/17 17: 20 Text: Status: Complete Freq: Protocol: Document 11/25/17 17:20 LCHENG (Rec: 11/25/17 17:36 LCDILANG [email or web address]) Nutritional Asmnt/Malnutrition Patient General Information Nutritional Screening Moderate Risk Consult Diagnosis ALOC, possible PNA aspiration, ETOH Pertinent Medical Hx/Surgical Hx HTN, dyslipidemia, dementia, Subjective Information Consult received for multiple wounds. Pt seen lying in bed at time of visit, awake and alert, on banana bag. Oral diet started from lunch today. Pt stated he was hungry. Per EMR, pt consumed 100% of lunch . Current Diet Order/ Nutrition Support [facility] soft ground Pertinent Medications D5-0.9%ns, banana bag, protonix, piperacillin Pertinent Labs 11/25 na 134, Cl 108, glucose 104, Ca 8.1, alb 2.5 Nutritional Hx/Data Height 1.68 m Height (Calculated Centimeters) 167.6 Current Weight (lbs) 58.967 kg Weight (Calculated Kilograms) 59.0 Weight (Calculated Grams) 85875.0 [place] Body Weight 142 Body Mass Index (BMI) 20.9 Weight Status Approriate GI Symptoms GI Symptoms None Last BM none Difficult in: None Skin Integrity/Comment: scars to left shoulder, left forehead and left foot skin tear to left upper back Current %PO Good (75-100%) Estimated Nutritional Goals BEE in Kcals: Using Current wt Calories/Kcals/Kg 27-32 Kcals Calculated 3010-6505 Protein: Using Current wt Protein g/k-1.2 Protein Calculated 59-71 Fluid: ml 1593-1888ml (1ml/kcal) Nutritional Problem 1. Problem Problem altered nutrition related labs Etiology electrolytes imbalance Signs/Symptoms: na 134, Cl 108, Ca 8.1 Malnutrition Alert Is there a minimum of two criteria No selected? Query Text:Check all the applicable criteria. A minimum of two criteria are recommended for diagnosis of either severe or non-severe malnutrition. Malnutrition Related to Morbid Obesity Malnutrition related to morbid obesity No Intervention/Recommendation Comments 1. Continue with current diet as ordered. 2. Monitor PO intake, wt, labs and skin integrity 3. F/U as moderate risk in 3-5 days, 11/28-11/30 Expected Outcomes/Goals Expected Outcomes/Goals 1. PO intake to meet at least 75% of nutritional needs. 2. Wt stability, skin to remain intact, labs to approach WNL.
[2017-12-03] MEDS: Venelex 60gm Tube TP SCH (08:12)
[2017-12-03] MEDS: Lactobacillus Rhamnosus GG 15 Billion CFU CAP.SPRINK PO SCH (08:13)
--- NOTE | 2017-12-03 22:55 | Progress Notes ---
DATE: 12/03/2017 Case was discussed with staff of the patient, reviewed records. The patient continues to have a placement issue now. He is still confused, unable to make a safe plan for self-care. Continues to participate in meaningful conversation, smiling inappropriately at times. Unable to give me the date, where he is, why he is here. The staff report, they are looking for placement for this patient. He cannot take care of himself with his level of confusion, no side effects of the medication, no sedation, no nausea. Thank you very much for allowing me to participate in the care of this most interesting gentleman. JOB# [id number]
--- NOTE | 2017-12-04 06:06 | General Progress Note ---
Subjective - Review of Systems Service Date: 12/04/17 Subjective: Patient is more awake and alert afebrile but confused. no new changes. bp better. EF 58%. diarrhea improved. Found to have head lice VS T 97.2 P 61 R 17 BP 93/46 Objective - Results Result Diagrams: 11/27/17 06:20 11/27/17 06:20 Recent Labs: Laboratory Last Values WBC 6.7 Th/cmm (4.8-10.8) 11/27/17 06:20 RBC 3.34 Mil/cmm (4.30-5.70) L 11/27/17 06:20 Hgb 8.2 gm/dL (12-16) L 11/27/17 06:20 Hct 25.1 % (41.0-60) L 11/27/17 06:20 MCV 74.9 fl (80-99) L 11/27/17 06:20 MCH 24.6 pg (26.0-30.0) L 11/27/17 06:20 MCHC Differential 32.8 pg (28.0-36.0) 11/27/17 06:20 RDW 16.1 % (11.5-20.0) 11/27/17 06:20 Plt Count 421 Th/cmm (150-400) H 11/27/17 06:20 MPV 7.7 fl 11/27/17 06:20 Add Manual Diff YES 11/27/17 06:20 Neutrophils % 63.2 % (40.0-80.0) 11/26/17 04:50 Band Neutrophils % 0 % (0-10) 11/27/17 06:20 Lymphocytes % 22.1 % (20.0-50.0) 11/26/17 04:50 Monocytes % 7.2 % (2.0-10.0) 11/26/17 04:50 Eosinophils % 6.8 % (0.0-5.0) H 11/26/17 04:50 Basophils % 0.7 % (0.0-2.0) 11/26/17 04:50 Neutrophils (Manual) 65 % (40-80) 11/27/17 06:20 Lymphocytes 23 % (20-50) 11/27/17 06:20 Monocytes 4 % (2-10) 11/27/17 06:20 Eosinophils 8 % (0-5) H 11/27/17 06:20 Basophils 0 % (0-3) 11/27/17 06:20 Microcytosis 2+ 11/27/17 06:20 ESR 127 mm/hr (0-20) H 11/26/17 04:50 PT 11.3 SECONDS (9.5-11.5) 11/23/17 19:05 INR 1.09 (0.5-1.4) 11/23/17 19:05 Sodium 136 mEq/L (136-145) 11/27/17 06:20 Potassium 3.7 mEq/L (3.5-5.1) 11/27/17 06:20 Chloride 108 mEq/L (98-107) H 11/27/17 06:20 Carbon Dioxide 22.1 mEq/L (21.0-31.0) 11/27/17 06:20 Anion Gap 9.6 (7.0-16.0) 11/27/17 06:20 BUN 8 mg/dL (7-25) 11/27/17 06:20 Creatinine 0.8 mg/dL (0.7-1.3) 11/27/17 06:20 Est GFR ( Amer) > 60.0 ml/min (>90) 11/27/17 06:20 Est GFR (Non-Af Amer) > 60.0 ml/min 11/27/17 06:20 BUN/Creatinine Ratio 10.0 11/27/17 06:20 Glucose 104 mg/dL (70-105) 11/27/17 06:20 POC Glucose 84 MG/DL (70 - 105) 11/24/17 00:22 Whole Bld Lactic Acid 1.72 mmol/L (0.60-1.99) 11/24/17 05:00 Calcium 8.7 mg/dL (8.6-10.3) 11/27/17 06:20 Total Bilirubin 0.2 mg/dL (0.3-1.0) L 11/27/17 06:20 AST 10 U/L (13-39) L 11/27/17 06:20 ALT 6 U/L (7-52) L 11/27/17 06:20 Alkaline Phosphatase 45 U/L (34-104) 11/27/17 06:20 Ammonia 47 umol/L (16-53) 11/26/17 06:25 Creatine Kinase 113 U/L (30-223) 11/23/17 19:05 Troponin I < 0.01 ng/mL (0.01-0.05) L 11/23/17 19:05 B-Natriuretic Peptide 848.0 pg/mL (5.0-100.0) H 11/25/17 04:45 Total Protein 7.7 gm/dL (6.0-8.3) 11/27/17 06:20 Albumin 2.9 gm/dL (4.2-5.5) L 11/27/17 06:20 Globulin 4.8 gm/dL 11/27/17 06:20 Albumin/Globulin Ratio 0.6 (1.0-1.8) L 11/27/17 06:20 Triglycerides 68 mg/dL (<150) 11/23/17 19:05 Cholesterol 147 mg/dL (<200) 11/23/17 19:05 LDL Cholesterol Direct 98 mg/dL (75-193) 11/23/17 19:05 HDL Cholesterol 36 mg/dL (23-92) 11/23/17 19:05 Vitamin B12 740 pg/mL (232-1245) 11/26/17 04:50 Folic Acid 14.9 ng/mL (>3.0) 11/26/17 04:50 Free T4 1.08 ng/dL (0.82-1.77) 11/26/17 04:50 TSH 0.97 uIU/ml (0.34-5.60) 11/26/17 04:50 Stool Occult Blood NEGATIVE (NEGATIVE) 11/27/17 14:00 Urine Opiates Screen NEGATIVE (NEGATIVE) 11/24/17 15:00 Urine Methadone Screen NEGATIVE (NEGATIVE) 11/24/17 15:00 Ur Barbiturates Screen NEGATIVE (NEGATIVE) 11/24/17 15:00 Ur Tricyclics Screen NEGATIVE (NEGATIVE) 11/24/17 15:00 Ur Phencyclidine Scrn NEGATIVE (NEGATIVE) 11/24/17 15:00 Amphetamines Screen NEGATIVE (NEGATIVE) 11/24/17 15:00 U Methamphetamines Scrn NEGATIVE (NEGATIVE) 11/24/17 15:00 U Benzodiazepines Scrn POSITIVE (NEGATIVE) H 11/24/17 15:00 U Cocaine Metab Screen NEGATIVE (NEGATIVE) 11/24/17 15:00 U Cannabinoids Screen NEGATIVE (NEGATIVE) 11/24/17 15:00 Ethyl Alcohol < 10 mg/dL (0-10) 11/25/17 04:45 Blood Type A POSITIVE 11/26/17 11:45 - Physical Exam Vitals and I&O: Vital Signs Temp 97.2 F 12/04/17 04:00 Pulse 53 12/04/17 04:00 Resp 17 12/04/17 04:00 BP 93/46 12/04/17 04:00 Pulse Ox 99 12/04/17 04:00 Intake & Output 12/03/17 12/03/17 12/04/17 06:59 18:59 06:59 Intake Total 350 500 700 Balance 350 500 700 Weight (lbs) 61.961 kg 62.369 kg 63.191 kg Intake: Oral 350 500 700 Other: # Voids 3 4 3 # Bowel Movements 2 0 Weight Source Bedscale Bedscale Bedscale Active Medications: Current Medications [place] Oil/[place] Balsam/Trypsin (Venelex) 1 appl TP DAILY MOISES Stop: 01/24/18 08:59 Last Admin: 12/03/17 08:12 Dose: 1 appl Chlordiazepoxide (Librium) 5 mg PO DAILY MOISES; Protocol Stop: 01/24/18 18:29 Last Admin: 12/03/17 08:12 Dose: 5 mg Lactobacillus Rhamnosus (Culturelle 15b) 1 each PO DAILY MOISES Stop: 01/29/18 08:59 Last Admin: 12/03/17 08:13 Dose: 1 each Lorazepam (Ativan) 1 mg IVP Q4HR PRN; Protocol PRN Reason: Agitation Stop: 01/24/18 11:37 Last Admin: 12/01/17 16:10 Dose: 1 mg Miscellaneous (Probiotic Screen) 1 ea MC PRN PRN PRN Reason: PROTOCOL Stop: 01/28/18 10:14 Pantoprazole Sodium (Protonix) 40 mg IVP DAILY MOISES Stop: 01/23/18 08:59 Last Admin: 12/03/17 08:13 Dose: 40 mg General: Alert, No acute distress HEENT: Atraumatic, PERRLA, EOMI Neck: Supple, no JVD Cardiovascular: Regular rate, Normal S1, Normal S2 Lungs: Other (rales) Abdomen: Bowel sounds, Soft Extremities: no Clubbing, no Cyanosis, no Edema Neurological: Normal gait, Normal speech Assessment/Plan - Problem List Patient Problems: All Active Problems ALTERED MENTAL STATUS WITH OLD WOUNDS (Acute) - Assessment Assessment: Current Active Problems Problem Status Onset ALTERED MENTAL STATUS WITH OLD WOUNDS Acute ALOC improved ETOH abuse alcohol withdrawal ... on Librium leukoctosis now resolved anemia hb 8.2 possible sepsis pna improved. blood culture negative elevated BNP will order cardiac consult hypotensive improved hepatic encephalopathy improved ... off lactulose Head Lice - Plan Plan: dc zosyn repeat CBC,CMP,lactic acid, BNP this AM chest xray d5NS swallow eval repeat ETOH level this AM CBC add lactulose add librium ECHO social media content manager consult senior living placement. Permethrin topical PT eval Nutritional Asmnt/Malnutr-PDOC - Dietary Evaluation Malnutrition Findings (Please click <Entered> for more info): Nutritional Asmnt/Malnutrition Start: 11/25/17 17: 20 Text: Status: Complete Freq: Protocol: Document 11/25/17 17:20 LCDILANG (Rec: 11/25/17 17:36 [email or web address]) Nutritional Asmnt/Malnutrition Patient General Information Nutritional Screening Moderate Risk Consult Diagnosis ALOC, possible PNA aspiration, ETOH Pertinent Medical Hx/Surgical Hx HTN, dyslipidemia, dementia, Subjective Information Consult received for multiple wounds. Pt seen lying in bed at time of visit, awake and alert, on banana bag. Oral diet started from lunch today. Pt stated he was hungry. Per EMR, pt consumed 100% of lunch . Current Diet Order/ Nutrition Support [facility] soft ground Pertinent Medications D5-0.9%ns, banana bag, protonix, piperacillin Pertinent Labs 11/25 na 134, Cl 108, glucose 104, Ca 8.1, alb 2.5 Nutritional Hx/Data Height 1.68 m Height (Calculated Centimeters) 167.6 Current Weight (lbs) 58.967 kg Weight (Calculated Kilograms) 59.0 Weight (Calculated Grams) 59910.0 [place] Body Weight 142 Body Mass Index (BMI) 20.9 Weight Status Approriate GI Symptoms GI Symptoms None Last BM none Difficult in: None Skin Integrity/Comment: scars to left shoulder, left forehead and left foot skin tear to left upper back Current %PO Good (75-100%) Estimated Nutritional Goals BEE in Kcals: Using Current wt Calories/Kcals/Kg 27-32 Kcals Calculated 8107-6628 Protein: Using Current wt Protein g/k-1.2 Protein Calculated 59-71 Fluid: ml 1593-1888ml (1ml/kcal) Nutritional Problem 1. Problem Problem altered nutrition related labs Etiology electrolytes imbalance Signs/Symptoms: na 134, Cl 108, Ca 8.1 Malnutrition Alert Is there a minimum of two criteria No selected? Query Text:Check all the applicable criteria. A minimum of two criteria are recommended for diagnosis of either severe or non-severe malnutrition. Malnutrition Related to Morbid Obesity Malnutrition related to morbid obesity No Intervention/Recommendation Comments 1. Continue with current diet as ordered. 2. Monitor PO intake, wt, labs and skin integrity 3. F/U as moderate risk in 3-5 days, 11/28-11/30 Expected Outcomes/Goals Expected Outcomes/Goals 1. PO intake to meet at least 75% of nutritional needs. 2. Wt stability, skin to remain intact, labs to approach WNL.
[2017-12-04] MEDS: Venelex 60gm Tube TP SCH (09:51)
[2017-12-04] MEDS: Lactobacillus Rhamnosus GG 15 Billion CFU CAP.SPRINK PO SCH (09:51)
--- NOTE | 2017-12-04 18:26 | Progress Notes ---
DATE: 12/04/2017 Case was discussed with staff of the patient, reviewed records. The patient continues to be confused, unable to tell me the date, where he is, why he is here. Spine is an appropriate of time, he talk to his withdrawal from alcohol, though it seems like it is getting to an end, no side effects with the medication, no sedation, no nausea. The staff now is working on placement for this patient and we will continue outpatient group. Thank you very much for allowing me to participate in the care of this most interesting gentleman. JOB# [id number]
--- NOTE | 2017-12-05 08:17 | General Progress Note ---
Subjective - Review of Systems Service Date: 12/05/17 Subjective: Patient is more awake and alert afebrile but confused. no new changes. bp better. EF 58%. diarrhea improved. Found to have head lice. placement pending VS T 98.0 P 82 R 17 BP 100/69 Objective - Results Result Diagrams: 11/27/17 06:20 11/27/17 06:20 Recent Labs: Laboratory Last Values WBC 6.7 Th/cmm (4.8-10.8) 11/27/17 06:20 RBC 3.34 Mil/cmm (4.30-5.70) L 11/27/17 06:20 Hgb 8.2 gm/dL (12-16) L 11/27/17 06:20 Hct 25.1 % (41.0-60) L 11/27/17 06:20 MCV 74.9 fl (80-99) L 11/27/17 06:20 MCH 24.6 pg (26.0-30.0) L 11/27/17 06:20 MCHC Differential 32.8 pg (28.0-36.0) 11/27/17 06:20 RDW 16.1 % (11.5-20.0) 11/27/17 06:20 Plt Count 421 Th/cmm (150-400) H 11/27/17 06:20 MPV 7.7 fl 11/27/17 06:20 Add Manual Diff YES 11/27/17 06:20 Neutrophils % 63.2 % (40.0-80.0) 11/26/17 04:50 Band Neutrophils % 0 % (0-10) 11/27/17 06:20 Lymphocytes % 22.1 % (20.0-50.0) 11/26/17 04:50 Monocytes % 7.2 % (2.0-10.0) 11/26/17 04:50 Eosinophils % 6.8 % (0.0-5.0) H 11/26/17 04:50 Basophils % 0.7 % (0.0-2.0) 11/26/17 04:50 Neutrophils (Manual) 65 % (40-80) 11/27/17 06:20 Lymphocytes 23 % (20-50) 11/27/17 06:20 Monocytes 4 % (2-10) 11/27/17 06:20 Eosinophils 8 % (0-5) H 11/27/17 06:20 Basophils 0 % (0-3) 11/27/17 06:20 Microcytosis 2+ 11/27/17 06:20 ESR 127 mm/hr (0-20) H 11/26/17 04:50 PT 11.3 SECONDS (9.5-11.5) 11/23/17 19:05 INR 1.09 (0.5-1.4) 11/23/17 19:05 Sodium 136 mEq/L (136-145) 11/27/17 06:20 Potassium 3.7 mEq/L (3.5-5.1) 11/27/17 06:20 Chloride 108 mEq/L (98-107) H 11/27/17 06:20 Carbon Dioxide 22.1 mEq/L (21.0-31.0) 11/27/17 06:20 Anion Gap 9.6 (7.0-16.0) 11/27/17 06:20 BUN 8 mg/dL (7-25) 11/27/17 06:20 Creatinine 0.8 mg/dL (0.7-1.3) 11/27/17 06:20 Est GFR ( Amer) > 60.0 ml/min (>90) 11/27/17 06:20 Est GFR (Non-Af Amer) > 60.0 ml/min 11/27/17 06:20 BUN/Creatinine Ratio 10.0 11/27/17 06:20 Glucose 104 mg/dL (70-105) 11/27/17 06:20 POC Glucose 84 MG/DL (70 - 105) 11/24/17 00:22 Whole Bld Lactic Acid 1.72 mmol/L (0.60-1.99) 11/24/17 05:00 Calcium 8.7 mg/dL (8.6-10.3) 11/27/17 06:20 Total Bilirubin 0.2 mg/dL (0.3-1.0) L 11/27/17 06:20 AST 10 U/L (13-39) L 11/27/17 06:20 ALT 6 U/L (7-52) L 11/27/17 06:20 Alkaline Phosphatase 45 U/L (34-104) 11/27/17 06:20 Ammonia 47 umol/L (16-53) 11/26/17 06:25 Creatine Kinase 113 U/L (30-223) 11/23/17 19:05 Troponin I < 0.01 ng/mL (0.01-0.05) L 11/23/17 19:05 B-Natriuretic Peptide 848.0 pg/mL (5.0-100.0) H 11/25/17 04:45 Total Protein 7.7 gm/dL (6.0-8.3) 11/27/17 06:20 Albumin 2.9 gm/dL (4.2-5.5) L 11/27/17 06:20 Globulin 4.8 gm/dL 11/27/17 06:20 Albumin/Globulin Ratio 0.6 (1.0-1.8) L 11/27/17 06:20 Triglycerides 68 mg/dL (<150) 11/23/17 19:05 Cholesterol 147 mg/dL (<200) 11/23/17 19:05 LDL Cholesterol Direct 98 mg/dL (75-193) 11/23/17 19:05 HDL Cholesterol 36 mg/dL (23-92) 11/23/17 19:05 Vitamin B12 740 pg/mL (232-1245) 11/26/17 04:50 Folic Acid 14.9 ng/mL (>3.0) 11/26/17 04:50 Free T4 1.08 ng/dL (0.82-1.77) 11/26/17 04:50 TSH 0.97 uIU/ml (0.34-5.60) 11/26/17 04:50 Stool Occult Blood NEGATIVE (NEGATIVE) 11/27/17 14:00 Urine Opiates Screen NEGATIVE (NEGATIVE) 11/24/17 15:00 Urine Methadone Screen NEGATIVE (NEGATIVE) 11/24/17 15:00 Ur Barbiturates Screen NEGATIVE (NEGATIVE) 11/24/17 15:00 Ur Tricyclics Screen NEGATIVE (NEGATIVE) 11/24/17 15:00 Ur Phencyclidine Scrn NEGATIVE (NEGATIVE) 11/24/17 15:00 Amphetamines Screen NEGATIVE (NEGATIVE) 11/24/17 15:00 U Methamphetamines Scrn NEGATIVE (NEGATIVE) 11/24/17 15:00 U Benzodiazepines Scrn POSITIVE (NEGATIVE) H 11/24/17 15:00 U Cocaine Metab Screen NEGATIVE (NEGATIVE) 11/24/17 15:00 U Cannabinoids Screen NEGATIVE (NEGATIVE) 11/24/17 15:00 Ethyl Alcohol < 10 mg/dL (0-10) 11/25/17 04:45 Blood Type A POSITIVE 11/26/17 11:45 - Physical Exam Vitals and I&O: Vital Signs Temp 98.0 F 12/05/17 08:01 Pulse 82 12/05/17 08:01 Resp 17 12/05/17 08:01 BP 100/69 12/05/17 08:01 Pulse Ox 100 12/05/17 08:01 Intake & Output 12/04/17 12/05/17 12/05/17 18:59 06:59 18:59 Intake Total 1300 Balance 1300 Weight (lbs) 63.588 kg Intake: Oral 1300 Other: # Voids 3 # Bowel Movements 0 Weight Source Bedscale Active Medications: Current Medications [place] Oil/[place] Balsam/Trypsin (Venelex) 1 appl TP DAILY MOISES Stop: 01/24/18 08:59 Last Admin: 12/04/17 09:51 Dose: 1 appl Chlordiazepoxide (Librium) 5 mg PO DAILY MOISES; Protocol Stop: 01/24/18 18:29 Last Admin: 12/04/17 09:51 Dose: 5 mg Lactobacillus Rhamnosus (Culturelle 15b) 1 each PO DAILY MOISES Stop: 01/29/18 08:59 Last Admin: 12/04/17 09:51 Dose: 1 each Lorazepam (Ativan) 1 mg IVP Q4HR PRN; Protocol PRN Reason: Agitation Stop: 01/24/18 11:37 Last Admin: 12/01/17 16:10 Dose: 1 mg Miscellaneous (Probiotic Screen) 1 ea MC PRN PRN PRN Reason: PROTOCOL Stop: 01/28/18 10:14 General: Alert, No acute distress HEENT: Atraumatic, PERRLA, EOMI Neck: Supple, no JVD Cardiovascular: Regular rate, Normal S1, Normal S2 Lungs: Other (rales) Abdomen: Bowel sounds, Soft Extremities: no Clubbing, no Cyanosis, no Edema Neurological: Normal gait, Normal speech Assessment/Plan - Problem List Patient Problems: All Active Problems ALTERED MENTAL STATUS WITH OLD WOUNDS (Acute) - Assessment Assessment: Current Active Problems Problem Status Onset ALTERED MENTAL STATUS WITH OLD WOUNDS Acute ALOC improved ETOH abuse alcohol withdrawal ... on Librium leukoctosis now resolved anemia hb 8.2 possible sepsis pna improved. blood culture negative elevated BNP will order cardiac consult hypotensive improved hepatic encephalopathy improved ... off lactulose Head Lice awaiting placement - Plan Plan: dc zosyn repeat CBC,CMP,lactic acid, BNP this AM chest xray d5NS swallow eval repeat ETOH level this AM CBC add lactulose add librium ECHO social and human services assistant consult [facility] placement. Permethrin topical PT eval Nutritional Asmnt/Malnutr-PDOC - Dietary Evaluation Malnutrition Findings (Please click <Entered> for more info): Nutritional Asmnt/Malnutrition Start: 11/25/17 17: 20 Text: Status: Complete Freq: Protocol: Document 11/25/17 17:20 LCDILANG (Rec: 11/25/17 17:36 [email or web address]) Nutritional Asmnt/Malnutrition Patient General Information Nutritional Screening Moderate Risk Consult Diagnosis ALOC, possible PNA aspiration, ETOH Pertinent Medical Hx/Surgical Hx HTN, dyslipidemia, dementia, Subjective Information Consult received for multiple wounds. Pt seen lying in bed at time of visit, awake and alert, on banana bag. Oral diet started from lunch today. Pt stated he was hungry. Per EMR, pt consumed 100% of lunch . Current Diet Order/ Nutrition Support [facility] soft ground Pertinent Medications D5-0.9%ns, banana bag, protonix, piperacillin Pertinent Labs 11/25 na 134, Cl 108, glucose 104, Ca 8.1, alb 2.5 Nutritional Hx/Data Height 1.68 m Height (Calculated Centimeters) 167.6 Current Weight (lbs) 58.967 kg Weight (Calculated Kilograms) 59.0 Weight (Calculated Grams) 12726.0 [place] Body Weight 142 Body Mass Index (BMI) 20.9 Weight Status Approriate GI Symptoms GI Symptoms None Last BM none Difficult in: None Skin Integrity/Comment: scars to left shoulder, left forehead and left foot skin tear to left upper back Current %PO Good (75-100%) Estimated Nutritional Goals BEE in Kcals: Using Current wt Calories/Kcals/Kg 27-32 Kcals Calculated 4350-0387 Protein: Using Current wt Protein g/k-1.2 Protein Calculated 59-71 Fluid: ml 1593-1888ml (1ml/kcal) Nutritional Problem 1. Problem Problem altered nutrition related labs Etiology electrolytes imbalance Signs/Symptoms: na 134, Cl 108, Ca 8.1 Malnutrition Alert Is there a minimum of two criteria No selected? Query Text:Check all the applicable criteria. A minimum of two criteria are recommended for diagnosis of either severe or non-severe malnutrition. Malnutrition Related to Morbid Obesity Malnutrition related to morbid obesity No Intervention/Recommendation Comments 1. Continue with current diet as ordered. 2. Monitor PO intake, wt, labs and skin integrity 3. F/U as moderate risk in 3-5 days, 11/28-11/30 Expected Outcomes/Goals Expected Outcomes/Goals 1. PO intake to meet at least 75% of nutritional needs. 2. Wt stability, skin to remain intact, labs to approach WNL.
[2017-12-05] MEDS: Pantoprazole 40 mg EC Tab PO SCH (09:24)
[2017-12-05] MEDS: Lactobacillus Rhamnosus GG 15 Billion CFU CAP.SPRINK PO SCH (09:25)
[2017-12-05] MEDS ORDERED: Permethrin 1% Rinse 60 mL Bottle TP ONE (10:00)
[2017-12-05] MEDS: Venelex 60gm Tube TP SCH (10:49)
--- NOTE | 2017-12-06 01:37 | Progress Notes ---
DATE: 12/05/2017 SUBJECTIVE: Chart reviewed and the patient interviewed. Also, discussed the patient's condition with the staff and reviewed the records and labs. The patient is still anxious and is still confused. The patient also is still rambling and have disorganized thoughts. The patient also is still restless and when I was interviewing him, he was at his top off and only with his pants and was agitated and yelling in the room. Also, minimizing his drinking and he seems to be confused. Otherwise, the patient denies any side effects of medications. ASSESSMENT: The patient is still agitated. TREATMENT PLAN: Continue to monitor his behavior closely and continue to work on his drinking and followup. JOB# [id number]
--- NOTE | 2017-12-06 08:18 | General Progress Note ---
Subjective - Review of Systems Service Date: 12/06/17 Subjective: Patient is more awake and alert afebrile but confused. no new changes. bp better. EF 58%. diarrhea improved. Found to have head lice. placement pending VS T 98.7 P 72 R 17 BP 98/54 Objective - Results Result Diagrams: 11/27/17 06:20 11/27/17 06:20 Recent Labs: Laboratory Last Values WBC 6.7 Th/cmm (4.8-10.8) 11/27/17 06:20 RBC 3.34 Mil/cmm (4.30-5.70) L 11/27/17 06:20 Hgb 8.2 gm/dL (12-16) L 11/27/17 06:20 Hct 25.1 % (41.0-60) L 11/27/17 06:20 MCV 74.9 fl (80-99) L 11/27/17 06:20 MCH 24.6 pg (26.0-30.0) L 11/27/17 06:20 MCHC Differential 32.8 pg (28.0-36.0) 11/27/17 06:20 RDW 16.1 % (11.5-20.0) 11/27/17 06:20 Plt Count 421 Th/cmm (150-400) H 11/27/17 06:20 MPV 7.7 fl 11/27/17 06:20 Add Manual Diff YES 11/27/17 06:20 Neutrophils % 63.2 % (40.0-80.0) 11/26/17 04:50 Band Neutrophils % 0 % (0-10) 11/27/17 06:20 Lymphocytes % 22.1 % (20.0-50.0) 11/26/17 04:50 Monocytes % 7.2 % (2.0-10.0) 11/26/17 04:50 Eosinophils % 6.8 % (0.0-5.0) H 11/26/17 04:50 Basophils % 0.7 % (0.0-2.0) 11/26/17 04:50 Neutrophils (Manual) 65 % (40-80) 11/27/17 06:20 Lymphocytes 23 % (20-50) 11/27/17 06:20 Monocytes 4 % (2-10) 11/27/17 06:20 Eosinophils 8 % (0-5) H 11/27/17 06:20 Basophils 0 % (0-3) 11/27/17 06:20 Microcytosis 2+ 11/27/17 06:20 ESR 127 mm/hr (0-20) H 11/26/17 04:50 PT 11.3 SECONDS (9.5-11.5) 11/23/17 19:05 INR 1.09 (0.5-1.4) 11/23/17 19:05 Sodium 136 mEq/L (136-145) 11/27/17 06:20 Potassium 3.7 mEq/L (3.5-5.1) 11/27/17 06:20 Chloride 108 mEq/L (98-107) H 11/27/17 06:20 Carbon Dioxide 22.1 mEq/L (21.0-31.0) 11/27/17 06:20 Anion Gap 9.6 (7.0-16.0) 11/27/17 06:20 BUN 8 mg/dL (7-25) 11/27/17 06:20 Creatinine 0.8 mg/dL (0.7-1.3) 11/27/17 06:20 Est GFR ( Amer) > 60.0 ml/min (>90) 11/27/17 06:20 Est GFR (Non-Af Amer) > 60.0 ml/min 11/27/17 06:20 BUN/Creatinine Ratio 10.0 11/27/17 06:20 Glucose 104 mg/dL (70-105) 11/27/17 06:20 POC Glucose 84 MG/DL (70 - 105) 11/24/17 00:22 Whole Bld Lactic Acid 1.72 mmol/L (0.60-1.99) 11/24/17 05:00 Calcium 8.7 mg/dL (8.6-10.3) 11/27/17 06:20 Total Bilirubin 0.2 mg/dL (0.3-1.0) L 11/27/17 06:20 AST 10 U/L (13-39) L 11/27/17 06:20 ALT 6 U/L (7-52) L 11/27/17 06:20 Alkaline Phosphatase 45 U/L (34-104) 11/27/17 06:20 Ammonia 47 umol/L (16-53) 11/26/17 06:25 Creatine Kinase 113 U/L (30-223) 11/23/17 19:05 Troponin I < 0.01 ng/mL (0.01-0.05) L 11/23/17 19:05 B-Natriuretic Peptide 848.0 pg/mL (5.0-100.0) H 11/25/17 04:45 Total Protein 7.7 gm/dL (6.0-8.3) 11/27/17 06:20 Albumin 2.9 gm/dL (4.2-5.5) L 11/27/17 06:20 Globulin 4.8 gm/dL 11/27/17 06:20 Albumin/Globulin Ratio 0.6 (1.0-1.8) L 11/27/17 06:20 Triglycerides 68 mg/dL (<150) 11/23/17 19:05 Cholesterol 147 mg/dL (<200) 11/23/17 19:05 LDL Cholesterol Direct 98 mg/dL (75-193) 11/23/17 19:05 HDL Cholesterol 36 mg/dL (23-92) 11/23/17 19:05 Vitamin B12 740 pg/mL (232-1245) 11/26/17 04:50 Folic Acid 14.9 ng/mL (>3.0) 11/26/17 04:50 Free T4 1.08 ng/dL (0.82-1.77) 11/26/17 04:50 TSH 0.97 uIU/ml (0.34-5.60) 11/26/17 04:50 Stool Occult Blood NEGATIVE (NEGATIVE) 11/27/17 14:00 Urine Opiates Screen NEGATIVE (NEGATIVE) 11/24/17 15:00 Urine Methadone Screen NEGATIVE (NEGATIVE) 11/24/17 15:00 Ur Barbiturates Screen NEGATIVE (NEGATIVE) 11/24/17 15:00 Ur Tricyclics Screen NEGATIVE (NEGATIVE) 11/24/17 15:00 Ur Phencyclidine Scrn NEGATIVE (NEGATIVE) 11/24/17 15:00 Amphetamines Screen NEGATIVE (NEGATIVE) 11/24/17 15:00 U Methamphetamines Scrn NEGATIVE (NEGATIVE) 11/24/17 15:00 U Benzodiazepines Scrn POSITIVE (NEGATIVE) H 11/24/17 15:00 U Cocaine Metab Screen NEGATIVE (NEGATIVE) 11/24/17 15:00 U Cannabinoids Screen NEGATIVE (NEGATIVE) 11/24/17 15:00 Ethyl Alcohol < 10 mg/dL (0-10) 11/25/17 04:45 Blood Type A POSITIVE 11/26/17 11:45 - Physical Exam Vitals and I&O: Vital Signs Temp 98.7 F 12/06/17 04:00 Pulse 72 12/06/17 04:00 Resp 17 12/06/17 04:00 BP 98/54 12/06/17 04:00 Pulse Ox 99 12/06/17 04:00 Intake & Output 12/05/17 12/06/17 12/06/17 18:59 06:59 18:59 Intake Total 1500 300 Balance 1500 300 Weight (lbs) 63.503 kg 63.503 kg Intake: Oral 1500 300 Other: # Voids 5 2 # Bowel Movements 1 Weight Source Bedscale Patient stated Active Medications: Current Medications [place] Oil/[place]ian Balsam/Trypsin (Venelex) 1 appl TP DAILY MOISES Stop: 01/24/18 08:59 Last Admin: 12/05/17 10:49 Dose: 1 appl Chlordiazepoxide (Librium) 5 mg PO DAILY MOISES; Protocol Stop: 01/24/18 18:29 Last Admin: 12/05/17 09:25 Dose: 5 mg Lactobacillus Rhamnosus (Culturelle 15b) 1 each PO DAILY MOISES Stop: 01/29/18 08:59 Last Admin: 12/05/17 09:25 Dose: 1 each Lorazepam (Ativan) 1 mg IVP Q4HR PRN; Protocol PRN Reason: Agitation Stop: 01/24/18 11:37 Last Admin: 12/01/17 16:10 Dose: 1 mg Miscellaneous (Probiotic Screen) 1 ea MC PRN PRN PRN Reason: PROTOCOL Stop: 01/28/18 10:14 Pantoprazole Sodium (Protonix) 40 mg PO DAILY MOISES Stop: 02/03/18 08:59 Last Admin: 12/05/17 09:24 Dose: 40 mg General: Alert, No acute distress HEENT: Atraumatic, PERRLA, EOMI Neck: Supple, no JVD Cardiovascular: Regular rate, Normal S1, Normal S2 Lungs: Other (rales) Abdomen: Bowel sounds, Soft Extremities: no Clubbing, no Cyanosis, no Edema Neurological: Normal gait, Normal speech Assessment/Plan - Problem List Patient Problems: All Active Problems ALTERED MENTAL STATUS WITH OLD WOUNDS (Acute) - Assessment Assessment: Current Active Problems Problem Status Onset ALTERED MENTAL STATUS WITH OLD WOUNDS Acute ALOC improved ETOH abuse alcohol withdrawal ... on Librium leukoctosis now resolved anemia hb 8.2 possible sepsis pna improved. blood culture negative elevated BNP will order cardiac consult hypotensive improved hepatic encephalopathy improved ... off lactulose Head Lice awaiting placement - Plan Plan: dc zosyn repeat CBC,CMP,lactic acid, BNP this AM chest xray d5NS swallow eval repeat ETOH level this AM CBC add lactulose add librium ECHO health care social worker consult jail placement. Permethrin topical PT eval Nutritional Asmnt/Malnutr-PDOC - Dietary Evaluation Malnutrition Findings (Please click <Entered> for more info): Nutritional Asmnt/Malnutrition Start: 11/25/17 17: 20 Text: Status: Complete Freq: Protocol: Document 11/25/17 17:20 LCDILANG (Rec: 11/25/17 17:36 DILAN [email or web address]) Nutritional Asmnt/Malnutrition Patient General Information Nutritional Screening Moderate Risk Consult Diagnosis ALOC, possible PNA aspiration, ETOH Pertinent Medical Hx/Surgical Hx HTN, dyslipidemia, dementia, Subjective Information Consult received for multiple wounds. Pt seen lying in bed at time of visit, awake and alert, on banana bag. Oral diet started from lunch today. Pt stated he was hungry. Per EMR, pt consumed 100% of lunch . Current Diet Order/ Nutrition Support [facility] Pertinent Medications D5-0.9%ns, banana bag, protonix, piperacillin Pertinent Labs 11/25 na 134, Cl 108, glucose 104, Ca 8.1, alb 2.5 Nutritional Hx/Data Height 1.68 m Height (Calculated Centimeters) 167.6 Current Weight (lbs) 58.967 kg Weight (Calculated Kilograms) 59.0 Weight (Calculated Grams) 25209.0 [place] Body Weight 142 Body Mass Index (BMI) 20.9 Weight Status Approriate GI Symptoms GI Symptoms None Last BM none Difficult in: None Skin Integrity/Comment: scars to left shoulder, left forehead and left foot skin tear to left upper back Current %PO Good (75-100%) Estimated Nutritional Goals BEE in Kcals: Using Current wt Calories/Kcals/Kg 27-32 Kcals Calculated 2221-0367 Protein: Using Current wt Protein g/k-1.2 Protein Calculated 59-71 Fluid: ml 1593-1888ml (1ml/kcal) Nutritional Problem 1. Problem Problem altered nutrition related labs Etiology electrolytes imbalance Signs/Symptoms: na 134, Cl 108, Ca 8.1 Malnutrition Alert Is there a minimum of two criteria No selected? Query Text:Check all the applicable criteria. A minimum of two criteria are recommended for diagnosis of either severe or non-severe malnutrition. Malnutrition Related to Morbid Obesity Malnutrition related to morbid obesity No Intervention/Recommendation Comments 1. Continue with current diet as ordered. 2. Monitor PO intake, wt, labs and skin integrity 3. F/U as moderate risk in 3-5 days, 11/28-11/30 Expected Outcomes/Goals Expected Outcomes/Goals 1. PO intake to meet at least 75% of nutritional needs. 2. Wt stability, skin to remain intact, labs to approach WNL.
[2017-12-06] MEDS: Lactobacillus Rhamnosus GG 15 Billion CFU CAP.SPRINK PO SCH (09:34)
[2017-12-06] MEDS: Venelex 60gm Tube TP SCH (09:34)
[2017-12-06] MEDS: Pantoprazole 40 mg EC Tab PO SCH (09:34)
--- NOTE | 2017-12-06 18:16 | Progress Notes ---
DATE: 12/06/2017 SUBJECTIVE: Chart reviewed and the patient interviewed. Also, discussed the patient's condition with the staff and reviewed records and labs. The patient still has episodes of agitation and irritability at night, but seems to be slightly calmer than before. The patient also still needs redirections. Slightly easier to redirect him. The patient denies any suicidal or homicidal ideations. The patient also is interacting slightly in a calmer way. Otherwise, no side effects of medications. ASSESSMENT: The patient is still agitated and psychotic. TREATMENT PLAN: Continue to monitor his behavior and his condition closely. Also, continue to adjust psychotropic medications and followup. JOB# [id number]
--- NOTE | 2017-12-07 08:19 | General Progress Note ---
Subjective - Review of Systems Service Date: 12/07/17 Subjective: Patient is more awake and alert afebrile but confused. no new changes. bp better. EF 58%. diarrhea improved. Found to have head lice. placement pending VS T 97.0 P 61 R 18 BP 98/54 Objective - Results Result Diagrams: 11/27/17 06:20 11/27/17 06:20 Recent Labs: Laboratory Last Values WBC 6.7 Th/cmm (4.8-10.8) 11/27/17 06:20 RBC 3.34 Mil/cmm (4.30-5.70) L 11/27/17 06:20 Hgb 8.2 gm/dL (12-16) L 11/27/17 06:20 Hct 25.1 % (41.0-60) L 11/27/17 06:20 MCV 74.9 fl (80-99) L 11/27/17 06:20 MCH 24.6 pg (26.0-30.0) L 11/27/17 06:20 MCHC Differential 32.8 pg (28.0-36.0) 11/27/17 06:20 RDW 16.1 % (11.5-20.0) 11/27/17 06:20 Plt Count 421 Th/cmm (150-400) H 11/27/17 06:20 MPV 7.7 fl 11/27/17 06:20 Add Manual Diff YES 11/27/17 06:20 Neutrophils % 63.2 % (40.0-80.0) 11/26/17 04:50 Band Neutrophils % 0 % (0-10) 11/27/17 06:20 Lymphocytes % 22.1 % (20.0-50.0) 11/26/17 04:50 Monocytes % 7.2 % (2.0-10.0) 11/26/17 04:50 Eosinophils % 6.8 % (0.0-5.0) H 11/26/17 04:50 Basophils % 0.7 % (0.0-2.0) 11/26/17 04:50 Neutrophils (Manual) 65 % (40-80) 11/27/17 06:20 Lymphocytes 23 % (20-50) 11/27/17 06:20 Monocytes 4 % (2-10) 11/27/17 06:20 Eosinophils 8 % (0-5) H 11/27/17 06:20 Basophils 0 % (0-3) 11/27/17 06:20 Microcytosis 2+ 11/27/17 06:20 ESR 127 mm/hr (0-20) H 11/26/17 04:50 PT 11.3 SECONDS (9.5-11.5) 11/23/17 19:05 INR 1.09 (0.5-1.4) 11/23/17 19:05 Sodium 136 mEq/L (136-145) 11/27/17 06:20 Potassium 3.7 mEq/L (3.5-5.1) 11/27/17 06:20 Chloride 108 mEq/L (98-107) H 11/27/17 06:20 Carbon Dioxide 22.1 mEq/L (21.0-31.0) 11/27/17 06:20 Anion Gap 9.6 (7.0-16.0) 11/27/17 06:20 BUN 8 mg/dL (7-25) 11/27/17 06:20 Creatinine 0.8 mg/dL (0.7-1.3) 11/27/17 06:20 Est GFR ( Amer) > 60.0 ml/min (>90) 11/27/17 06:20 Est GFR (Non-Af Amer) > 60.0 ml/min 11/27/17 06:20 BUN/Creatinine Ratio 10.0 11/27/17 06:20 Glucose 104 mg/dL (70-105) 11/27/17 06:20 POC Glucose 84 MG/DL (70 - 105) 11/24/17 00:22 Whole Bld Lactic Acid 1.72 mmol/L (0.60-1.99) 11/24/17 05:00 Calcium 8.7 mg/dL (8.6-10.3) 11/27/17 06:20 Total Bilirubin 0.2 mg/dL (0.3-1.0) L 11/27/17 06:20 AST 10 U/L (13-39) L 11/27/17 06:20 ALT 6 U/L (7-52) L 11/27/17 06:20 Alkaline Phosphatase 45 U/L (34-104) 11/27/17 06:20 Ammonia 37 umol/L (16-53) 12/06/17 12:20 Creatine Kinase 113 U/L (30-223) 11/23/17 19:05 Troponin I < 0.01 ng/mL (0.01-0.05) L 11/23/17 19:05 B-Natriuretic Peptide 848.0 pg/mL (5.0-100.0) H 11/25/17 04:45 Total Protein 7.7 gm/dL (6.0-8.3) 11/27/17 06:20 Albumin 2.9 gm/dL (4.2-5.5) L 11/27/17 06:20 Globulin 4.8 gm/dL 11/27/17 06:20 Albumin/Globulin Ratio 0.6 (1.0-1.8) L 11/27/17 06:20 Triglycerides 68 mg/dL (<150) 11/23/17 19:05 Cholesterol 147 mg/dL (<200) 11/23/17 19:05 LDL Cholesterol Direct 98 mg/dL (75-193) 11/23/17 19:05 HDL Cholesterol 36 mg/dL (23-92) 11/23/17 19:05 Vitamin B12 740 pg/mL (232-1245) 11/26/17 04:50 Folic Acid 14.9 ng/mL (>3.0) 11/26/17 04:50 Free T4 1.08 ng/dL (0.82-1.77) 11/26/17 04:50 TSH 0.97 uIU/ml (0.34-5.60) 11/26/17 04:50 Stool Occult Blood NEGATIVE (NEGATIVE) 11/27/17 14:00 Urine Opiates Screen NEGATIVE (NEGATIVE) 11/24/17 15:00 Urine Methadone Screen NEGATIVE (NEGATIVE) 11/24/17 15:00 Ur Barbiturates Screen NEGATIVE (NEGATIVE) 11/24/17 15:00 Ur Tricyclics Screen NEGATIVE (NEGATIVE) 11/24/17 15:00 Ur Phencyclidine Scrn NEGATIVE (NEGATIVE) 11/24/17 15:00 Amphetamines Screen NEGATIVE (NEGATIVE) 11/24/17 15:00 U Methamphetamines Scrn NEGATIVE (NEGATIVE) 11/24/17 15:00 U Benzodiazepines Scrn POSITIVE (NEGATIVE) H 11/24/17 15:00 U Cocaine Metab Screen NEGATIVE (NEGATIVE) 11/24/17 15:00 U Cannabinoids Screen NEGATIVE (NEGATIVE) 11/24/17 15:00 Ethyl Alcohol < 10 mg/dL (0-10) 11/25/17 04:45 Blood Type A POSITIVE 11/26/17 11:45 - Physical Exam Vitals and I&O: Vital Signs Temp 97 F 12/07/17 04:00 Pulse 61 12/07/17 04:00 Resp 18 12/07/17 04:00 BP 95/54 12/07/17 04:00 Pulse Ox 97 12/07/17 04:00 Intake & Output 12/06/17 12/07/17 12/07/17 18:59 06:59 18:59 Intake Total 600 360 Balance 600 360 Weight (lbs) 64.864 kg 64.864 kg Intake: Oral 600 360 Other: # Voids 5 3 # Bowel Movements 2 Weight Source Bedscale Bedscale Active Medications: Current Medications [place] Oil/[place]ian Balsam/Trypsin (Venelex) 1 appl TP DAILY MOISES Stop: 01/24/18 08:59 Last Admin: 12/06/17 09:34 Dose: 1 appl Chlordiazepoxide (Librium) 5 mg PO DAILY MOISES; Protocol Stop: 01/24/18 18:29 Last Admin: 12/06/17 09:34 Dose: 5 mg Lactobacillus Rhamnosus (Culturelle 15b) 1 each PO DAILY MOISES Stop: 01/29/18 08:59 Last Admin: 12/06/17 09:34 Dose: 1 each Lorazepam (Ativan) 1 mg IVP Q4HR PRN; Protocol PRN Reason: Agitation Stop: 01/24/18 11:37 Last Admin: 12/01/17 16:10 Dose: 1 mg Miscellaneous (Probiotic Screen) 1 ea MC PRN PRN PRN Reason: PROTOCOL Stop: 01/28/18 10:14 Pantoprazole Sodium (Protonix) 40 mg PO DAILY MOISES Stop: 02/03/18 08:59 Last Admin: 12/06/17 09:34 Dose: 40 mg General: Alert, No acute distress HEENT: Atraumatic, PERRLA, EOMI Neck: Supple, no JVD Cardiovascular: Regular rate, Normal S1, Normal S2 Lungs: Other (rales) Abdomen: Bowel sounds, Soft Extremities: no Clubbing, no Cyanosis, no Edema Neurological: Normal gait, Normal speech Assessment/Plan - Problem List Patient Problems: All Active Problems ALTERED MENTAL STATUS WITH OLD WOUNDS (Acute) - Assessment Assessment: Current Active Problems Problem Status Onset ALTERED MENTAL STATUS WITH OLD WOUNDS Acute ALOC improved ETOH abuse alcohol withdrawal ... on Librium leukoctosis now resolved anemia hb 8.2 possible sepsis pna improved. blood culture negative elevated BNP will order cardiac consult hypotensive improved hepatic encephalopathy improved ... off lactulose Head Lice awaiting placement - Plan Plan: dc zosyn repeat CBC,CMP,lactic acid, BNP this AM chest xray d5NS swallow eval repeat ETOH level this AM CBC add lactulose add librium ECHO social welfare administrator consult correction placement. Permethrin topical PT eval Nutritional Asmnt/Malnutr-PDOC - Dietary Evaluation Malnutrition Findings (Please click <Entered> for more info): Nutritional Asmnt/Malnutrition Start: 11/25/17 17: 20 Text: Status: Complete Freq: Protocol: Document 11/25/17 17:20 LCDILANG (Rec: 11/25/17 17:36 DILAN [email or web address]) Nutritional Asmnt/Malnutrition Patient General Information Nutritional Screening Moderate Risk Consult Diagnosis ALOC, possible PNA aspiration, ETOH Pertinent Medical Hx/Surgical Hx HTN, dyslipidemia, dementia, Subjective Information Consult received for multiple wounds. Pt seen lying in bed at time of visit, awake and alert, on banana bag. Oral diet started from lunch today. Pt stated he was hungry. Per EMR, pt consumed 100% of lunch . Current Diet Order/ Nutrition Support [facility] soft ground Pertinent Medications D5-0.9%ns, banana bag, protonix, piperacillin Pertinent Labs 11/25 na 134, Cl 108, glucose 104, Ca 8.1, alb 2.5 Nutritional Hx/Data Height 1.68 m Height (Calculated Centimeters) 167.6 Current Weight (lbs) 58.967 kg Weight (Calculated Kilograms) 59.0 Weight (Calculated Grams) 74136.0 [place] Body Weight 142 Body Mass Index (BMI) 20.9 Weight Status Approriate GI Symptoms GI Symptoms None Last BM none Difficult in: None Skin Integrity/Comment: scars to left shoulder, left forehead and left foot skin tear to left upper back Current %PO Good (75-100%) Estimated Nutritional Goals BEE in Kcals: Using Current wt Calories/Kcals/Kg 27-32 Kcals Calculated 0873-0762 Protein: Using Current wt Protein g/k-1.2 Protein Calculated 59-71 Fluid: ml 1593-1888ml (1ml/kcal) Nutritional Problem 1. Problem Problem altered nutrition related labs Etiology electrolytes imbalance Signs/Symptoms: na 134, Cl 108, Ca 8.1 Malnutrition Alert Is there a minimum of two criteria No selected? Query Text:Check all the applicable criteria. A minimum of two criteria are recommended for diagnosis of either severe or non-severe malnutrition. Malnutrition Related to Morbid Obesity Malnutrition related to morbid obesity No Intervention/Recommendation Comments 1. Continue with current diet as ordered. 2. Monitor PO intake, wt, labs and skin integrity 3. F/U as moderate risk in 3-5 days, 11/28-11/30 Expected Outcomes/Goals Expected Outcomes/Goals 1. PO intake to meet at least 75% of nutritional needs. 2. Wt stability, skin to remain intact, labs to approach WNL.
[2017-12-07] MEDS: Lactobacillus Rhamnosus GG 15 Billion CFU CAP.SPRINK PO SCH (08:52)
[2017-12-07] MEDS: Venelex 60gm Tube TP SCH (08:52)
[2017-12-07] MEDS: Pantoprazole 40 mg EC Tab PO SCH (08:53)
[2017-12-07 09:08] LABS: ALB/GLOB RATIO 0.8 (1.0-1.8); ALBUMIN 3.6 gm/dL (4.2-5.5); ALKALINE PHOSPHATASE 54 U/L (34-104); ANION GAP 12.9 (7.0-16.0); BILIRUBIN,TOTAL 0.3 mg/dL (0.3-1.0); BUN - UREA NITROGEN 20 mg/dL (7-25); CALCIUM SERUM 9.8 mg/dL (8.6-10.3); CARBON DIOXIDE 26.1 mEq/L (21.0-31.0); CHLORIDE 102 mEq/L (98-107); CREATININE - SERUM 0.8 mg/dL (0.7-1.3); GFR AFRICAN-AMERICAN > 60.0 ml/min (>90); GFR NON AFRICAN-AMERICAN > 60.0 ml/min; GLUCOSE 114 mg/dL (70-105); SGOT 9 U/L (13-39); SGPT/ALT 8 U/L (7-52); SODIUM SERUM 137 mEq/L (136-145); TOTAL PROTEIN,SERUM 8.3 gm/dL (6.0-8.3)
--- NOTE | 2017-12-07 21:23 | Progress Notes ---
DATE: PSYCHIATRIC FOLLOWUP SUBJECTIVE: Chart reviewed and the patient interviewed. Also discussed the patient's condition with the staff and reviewed records and labs. The patient is calmer, but he is still confused. The patient also is still restless and still have difficulty following directions. The patient also needs close monitoring. Otherwise, the patient is compliant with taking medications with no side effects of medications. ASSESSMENT: The patient is still agitated and slightly confused. TREATMENT PLAN: Continue monitoring behavior and continue to follow up. JOB# [id number]
--- NOTE | 2017-12-08 08:09 | General Progress Note ---
Subjective - Review of Systems Service Date: 12/08/17 Subjective: Patient is more awake and alert afebrile but confused. no new changes. bp better. EF 58%. diarrhea improved. Found to have head lice. placement pending VS T 96.6 P 50 R 17 BP 91/41 Objective - Results Result Diagrams: 11/27/17 06:20 12/07/17 06:06 Recent Labs: Laboratory Last Values WBC 6.7 Th/cmm (4.8-10.8) 11/27/17 06:20 RBC 3.34 Mil/cmm (4.30-5.70) L 11/27/17 06:20 Hgb 8.2 gm/dL (12-16) L 11/27/17 06:20 Hct 25.1 % (41.0-60) L 11/27/17 06:20 MCV 74.9 fl (80-99) L 11/27/17 06:20 MCH 24.6 pg (26.0-30.0) L 11/27/17 06:20 MCHC Differential 32.8 pg (28.0-36.0) 11/27/17 06:20 RDW 16.1 % (11.5-20.0) 11/27/17 06:20 Plt Count 421 Th/cmm (150-400) H 11/27/17 06:20 MPV 7.7 fl 11/27/17 06:20 Add Manual Diff YES 11/27/17 06:20 Neutrophils % 63.2 % (40.0-80.0) 11/26/17 04:50 Band Neutrophils % 0 % (0-10) 11/27/17 06:20 Lymphocytes % 22.1 % (20.0-50.0) 11/26/17 04:50 Monocytes % 7.2 % (2.0-10.0) 11/26/17 04:50 Eosinophils % 6.8 % (0.0-5.0) H 11/26/17 04:50 Basophils % 0.7 % (0.0-2.0) 11/26/17 04:50 Neutrophils (Manual) 65 % (40-80) 11/27/17 06:20 Lymphocytes 23 % (20-50) 11/27/17 06:20 Monocytes 4 % (2-10) 11/27/17 06:20 Eosinophils 8 % (0-5) H 11/27/17 06:20 Basophils 0 % (0-3) 11/27/17 06:20 Microcytosis 2+ 11/27/17 06:20 ESR 127 mm/hr (0-20) H 11/26/17 04:50 PT 11.3 SECONDS (9.5-11.5) 11/23/17 19:05 INR 1.09 (0.5-1.4) 11/23/17 19:05 Sodium 137 mEq/L (136-145) 12/07/17 06:06 Potassium 4.0 mEq/L (3.5-5.1) 12/07/17 06:06 Chloride 102 mEq/L (98-107) 12/07/17 06:06 Carbon Dioxide 26.1 mEq/L (21.0-31.0) 12/07/17 06:06 Anion Gap 12.9 (7.0-16.0) 12/07/17 06:06 BUN 20 mg/dL (7-25) 12/07/17 06:06 Creatinine 0.8 mg/dL (0.7-1.3) 12/07/17 06:06 Est GFR ( Amer) > 60.0 ml/min (>90) 12/07/17 06:06 Est GFR (Non-Af Amer) > 60.0 ml/min 12/07/17 06:06 BUN/Creatinine Ratio 25.0 12/07/17 06:06 Glucose 114 mg/dL (70-105) H 12/07/17 06:06 POC Glucose 84 MG/DL (70 - 105) 11/24/17 00:22 Whole Bld Lactic Acid 1.72 mmol/L (0.60-1.99) 11/24/17 05:00 Calcium 9.8 mg/dL (8.6-10.3) 12/07/17 06:06 Total Bilirubin 0.3 mg/dL (0.3-1.0) 12/07/17 06:06 AST 9 U/L (13-39) L 12/07/17 06:06 ALT 8 U/L (7-52) 12/07/17 06:06 Alkaline Phosphatase 54 U/L (34-104) 12/07/17 06:06 Ammonia 37 umol/L (16-53) 12/06/17 12:20 Creatine Kinase 113 U/L (30-223) 11/23/17 19:05 Troponin I < 0.01 ng/mL (0.01-0.05) L 11/23/17 19:05 B-Natriuretic Peptide 848.0 pg/mL (5.0-100.0) H 11/25/17 04:45 Total Protein 8.3 gm/dL (6.0-8.3) 12/07/17 06:06 Albumin 3.6 gm/dL (4.2-5.5) L 12/07/17 06:06 Globulin 4.7 gm/dL 12/07/17 06:06 Albumin/Globulin Ratio 0.8 (1.0-1.8) L 12/07/17 06:06 Triglycerides 68 mg/dL (<150) 11/23/17 19:05 Cholesterol 147 mg/dL (<200) 11/23/17 19:05 LDL Cholesterol Direct 98 mg/dL (75-193) 11/23/17 19:05 HDL Cholesterol 36 mg/dL (23-92) 11/23/17 19:05 Vitamin B12 740 pg/mL (232-1245) 11/26/17 04:50 Folic Acid 14.9 ng/mL (>3.0) 11/26/17 04:50 Free T4 1.08 ng/dL (0.82-1.77) 11/26/17 04:50 TSH 0.97 uIU/ml (0.34-5.60) 11/26/17 04:50 Stool Occult Blood NEGATIVE (NEGATIVE) 11/27/17 14:00 Urine Opiates Screen NEGATIVE (NEGATIVE) 11/24/17 15:00 Urine Methadone Screen NEGATIVE (NEGATIVE) 11/24/17 15:00 Ur Barbiturates Screen NEGATIVE (NEGATIVE) 11/24/17 15:00 Ur Tricyclics Screen NEGATIVE (NEGATIVE) 11/24/17 15:00 Ur Phencyclidine Scrn NEGATIVE (NEGATIVE) 11/24/17 15:00 Amphetamines Screen NEGATIVE (NEGATIVE) 11/24/17 15:00 U Methamphetamines Scrn NEGATIVE (NEGATIVE) 11/24/17 15:00 U Benzodiazepines Scrn POSITIVE (NEGATIVE) H 11/24/17 15:00 U Cocaine Metab Screen NEGATIVE (NEGATIVE) 11/24/17 15:00 U Cannabinoids Screen NEGATIVE (NEGATIVE) 11/24/17 15:00 Ethyl Alcohol < 10 mg/dL (0-10) 11/25/17 04:45 Blood Type A POSITIVE 11/26/17 11:45 - Physical Exam Vitals and I&O: Vital Signs Temp 96.6 F 12/08/17 04:00 Pulse 50 12/08/17 04:00 Resp 17 12/08/17 04:00 BP 91/41 12/08/17 04:00 Pulse Ox 97 12/08/17 04:00 Intake & Output 12/07/17 12/08/17 12/08/17 18:59 06:59 18:59 Intake Total 800 Balance 800 Weight (lbs) 65.771 kg 65.317 kg Intake: Oral 800 Other: # Voids 4 3 # Bowel Movements 0 Weight Source Bedscale Bedscale Active Medications: Current Medications [place] Oil/[place] Balsam/Trypsin (Venelex) 1 appl TP DAILY MOISES Stop: 01/24/18 08:59 Last Admin: 12/07/17 08:52 Dose: 1 appl Chlordiazepoxide (Librium) 5 mg PO DAILY MOISES; Protocol Stop: 01/24/18 18:29 Last Admin: 12/07/17 08:52 Dose: 5 mg Lactobacillus Rhamnosus (Culturelle 15b) 1 each PO DAILY MOISES Stop: 01/29/18 08:59 Last Admin: 12/07/17 08:52 Dose: 1 each Lorazepam (Ativan) 1 mg IVP Q4HR PRN; Protocol PRN Reason: Agitation Stop: 01/24/18 11:37 Last Admin: 12/01/17 16:10 Dose: 1 mg Miscellaneous (Probiotic Screen) 1 ea MC PRN PRN PRN Reason: PROTOCOL Stop: 01/28/18 10:14 Pantoprazole Sodium (Protonix) 40 mg PO DAILY MOISES Stop: 02/03/18 08:59 Last Admin: 12/07/17 08:53 Dose: 40 mg General: Alert, No acute distress HEENT: Atraumatic, PERRLA, EOMI Neck: Supple, no JVD Cardiovascular: Regular rate, Normal S1, Normal S2 Lungs: Other (rales) Abdomen: Bowel sounds, Soft Extremities: no Clubbing, no Cyanosis, no Edema Neurological: Normal gait, Normal speech Assessment/Plan - Problem List Patient Problems: All Active Problems ALTERED MENTAL STATUS WITH OLD WOUNDS (Acute) - Assessment Assessment: Current Active Problems Problem Status Onset ALTERED MENTAL STATUS WITH OLD WOUNDS Acute ALOC improved ETOH abuse alcohol withdrawal ... on Librium leukoctosis now resolved anemia hb 8.2 possible sepsis pna improved. blood culture negative elevated BNP will order cardiac consult hypotensive improved hepatic encephalopathy improved ... 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 Permethrin topical PT eval Nutritional Asmnt/Malnutr-PDOC - Dietary Evaluation Malnutrition Findings (Please click <Entered> for more info): Nutritional Asmnt/Malnutrition Start: 11/25/17 17: 20 Text: Status: Complete Freq: Protocol: Document 11/25/17 17:20 LCDILANG (Rec: 11/25/17 17:36 [email or web address]) Nutritional Asmnt/Malnutrition Patient General Information Nutritional Screening Moderate Risk Consult Diagnosis ALOC, possible PNA aspiration, ETOH Pertinent Medical Hx/Surgical Hx HTN, dyslipidemia, dementia, Subjective Information Consult received for multiple wounds. Pt seen lying in bed at time of visit, awake and alert, on banana bag. Oral diet started from lunch today. Pt stated he was hungry. Per EMR, pt consumed 100% of lunch . Current Diet Order/ Nutrition Support [facility] soft ground Pertinent Medications D5-0.9%ns, banana bag, protonix, piperacillin Pertinent Labs 11/25 na 134, Cl 108, glucose 104, Ca 8.1, alb 2.5 Nutritional Hx/Data Height 1.68 m Height (Calculated Centimeters) 167.6 Current Weight (lbs) 58.967 kg Weight (Calculated Kilograms) 59.0 Weight (Calculated Grams) 98419.0 [place] Body Weight 142 Body Mass Index (BMI) 20.9 Weight Status Approriate GI Symptoms GI Symptoms None Last BM none Difficult in: None Skin Integrity/Comment: scars to left shoulder, left forehead and left foot skin tear to left upper back Current %PO Good (75-100%) Estimated Nutritional Goals BEE in Kcals: Using Current wt Calories/Kcals/Kg 27-32 Kcals Calculated 7019-6270 Protein: Using Current wt Protein g/k-1.2 Protein Calculated 59-71 Fluid: ml 1593-1888ml (1ml/kcal) Nutritional Problem 1. Problem Problem altered nutrition related labs Etiology electrolytes imbalance Signs/Symptoms: na 134, Cl 108, Ca 8.1 Malnutrition Alert Is there a minimum of two criteria No selected? Query Text:Check all the applicable criteria. A minimum of two criteria are recommended for diagnosis of either severe or non-severe malnutrition. Malnutrition Related to Morbid Obesity Malnutrition related to morbid obesity No Intervention/Recommendation Comments 1. Continue with current diet as ordered. 2. Monitor PO intake, wt, labs and skin integrity 3. F/U as moderate risk in 3-5 days, 11/28-11/30 Expected Outcomes/Goals Expected Outcomes/Goals 1. PO intake to meet at least 75% of nutritional needs. 2. Wt stability, skin to remain intact, labs to approach WNL.
[2017-12-08] MEDS: Lactobacillus Rhamnosus GG 15 Billion CFU CAP.SPRINK PO SCH (08:12)
[2017-12-08] MEDS: Pantoprazole 40 mg EC Tab PO SCH (08:12)
[2017-12-08] MEDS: Venelex 60gm Tube TP SCH (08:13)
--- NOTE | 2017-12-09 08:16 | General Progress Note ---
Subjective - Review of Systems Service Date: 12/09/17 Subjective: Patient is more awake and alert afebrile but confused. no new changes. bp better. EF 58%. diarrhea improved. Found to have head lice. placement pending VS T 98.1 P 63 R 18 BP 112/64 Objective - Results Result Diagrams: 11/27/17 06:20 12/07/17 06:06 Recent Labs: Laboratory Last Values WBC 6.7 Th/cmm (4.8-10.8) 11/27/17 06:20 RBC 3.34 Mil/cmm (4.30-5.70) L 11/27/17 06:20 Hgb 8.2 gm/dL (12-16) L 11/27/17 06:20 Hct 25.1 % (41.0-60) L 11/27/17 06:20 MCV 74.9 fl (80-99) L 11/27/17 06:20 MCH 24.6 pg (26.0-30.0) L 11/27/17 06:20 MCHC Differential 32.8 pg (28.0-36.0) 11/27/17 06:20 RDW 16.1 % (11.5-20.0) 11/27/17 06:20 Plt Count 421 Th/cmm (150-400) H 11/27/17 06:20 MPV 7.7 fl 11/27/17 06:20 Add Manual Diff YES 11/27/17 06:20 Neutrophils % 63.2 % (40.0-80.0) 11/26/17 04:50 Band Neutrophils % 0 % (0-10) 11/27/17 06:20 Lymphocytes % 22.1 % (20.0-50.0) 11/26/17 04:50 Monocytes % 7.2 % (2.0-10.0) 11/26/17 04:50 Eosinophils % 6.8 % (0.0-5.0) H 11/26/17 04:50 Basophils % 0.7 % (0.0-2.0) 11/26/17 04:50 Neutrophils (Manual) 65 % (40-80) 11/27/17 06:20 Lymphocytes 23 % (20-50) 11/27/17 06:20 Monocytes 4 % (2-10) 11/27/17 06:20 Eosinophils 8 % (0-5) H 11/27/17 06:20 Basophils 0 % (0-3) 11/27/17 06:20 Microcytosis 2+ 11/27/17 06:20 ESR 127 mm/hr (0-20) H 11/26/17 04:50 PT 11.3 SECONDS (9.5-11.5) 11/23/17 19:05 INR 1.09 (0.5-1.4) 11/23/17 19:05 Sodium 137 mEq/L (136-145) 12/07/17 06:06 Potassium 4.0 mEq/L (3.5-5.1) 12/07/17 06:06 Chloride 102 mEq/L (98-107) 12/07/17 06:06 Carbon Dioxide 26.1 mEq/L (21.0-31.0) 12/07/17 06:06 Anion Gap 12.9 (7.0-16.0) 12/07/17 06:06 BUN 20 mg/dL (7-25) 12/07/17 06:06 Creatinine 0.8 mg/dL (0.7-1.3) 12/07/17 06:06 Est GFR ( Amer) > 60.0 ml/min (>90) 12/07/17 06:06 Est GFR (Non-Af Amer) > 60.0 ml/min 12/07/17 06:06 BUN/Creatinine Ratio 25.0 12/07/17 06:06 Glucose 114 mg/dL (70-105) H 12/07/17 06:06 POC Glucose 84 MG/DL (70 - 105) 11/24/17 00:22 Whole Bld Lactic Acid 1.72 mmol/L (0.60-1.99) 11/24/17 05:00 Calcium 9.8 mg/dL (8.6-10.3) 12/07/17 06:06 Total Bilirubin 0.3 mg/dL (0.3-1.0) 12/07/17 06:06 AST 9 U/L (13-39) L 12/07/17 06:06 ALT 8 U/L (7-52) 12/07/17 06:06 Alkaline Phosphatase 54 U/L (34-104) 12/07/17 06:06 Ammonia 37 umol/L (16-53) 12/06/17 12:20 Creatine Kinase 113 U/L (30-223) 11/23/17 19:05 Troponin I < 0.01 ng/mL (0.01-0.05) L 11/23/17 19:05 B-Natriuretic Peptide 848.0 pg/mL (5.0-100.0) H 11/25/17 04:45 Total Protein 8.3 gm/dL (6.0-8.3) 12/07/17 06:06 Albumin 3.6 gm/dL (4.2-5.5) L 12/07/17 06:06 Globulin 4.7 gm/dL 12/07/17 06:06 Albumin/Globulin Ratio 0.8 (1.0-1.8) L 12/07/17 06:06 Triglycerides 68 mg/dL (<150) 11/23/17 19:05 Cholesterol 147 mg/dL (<200) 11/23/17 19:05 LDL Cholesterol Direct 98 mg/dL (75-193) 11/23/17 19:05 HDL Cholesterol 36 mg/dL (23-92) 11/23/17 19:05 Vitamin B12 740 pg/mL (232-1245) 11/26/17 04:50 Folic Acid 14.9 ng/mL (>3.0) 11/26/17 04:50 Free T4 1.08 ng/dL (0.82-1.77) 11/26/17 04:50 TSH 0.97 uIU/ml (0.34-5.60) 11/26/17 04:50 Stool Occult Blood NEGATIVE (NEGATIVE) 11/27/17 14:00 Urine Opiates Screen NEGATIVE (NEGATIVE) 11/24/17 15:00 Urine Methadone Screen NEGATIVE (NEGATIVE) 11/24/17 15:00 Ur Barbiturates Screen NEGATIVE (NEGATIVE) 11/24/17 15:00 Ur Tricyclics Screen NEGATIVE (NEGATIVE) 11/24/17 15:00 Ur Phencyclidine Scrn NEGATIVE (NEGATIVE) 11/24/17 15:00 Amphetamines Screen NEGATIVE (NEGATIVE) 11/24/17 15:00 U Methamphetamines Scrn NEGATIVE (NEGATIVE) 11/24/17 15:00 U Benzodiazepines Scrn POSITIVE (NEGATIVE) H 11/24/17 15:00 U Cocaine Metab Screen NEGATIVE (NEGATIVE) 11/24/17 15:00 U Cannabinoids Screen NEGATIVE (NEGATIVE) 11/24/17 15:00 Ethyl Alcohol < 10 mg/dL (0-10) 11/25/17 04:45 Blood Type A POSITIVE 11/26/17 11:45 - Physical Exam Vitals and I&O: Vital Signs Temp 98.1 F 12/09/17 07:40 Pulse 63 12/09/17 07:40 Resp 18 12/09/17 07:40 BP 112/64 12/09/17 07:40 Pulse Ox 99 12/09/17 07:40 Intake & Output 12/08/17 12/09/17 12/09/17 18:59 06:59 18:59 Intake Total 800 Balance 800 Weight (lbs) 65.771 kg 65.998 kg Intake: Oral 800 Other: # Voids 5 2 # Bowel Movements 0 Weight Source Bedscale Bedscale Active Medications: Current Medications [place] Oil/[place] Balsam/Trypsin (Venelex) 1 appl TP DAILY MOISES Stop: 01/24/18 08:59 Last Admin: 12/08/17 08:13 Dose: 1 appl Lactobacillus Rhamnosus (Culturelle 15b) 1 each PO DAILY MOISES Stop: 01/29/18 08:59 Last Admin: 12/08/17 08:12 Dose: 1 each Lorazepam (Ativan) 1 mg IVP Q4HR PRN; Protocol PRN Reason: Agitation Stop: 01/24/18 11:37 Last Admin: 12/01/17 16:10 Dose: 1 mg Miscellaneous (Probiotic Screen) 1 ea MC PRN PRN PRN Reason: PROTOCOL Stop: 01/28/18 10:14 Pantoprazole Sodium (Protonix) 40 mg PO DAILY MOISES Stop: 02/03/18 08:59 Last Admin: 12/08/17 08:12 Dose: 40 mg General: Alert, No acute distress HEENT: Atraumatic, PERRLA, EOMI Neck: Supple, no JVD Cardiovascular: Regular rate, Normal S1, Normal S2 Lungs: Other (rales) Abdomen: Bowel sounds, Soft Extremities: no Clubbing, no Cyanosis, no Edema Neurological: Normal gait, Normal speech Assessment/Plan - Problem List Patient Problems: All Active Problems ALTERED MENTAL STATUS WITH OLD WOUNDS (Acute) - Assessment Assessment: Current Active Problems Problem Status Onset ALTERED MENTAL STATUS WITH OLD WOUNDS Acute ALOC improved ETOH abuse alcohol withdrawal ... on Librium leukoctosis now resolved anemia hb 8.2 possible sepsis pna improved. blood culture negative elevated BNP will order cardiac consult hypotensive improved hepatic encephalopathy improved ... 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 Permethrin topical PT eval Nutritional Asmnt/Malnutr-PDOC - Dietary Evaluation Malnutrition Findings (Please click <Entered> for more info): Nutritional Asmnt/Malnutrition Start: 11/25/17 17: 20 Text: Status: Complete Freq: Protocol: Document 11/25/17 17:20 LCDILANG (Rec: 11/25/17 17:36 LCDILANG [email or web address]) Nutritional Asmnt/Malnutrition Patient General Information Nutritional Screening Moderate Risk Consult Diagnosis ALOC, possible PNA aspiration, ETOH Pertinent Medical Hx/Surgical Hx HTN, dyslipidemia, dementia, Subjective Information Consult received for multiple wounds. Pt seen lying in bed at time of visit, awake and alert, on banana bag. Oral diet started from lunch today. Pt stated he was hungry. Per EMR, pt consumed 100% of lunch . Current Diet Order/ Nutrition Support [facility] soft ground Pertinent Medications D5-0.9%ns, banana bag, protonix, piperacillin Pertinent Labs 11/25 na 134, Cl 108, glucose 104, Ca 8.1, alb 2.5 Nutritional Hx/Data Height 1.68 m Height (Calculated Centimeters) 167.6 Current Weight (lbs) 58.967 kg Weight (Calculated Kilograms) 59.0 Weight (Calculated Grams) 37643.0 [place] Body Weight 142 Body Mass Index (BMI) 20.9 Weight Status Approriate GI Symptoms GI Symptoms None Last BM none Difficult in: None Skin Integrity/Comment: scars to left shoulder, left forehead and left foot skin tear to left upper back Current %PO Good (75-100%) Estimated Nutritional Goals BEE in Kcals: Using Current wt Calories/Kcals/Kg 27-32 Kcals Calculated 7390-1059 Protein: Using Current wt Protein g/k-1.2 Protein Calculated 59-71 Fluid: ml 1593-1888ml (1ml/kcal) Nutritional Problem 1. Problem Problem altered nutrition related labs Etiology electrolytes imbalance Signs/Symptoms: na 134, Cl 108, Ca 8.1 Malnutrition Alert Is there a minimum of two criteria No selected? Query Text:Check all the applicable criteria. A minimum of two criteria are recommended for diagnosis of either severe or non-severe malnutrition. Malnutrition Related to Morbid Obesity Malnutrition related to morbid obesity No Intervention/Recommendation Comments 1. Continue with current diet as ordered. 2. Monitor PO intake, wt, labs and skin integrity 3. F/U as moderate risk in 3-5 days, 11/28-11/30 Expected Outcomes/Goals Expected Outcomes/Goals 1. PO intake to meet at least 75% of nutritional needs. 2. Wt stability, skin to remain intact, labs to approach WNL.
[2017-12-09] MEDS: Venelex 60gm Tube TP SCH (09:24)
[2017-12-09] MEDS: Pantoprazole 40 mg EC Tab PO SCH (09:24)
[2017-12-09] MEDS: Lactobacillus Rhamnosus GG 15 Billion CFU CAP.SPRINK PO SCH (09:24)
--- NOTE | 2017-12-18 05:28 | Discharge Summary ---
DATE OF DISCHARGE: 12/09/2017 PRELIMINARY DIAGNOSES: 1. Altered level of consciousness. 2. Alcohol abuse. 3. Leukocytosis, possible sepsis. 4. Anemia. 5. Aspiration pneumonia. 6. Elevated BNP. 7. Hypotension. DISCHARGE DIAGNOSES: 1. Hepatic encephalopathy. 2. History of alcohol abuse. 3. Dementia. 4. Anemia, now resolved. 5. Pneumonia, now resolved. 6. Sepsis, now resolved. 7. Alzheimer's. BRIEF HISTORY OF PRESENT ILLNESS: This is a 62-year-old male, who presents to [facility] ER for altered level of consciousness. The patient was found unresponsive in a public transportation vehicle, was brought in by police to be evaluated and treated. The patient was unable to answer any questions. Majority of the history was obtained from transfer records. The patient's initial lab work revealed the following: White count of 16,000, hemoglobin 8.9, hematocrit 27.3, platelets 473. Sodium was normal at 137, potassium 3.9, BUN 21, creatinine 0.9, glucose 84. BNP was 168. Alcohol level was 274. Lactic acid was 1.85. The patient was subsequently admitted for further evaluation and treatment. During his hospital stay, the patient was initially started on Zosyn. Repeat CBC and CMP revealed an improvement of his white count, which was initially noted to be 16,000 and had gradually normalized to 6.7. Hemoglobin remained about the same. In fact, it stayed at 8.2 throughout his hospital course. The patient was found to have an elevated ammonia level at times and was treated with lactulose. He was seen and evaluated by Cardiology. Dictated report was also seen and evaluated by Pulmonary. See dictated report as well as Neurology see dictated report. The patient's behavior during his hospital stay waxed and waned between episodes of depression and anxiety. Therefore, he was seen and evaluated by Psychiatry. Please see progress notes. The patient was subsequently [facility] for [facility] care. JOB# [id number]
== END 2017-12-09 18:55 | DRG 720 ==
LOC: ER 18:38 → EDBD 23:00 → ICU 23:00 → TELE 11-27 01:25 → MSI 11-29 08:06
PROVIDERS: ADMIT Family Medicine; ATTEND Family Medicine
DX: A41.9 Sepsis, unspecified organism (principal); J69.0 Pneumonitis due to inhalation of food and vomit; I95.9 Hypotension, unspecified; K72.90 Hepatic failure, unspecified without coma; F03.90 Unspecified dementia, unspecified severity, without behavioral disturbance, psychotic disturbance, mood disturbance, and anxiety; S01.102A Unspecified open wound of left eyelid and periocular area, initial encounter; D64.9 Anemia, unspecified; B85.0 Pediculosis due to Pediculus humanus capitis; E78.5 Hyperlipidemia, unspecified; Y90.8 Blood alcohol level of 240 mg/100 ml or more; D72.829 Elevated white blood cell count, unspecified; I10 Essential (primary) hypertension; F10.239 Alcohol dependence with withdrawal, unspecified; F10.229 Alcohol dependence with intoxication, unspecified; W19.XXXA Unspecified fall, initial encounter; Z82.49 Family history of ischemic heart disease and other diseases of the circulatory system; Z59.0 Homelessness; Y93.89 Activity, other specified; Y92.89 Other specified places as the place of occurrence of the external cause; Y99.8 Other external cause status
CPT/HCPCS: 36415-UA; 70450-TC; 71045-TC; 72125-TC; 80048-TC; 80053-TC; 80061-TC; 80307; 80320-TC; 82140-TC; 82270-TC; 82550-TC; 82607-90; 82746-90; 82948-90; 83605; 83880-TC; 84439-90; 84443-TC; 84484-TC; 85007-TC; 85025-TC; 85610-TC; 85652-TC; 86850-TC; 86900-TC; 86901-TC; 93005; 94760; 96374; C9113; J2060; J2543; J3411; J3475; J7030; J7042; X3401; X6226; X6598; Z7610